=== PATIENT | female | born 1975 | race Caucasian/White ===

== ENCOUNTER 2022-05-25 01:38 | Outpatient (CLI) | payer BC, SELFPAY ==
--- OUTSIDE RECORDS SUMMARY | 2022-05-25 01:40 | XMS_ITS | Encounter Summary ---
:1975 Author Organization [facility] Address [place] [id number] Care Team Providers Name Role Phone Елена Coates MD Primary Care Provider Encounter Details Date Type Department Care Team Description 08/29/2017 Hospital Encounter Women's Health Resource Ashleigh Leach MD [facility] [address] [facility] [place] [address] OBSTETRICS & [phone] GYNECOLOGY [place] [address] (Wo rk) Social History Tobacco Use Types Packs/Day Years Used Date Former Smoker Cigarettes Quit: 10/07/19 Smokeless Tobacco: Never Used Alcohol Use Standard Drinks/Week Comments No 0 (1 standard drink = 0.6 oz pure alcoho l) Sex Assigned at Date Recorded Not on file documented as of this encounter Medications at Time of Discharge Medication Sig Dispensed Refills Start Date End Date oxyCODONE (ROXICODONE) 5 Take 1 tablet by 16 tablet 0 08/2810/09/2017 mg Tablet mouth every 4 hours as needed for Pain (Severe pain (7-10)). acetaminophen (TYLENOL) Take 325-650 mg by 0 09/0610/09/2017 325 mg Tablet mouth. Take by mouth. 0 05/22/2019 [id number] Tablet documented as of this encounter Plan of Treatment Not on filedocumented as of this encounter Visit Diagnoses Not on filedocumented in this encounter Care Teams Kindergarten Classroom Teacher Relationship Specialty Start Date End Date Елена Coates MD PCP - General 08/29/10 [address] [place] [address] documented as of this encounter
--- OUTSIDE RECORDS SUMMARY | 2022-05-25 01:40 | XMS_ITS | Encounter Summary ---
:1975 Author Organization [facility] [place] [address] Care Team Providers Name Role Phone Елена Coates MD Primary Care Provider Reason for Visit Reason Comments Care 6wk ck Encounter Details Date Type Department Care Team Description 10/09/2017 Visit Obstetrics and Carmen Rodríguez Encou nter for Gynecology at [facility] CONTENT DEVELOPMENT MANAGER routine [facility] MEDICAL follow-up [facility] [address] [place] OBSTETRICS & [id number] GYNECOLOGY [phone] [place], [place] [address] Social History Tobacco Use Types Packs/Day Years Used Date Former Smoker Cigarettes Quit: 10/07/19 Smokeless Tobacco: Never Used Alcohol Use Standard Drinks/Week Comments No 0 (1 standard drink = 0.6 oz pure alcoho l) Sex Assigned at Date Recorded Not on file documented as of this encounter Last Filed Vital Signs Vital Sign Reading Time Taken Comments Blood Pressure 137/81 10/09/2017 10:37 AM EST Pulse 93 10/09/2017 10:37 AM EST Temperature 36.7 ??C (98.1 ??F) 10/09/2017 10:37 AM EST Respiratory Rate - - Oxygen Saturation 100% 10/09/2017 10:37 AM EST Inhaled Oxygen Concentration - - Weight 51 kg (112 lb 6.4 oz) 10/09/2017 10:37 AM EST Height 160 cm (5' 3) 10/09/2017 10:37 AM EST Body Mass Index 19.91 10/09/2017 10:37 AM EST documented in this encounter Progress Notes Sara Murdock - 10/09/2017 10:40 AM EST REASON FOR VISIT: Post- exam LABOR & DEL: Pt del'd baby girl Tosha on Aug 26, C/S r/t failure to dilate, at 39 wks 5 day gestation. POLICE ACADEMY PROGRAM COORDINATOR HX: Pt is a age41 female with a hx of nl Paps. Last Pap 10/2015. No hx of STI. Medical, surgical, family and social hx reviewed ROS: Psych: PHQ 9 score 0 Breasts: : nipples sore at first, now no pain, pumping as of yesterday, no signs of mastitis Pelvic: denies pain, nl bowels and voiding Lochia: infrequent brown spotting after walking otherwise stopped bleeding two weeks ago Extremeties: no calf pain or swelling of leg CONTRACEPTION: Condoms, to get vasectomy PE: Abdomen: Without masses or tenderness Pelvic: External: WNL, laceration well healed, approximated, no sign infection Internal: WNL, cervix visualized, cytobrush used to obtain PAP Bimanual: Uterus a/v, no masses or tendernes, pre size Rectal: deferred ASSESSMENT: Unremarkable pp exam PLAN: Pap pending Carmen Snow APRN - 10/09/2017 10:40 AM EST REASON FOR VISIT: Post- exam LABOR & DEL: Pt del'd baby girl Tosha on Aug 26, C/S r/t failure to dilate, was 8 cm for 5 hrs, after TOLAC at 39 wks 5 day gestation. Pt presented with ROM, Pitocin used. POLICE ACADEMY PROGRAM COORDINATOR HX: Pt is a , 41 yo female with a hx of nl Paps. Last Pap 10/2015. No hx of STI. Medical, surgical, family and social hx reviewed ROS: Psych: PHQ 9 @ 0 Breasts: breast feeding very well, no concerns Pelvic: no concerns, couple have not had intercourse. Lochia: d/c 2 wks ago Extremeties: no pain CONTRACEPTION: condoms, might get vasectomy PE: Abdomen: Without masses or tenderness, incision completely healed Pelvic: External: WNL, Internal: WNL, cervix visualized, Pap obtained Bimanual: Uterus a/v, no masses or tendernes, pre size Rectal: deferred ASSESSMENT: Unremarkable pp exam PLAN: Pap pending documented in this encounter Plan of Treatment Not on filedocumented as of this encounter Procedures Procedure Name Priority Date/Time Associated Comments Diagnosis CYTOPATHOLOGY Routine 10/09/2017 1:21 PM Encounter for Results for this GYNECOLOGICAL EST routine procedur e are in follow-up the results section. HPV Routine 10/09/2017 10:40 Results for this AM EST procedure are i n the results section. RECTIFYING OPERATOR CYTOLOGY Routine 10/09/2017 10:40 Results for this INTERPRETATION AM EST procedure are in the results section. RECTIFYING OPERATOR CYTOLOGY FINAL Routine 10/09/2017 10:40 Resul ts for this REPORT AM EST procedure are i n the results section. documented in this encounter Results Cytopathology Gynecological (10/09/2017 1:21 PM EST) Specimen Anatomical Collection Method Collection Time Receive d Time (Source) Location / / Volume Laterality AP Specimen 10/09/2017 1:21 PM 8 1:21 EST PM EST Narrative [facility] - 10/09/2017 1:21 PM EST Specimen requisition ordered. ??Separate Pathology report to follow Carmen Rodríguez APRN PATHOLOGY/CYTOLOGY ORDERABLE S Performing Organization Address City/State/[place] [address] Lens Inserter Cytology Final Report (10/09/2017 10:40 AM EST) Component Value Ref Test Analysis Performed At [facility] gist Range Method Time Signature Lens Inserter Cytology [id number] ? Location: [facility] Final [facility] The signing pathologist has (i) examined the relevant preparation(s) for the [facility]ORIAL specimen(s) and (ii) rendered or confirmed the diagnosis(es) . HOSPITAL LABORATORY . ? Lens Inserter Final DIAGNOSIS Normal Negative for Intraepithelial Lesion or Malignancy (NILM). For consensus guidelines for the management of c ervical cancer screening test results, please see: ?? http://www.asccp.org . Electronically signed by: ??Nat CT(ASCP), Amanda L Verified: ??10/22/2017 ?Occupational Analyst Performed at: ??-[facility] Dept. of Pathology, [place], [place] HPV RESULTS HPV16 (Result) ?Negative HPV18 (Result) ?Negative HPVOHR (Result) ? Negative HPV (Interpretation) ?See Below HPV (Interpretation) Text: NEGATIVE for high-risk HPV *. *Testing negative for high risk HPV means that the specimen is negative for the following 14 types tested: types 16, 18, 31, 33, 35 , 39, 45, 51, 52, 56, 58, 59, 66, and 68. The test is not intended to detect low risk HPV types. Reggie bello HPV test Specimen: HPV Testing - Cytology Liquid Based Prep The Reggie bello ? HPV hao t was validated, performed and results reported through the Laboratory for Clinical Gen omics and Advanced Technology (CGAT) at [facility]. ? - Pedrito Mcelroy, PhD, FORMERLY [facility], Director-[facility] STATEMENT OF ADEQUACY Specimen submitted is satisfactory. Endocervical component present. CLINICAL INFORMATION HPV Option: ?Concurrent HPV and Pap Preparation: ? Liquid based Pap Specimen Source: ? Cervical/Endocervical LMP: ? 11/20/16 Hormones?: ? No Hysterectomy?: ? No ?: ? Yes ?: ? No I.U.D.?: ? No Pelvic Radiation: ?No Prior RECTIFYING OPERATOR Therapy?: ?No Hist Abnl Pap/Biopsy?: ?? No Hist of HPV Vaccine?: ?No Hist of Smoking?: ?Yes Hist of TALITA exposure?: ?? No ICD Diagnosis: ? Z12.4 Encounter for screening for malignant neoplasm of cervix Clinical Data, Significant Therapy and Clinical Impression ? ? : . CLINICAL INFORMATION ?_ This Pap Test has been evalu ated with the assistance of the 20linesp Pap Test Imaging System. Note: The Pap test is a screening test for cervical cancer with an inherent false-negative rate dependent upon several variables. For further information please contact the [facility] Laboratory. Reference: Shahid CONROY. Side Stitcher of Pap Smear Results. In: Irma BS, Nadir CASH, e av. The Pap Smear. [place]: Madi, 2002: 71-77. Specimen (Source) Anatomical Collection Method Collection Time Re ceived Time Location / / Volume Laterality 10/09/2017 10:40 AM EST Carmen Rodríguez APRN PATHOLOGY/CYTOLOGY ORDERABLE S Performing Organization Address City/State/[place] [address] RECTIFYING OPERATOR Cytology Interpretation (10/09/2017 10:40 AM EST) [facility] gist Method Time Signature Lens Inserter Cytology NILM [facility] Comment: Lens Inserter Cytology Final Report Acces kriss: [id number] Endocervical Component Present [facility] Specimen Anatomical Collection Method Collection Time Receive d Time (Source) Location / / Volume Laterality AP Specimen 10/09/2017 10:40 10/22/2017 4:50 AM EST PM EST Carmen Rodríguez APRN PATHOLOGY/CYTOLOGY ORDERABLE S Performing Organization Address City/State/[place] [address] HPV (10/09/2017 10:40 AM EST) [facility] Method Time Signature HPV 16 NEGATIVE NEGATIVE [facility] HPV 18 NEGATIVE NEGATIVE [facility] HPV Other HR NEGATIVE NEGATIVE [facility] HPV See Comment OVIDIO Interpretation [facility] Comment: NEGATIVE for high-risk HPV *. * Testing negative for high risk HPV davey ns that the specimen is negative for the following 14 types tested: ??types 1 6, 18, 31, 33, 35, 39, 45, 51, 52, 56, 58, 59, 66, and 68. ??The test is not in tended to detect low risk HPV types. Reggie Bello HPV test Specimen: HPV Testing - Cytology Liquid Based Prep Specimen Anatomical Collection Method Collection Time Receive d Time (Source) Location / / Volume Laterality Cervical swab 10/09/2017 10:40 10/09/2017 3:00 (specimen) AM EST PM EST Resulting Agency Comment Spec In Lab Carmen Rodríguez APRN PATHOLOGY/CYTOLOGY ORDERABLE S Performing Organization Address City/[facility]/[place]IP [place] [address] documented in this encounter Visit Diagnoses Diagnosis Encounter for routine follow- up Routine follow-up documented in this encounter Care Teams Ware Server Relationship Specialty Start Date End Date Елена Coates MD PCP - General 08/29/10 [address] [place] [address] documented as of this encounter
--- OUTSIDE RECORDS SUMMARY | 2022-05-25 01:40 | XMS_ITS | Clinical Summary ---
:1975 Author Organization 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 C/S for failure to descend, OP per pt AMA (advanced maternal age) multigravida 35+ 7 Overview: Formatting of this note is dif ferent from the original. Team/Centering [place] - pod review 08/15 Delivery Plan Likely - needs consen t Referring provider FIRST TRIMESTER NOB labs WNL Aneuploidy screen [place]/AFP negative CF screen Previously negative Other: early GCT, aspirin, TSH Baseline pre-eclampsia screen labs PATCH WASHER/Behavioral Health consult/ATP MFM/genetics SECOND TRIMESTER 18-20 week US scan Marginal cord Tubal paper signed THIRD TRIMESTER 28 week labs 06/04/17 gtt @ 151; will do 3 hr (WNL) testing SBIRT GBS Negative 36 week STD labs Contraception Tubal papers signed condom Infant nutrition breast Child education preferences Santa[employer]S Helper/ issues/ Circumcision St J pedi Planning IMMUNIZATIONS Influenza TDAP declines : Varicella, MMR, Pneumovax im m/imm *Aspirin High risk >= 3 Low risk TSH History preeclampsia Multifetal gestation Chronic hypertension Pre-gestational diabetes Renal disease Systemic lupus AntiPhospholipidAntibodySyndrome Nullipa rity Age >= 35 years >10 year interval between BMI > 30 kg/m2 ethnicity Mother or sister with preeclampsia Previous with IUGR Symptoms Personal history of thyroid disease or T PO antibodies Family history Goiter Autoimmune disease Type I diabetes Infertility or recurrent miscarriage BMI >40 kg/m2 Immigrant from areas of moderate to audrey re iodine deficiency Telogen effluvium 04/26/2015 Nevus 05/13/2014 Elevated blood pressure reading in office with white c oat syndrome, 02/09/2009 without diagnosis of hypertension Overview: At first visit. Pt taking BP at home. Baseline pre-eclampsia labs done and normal Resolved Problems Problem Noted Date Resolved Date CIS - at risk 02/09/2009 09/01/2014 Overview: Elevated MSAFP at 2.06 MOM X2 4 days apa rt Dating based on a 9 week ultrasound Local ultrasound at 18 weeks confirmed n ormal growth based on the first ultrasound. Encounters Date Type Specialty Care Team Description 05/15/2022 Office Visit Dermatology Dmitriy Becker, Atypical nevi; MD Ramsay 03/02/2022 Hospital Encounter Radiology Елена Coates, MD Stephanie middleton for screening mammogram from Last 3 Months Family History Medical History Relation Comments Congenital Anomalies Cousin at and w as missing several organs Heart Disease Father Hypertension Father Congenital Anomalies Father of Baby Relative 1 His cousin nicolas rminated a due to anomalies ( organs were on the outside of the body) Loss Father of Baby Relative 2 His mother had a stillborn daughter Genetic Disorder Mother Gilbert syndrome Heart Disease Paternal Grandfather Hyperlipidemia Paternal Grandfather Hypertension Paternal Grandfather Genetic Disorder Sister Gilbert syndrome Allergies Son Peanut/tree nut Relation Status Comments Cousin Father Father of Baby Relative 1 Father of Baby Relative 2 Maternal Grandfather Mother Paternal Grandfather Sister Son Social History Tobacco Use Types Packs/Day Years Used Date Former Smoker Cigarettes Quit: 10/07/19 Smokeless Tobacco: Never Used Alcohol Use Standard Drinks/Week Comments No 0 (1 standard drink = 0.6 oz pure alcoho l) Sex Assigned at Date Recorded Not on file Last Filed Vital Signs Vital Sign Reading Time Taken Comments Blood Pressure 137/81 10/09/2017 10:37 AM EST Pulse 93 10/09/2017 10:37 AM EST Temperature 36.7 ??C (98.1 ??F) 10/09/2017 10:37 AM EST Respiratory Rate 16 08/28/2017 8:31 AM EST Oxygen Saturation 100% 10/09/2017 10:37 AM EST Inhaled Oxygen Concentration - - Weight 51 kg (112 lb 6.4 oz) 10/09/2017 10:37 AM EST Height 160 cm (5' 3) 10/09/2017 10:37 AM EST Body Mass Index 19.91 10/09/2017 10:37 AM EST Plan of Treatment Health Maintenance Due Date Last Done Comments Covid-19 Vaccine (#1) 1982 Hepatitis C Screening 1995 Lipid Screening 1995 Tdap adult 1996 Tetanus vaccine 1996 Breast Cancer Share Decision 2017 Needed Influenza (Flu) vaccine (1 of - 06/07/2022 Influenza standard series) HPV test 10/09/2022 10/09/2017 PAP Smear 10/09/2022 10/09/2017, 05/24/2008, 12/25/2006, Additional history exists HIV screen Completed 02/12/2017 Procedures Procedure Name Priority Date/Time Associated Diagnosis Comme nts MAMMO SCREENING CAD Routine 03/02/2022 8:06 AM Visit for ender fenton Results for this AND BENJI BILATERAL EDT mammogram procedure are in the results section. from Last 3 Months Results Mammo Screening Cad and Benji Bilateral (03/02/2022 8:06 AM EDT) Anatomical Region Laterality Modality Breast Bilateral Mammography Specimen (Source) Anatomical Location Collection Method / Collectio n Time Received Time / Laterality Volume Narrative 03/02/2022 11:06 AM EDT EXAMINATION: MAMMO SCREENING CAD AND BENJI BILATERAL REASON FOR EXAM: Screening TECHNIQUE: 2D digitally acquired Cranioc audal (CC) and Medio-lateral oblique (MLO) views were obtained of each breast . 3D tomosynthesis images were obtained in addition to 2D images. ??Computer Ass isted Detection was used. COMPARISON: Baseline mammogram FINDINGS: The breasts are heterogeneousl y dense, which may obscure small masses. There are no suspicious microcalcificati ons, masses, or areas of distortion. No changes compared to prior studies. CONCLUSION: No mammographic evidence of malignancy. RECOMMENDATION: Routine annual screening BI-RADS CATEGORY 1: NEGATIVE * ??Regular screening mammograms startin g between age 40 and 50 reduces the risk of from breast cancer. * ??All screening tests have both risks and benefits. These risks and benefits should be assessed for each individual p atient through discussion with their provider to determine their preferred br east cancer screening schedule. * ??Women should report any breast king es to a health care provider right away. * ??Some women, because of their family history, a genetic tendency, or other factors, should be screened with annual breast MRI as well as with mammograms. (The number of women who fall into this category is very small). Patients and health care providers should discuss eac h patients history to decide if earlier screening and/or breast MRI are appropri ate. * ??Screening should continue as long as a woman is in good health and is expected to live 10 years or longer. * ??Screening mammography may not detect 10-15% of breast cancers. Thank you for letting us participate in the care of this patient. ??If you are a health care provider and have any questi ons regarding this report, please contact the number below. ??For patients who have questions please contact the health care coordinator that requested your imaging first. ? Елена Coates MD IMG MAMMO ORDERABLES from Last 3 Months Insurance Payer Benefit Plan Subscriber ID Effective Dates Phone Address Type / Group [facility] [id number] 2021-Presen [phone] [address] [place] [address] Advance Directives Latest Code Status on File Code Status Date Activated Date Inactivated Comments Full Code 08/25/2017 5:59 AM 08/28/2017 3:12 PM Does patient have capacity to make decision: Yes Care Teams Programming Coordinator Relationship Specialty Start Date End Date Елена Coates MD PCP - General 08/29/10 [address] [place], [place] [address]
--- OUTSIDE RECORDS SUMMARY | 2022-05-25 01:40 | XMS_ITS | Encounter Summary ---
:1975 Author Organization [place] [address] Care Team Providers Name Role Phone Елена Coates MD Primary Care Provider Encounter Details Date Type Department Care Team Description 03/02/2022 Hospital Encounter Mammography/DXA at Елена Coates V isit for screening [facility] MD mammogram [address], [address] [place] [address] [phone] Social History Tobacco Use Types Packs/Day Years Used Date Former Smoker Cigarettes Quit: 10/07/19 Smokeless Tobacco: Never Used Alcohol Use Standard Drinks/Week Comments No 0 (1 standard drink = 0.6 oz pure alcoho l) Sex Assigned at Date Recorded Not on file documented as of this encounter Plan of Treatment Not on filedocumented as of this encounter Procedures Procedure Name Priority Date/Time Associated Diagnosis Comme nts MAMMO SCREENING CAD Routine 03/02/2022 8:06 AM Visit for ender fenton Results for this AND BENJI BILATERAL EDT mammogram procedure are in the results section. documented in this encounter Results Mammo Screening Cad and Benji Bilateral [...] have questions please contact the health care provider that requested your imaging first. ? Елена Coates MD IMG MAMMO ORDERABLES documented in this encounter Visit Diagnoses Diagnosis Visit for screening mammogram Other screening mammogram documented in this encounter Care Teams Park Services Specialist Relationship Specialty Start Date End Date Елена Coates MD PCP - General 08/29/10 [address] [place] [address] documented as of this encounter
--- OUTSIDE RECORDS SUMMARY | 2022-05-25 01:40 | XMS_ITS | Encounter Summary ---
:1975 Author Organization [facility] [place] [address] Care Team Providers Name Role Phone Елена Coates MD Primary Care Provider Reason for Visit Reason Comments Follow-up Skin Check Encounter Details Date Type Department Care Team Description 05/22/2019 Office Visit Dermatology at Dmitriy Becker MD Atypical nevus; [place] [address] Melasma [address] [facility] Rodolfo DERMAT[place] [address] [place], [place] [phone] (Wo rk) [phone] Social History Tobacco Use Types Packs/Day Years Used Date Former Smoker Cigarettes Quit: 10/07/19 Smokeless Tobacco: Never Used Alcohol Use Standard Drinks/Week Comments No 0 (1 standard drink = 0.6 oz pure alcoho l) Sex Assigned at Date Recorded Not on file documented as of this encounter Progress Notes Dmitriy Becker MD - 05/22/2019 10:15 AM EDT Problem: 1. Repeat skin checkup 2. 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 She is here for a every 2 year skin checkup. She has numerous nevi and would like to have these checked. Physical examination reveals a pleasant 43-year-old woman who has a number of mildly atypical nevi in the upper back. She has brown eyes and type III Lam pigmentation but relatively otherwise fair skin. She has junctional melanocytic nevi present also on the forearms and on her legs. She has mild melasma on the right medial cheek and also a little bit on the upper malar prominence. Otherwise examination of the head and the neck the chest the back the hands informs thighs and calves benign. Assessment and plan: Benign nevi benign skin examination 1. Return to clinic in 2 to 3 years for recheck. 2. Patient reassured, continue sun with precautions. Melasma/solar lentigo right malar prominence 1. Prescription given for hydroquinone 4% cream to apply every morning, dispense 30 g with 3 refills, and tretinoin 0.025% cream 20 g, with 3 refills apply nightly. Patient may feel this utilizing the dentaZOOM website as she has a high co-pay. 2. Discussed the option of [place] mail away pharmacy's for instance for her EpiPen requirement forher son. Otherwise it would be a $300 to 600 [id number] cost for this. CC: Елена Coates MD documented in this encounter Plan of Treatment Not on filedocumented as of this encounter Visit Diagnoses Diagnosis Atypical nevus Benign neoplasm of skin, site unspecifie d Melasma Other dyschromia documented in this encounter Care Teams Materials Management Clerk Relationship Specialty Start Date End Date Елена Coates MD PCP - General 08/29/10 [address] [place] [address] documented as of this encounter
--- OUTSIDE RECORDS SUMMARY | 2022-05-25 01:40 | XMS_ITS | Encounter Summary ---
:1975 Author Organization [facility] [place] [address] Care Team Providers Name Role Phone Елена Coates MD Primary Care Provider Reason for Visit Reason Comments Annual Exam Encounter Details Date Type Department Care Team Description 05/15/2022 Office Visit Dermatology at [facility] Dmitriy Becker MD Atypical nevi; [address] [place] [address] Melasma [place] [address] [place], [place] [id number] (Wo rk) Social History Tobacco Use Types Packs/Day Years Used Date Former Smoker Cigarettes Quit: 10/07/19 Smokeless Tobacco: Never Used Alcohol Use Standard Drinks/Week Comments No 0 (1 standard drink = 0.6 oz pure alcoho l) Sex Assigned at Date Recorded Not on file documented as of this encounter Progress Notes Dmitriy Becker MD - 05/15/2022 10:30 AM EDT Problem: 1. Repeat every 2-3 year skin checkup 2. History of facial melasma last evaluated May 2019 Sisi follows up and is now 46. She would like to have a general skin checkup. 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 She did not fill the hydroquinone prescription from her 2019 visit, having lost the prescription. However she would like to have another prescription for hydroquinone cream and also my advice for treating a persistent comedonal on the right upper lip along the vermilion border, and her general every 2-3 year skin checkup.. Physical examination reveals a pleasant 46-year-old woman who has a number of mildly atypical nevi on her upper back. She has brown eyes and type III Lam pigmentation but otherwise fair skin she has benign examination of the head and the neck the chest the back the hands and forearms thighs and calves. She has mild melasma on the lateral cheeks bilaterally. There is no evidence of any malignant lesions. Assessment plan: Benign nevi benign skin examination 1. Return to clinic another 2 to 3 years for repeat check 2. Patient reassured about her benign skin examination today Melasma/solar lentigo facial sites 1. Patient given refill for hydroquinone 4% cream to apply in a twice daily basis. Dispense 30 g with 5 refills. She was given a written prescription for this today. Comedonal upper lip along vermilion vermilion border 1. Patient has just purchased a vitamin a serum, from the [employer], advised that she use this for a month or 2 to see if this will help clear the single comedone on the upper lip. 2. If not begin tretinoin 0.025% cream applying on a nightly basis to affected area dispense 20 g with 5 refills. She was given a written prescription for this. CC: Елена Coates MD documented in this encounter Plan of Treatment Not on filedocumented as of this encounter Visit Diagnoses Diagnosis Atypical nevi Benign neoplasm of skin, site unspecifie d Melasma Other dyschromia documented in this encounter Care Teams Steamer Gum Candy Relationship Specialty Start Date End Date Елена Coates MD PCP - General 08/29/10 [address] [place] [address] documented as of this encounter
--- OUTSIDE RECORDS SUMMARY | 2022-05-25 01:41 | XMS_ITS | Encounter Summary ---
:1975 Author Organization [facility] [place] [address] Care Team Providers Name Role Phone Елена Coates MD Primary Care Provider Reason for Visit Reason Comments Routine Visit Encounter Details Date Type Department Care Team Description 08/13/2017 Routine Obstetrics and Carmen Rodríguez APRN GA: 38w0d Gynecology at [facility] [address] [place] & [place] [address] GYNECOLOGY [phone] [place], [place] [address] (Wo rk) Social History Tobacco Use Types Packs/Day Years Used Date Former Smoker Cigarettes Quit: 10/07/19 Smokeless Tobacco: Never Used Alcohol Use Standard Drinks/Week Comments No 0 (1 standard drink = 0.6 oz pure alcoho l) Sex Assigned at Date Recorded Not on file documented as of this encounter Last Filed Vital Signs Vital Sign Reading Time Taken Comments Blood Pressure 132/81 08/13/2017 11:17 AM EST Pulse - - Temperature - - Respiratory Rate - - Oxygen Saturation - - Inhaled Oxygen Concentration - - Weight 60.7 kg (133 lb 12.8 oz) 08/13/2017 11:17 AM EST Height - - Body Mass Index 23.51 01/22/2017 10:20 AM EDT documented in this encounter Progress Notes Shanice Schofield LPN - 08/13/2017 11:20 AM EST The patient denies travel by her or her partner to an area with endemic Zika infection including [place]. Carmen Rodríguez APRN - 08/13/2017 11:20 AM EST No cramps, bleeding or LOF. Baby active, would like membrane sweep today, is hoping for . Cervical exam performed; presenting part very high, bedside US confirms cephalic. documented in this encounter Plan of Treatment Not on filedocumented as of this encounter Visit Diagnoses Diagnosis AMA (advanced maternal age) multigravida 35+, third trimester documented in this encounter Care Teams Animal Control Supervisor Relationship Specialty Start Date End Date Елена Coates MD PCP - General 08/29/10 [address] [place] [address] documented as of this encounter
--- OUTSIDE RECORDS SUMMARY | 2022-05-25 01:41 | XMS_ITS | Encounter Summary ---
:1975 Author Organization [facility] [place] [address] Care Team Providers Name Role Phone Елена Coates MD Primary Care Provider Encounter Details Date Type Department Care Team Description 05/24/2008 Orders Only Radiology and Cardiology Apd Conversion, Results Results Provider, [address] [place] [phone] Social History Tobacco Use Types Packs/Day Years Used Date Never Assessed Sex Assigned at Date Recorded Not on file documented as of this encounter Plan of Treatment Not on filedocumented as of this encounter Procedures Procedure Name Priority Date/Time Associated Diagnosis Comme nts CYTOPATHOLOGY Routine 05/24/2008 Results for th is GYNECOLOGICAL procedure are in the results section . documented in this encounter Results (ABNORMAL) Cytopathology Gynecological (05/24/2008) [facility] Method Time Signature Solar Resource Assessor Cytology Please see [facility]ERE FAIRCHILD Final Report Bere Verma CONVERSION legacy report (External Lab) Specimen (Source) Anatomical Location Collection Method / Collectio n Time Received Time / Laterality Volume 05/24/2008 Narrative BERE VERMA CONVERSION - 05/31/2008 Please see Bere Fairchild Legacy report Results Provider Apd Conversion PATHOLOGY/CYTOLOGY ORDERABLES Performing Organization Address City/State/ZIP Code Phon e Number BERE VERMA CONVERSION [address] [place], [place] [address] [facility] CONVERSION documented in this encounter Visit Diagnoses Not on filedocumented in this encounter Care Teams Ruby Developer Relationship Specialty Start Date End Date Елена Coates MD PCP - General 08/29/10 [address] [place] [address] documented as of this encounter
--- OUTSIDE RECORDS SUMMARY | 2022-05-25 01:41 | XMS_ITS | Encounter Summary ---
:1975 Author Organization [facility] [place] [address] Care Team Providers Name Role Phone Елена Coates MD Primary Care Provider Reason for Visit Reason Onset Date Comments Results 02/18/2017 Encounter Details Date Type Department Care Team Description 02/18/2017 Telephone Obstetrics and Gynecology at [facility] Gen garrett LGC Results [facility] [address] OBSTETRICS & [place] [address] [place] [address] [phone] (Wo rk) Social History Tobacco Use Types Packs/Day Years Used Date Former Smoker Cigarettes Quit: 10/07/19 Smokeless Tobacco: Never Used Alcohol Use Standard Drinks/Week Comments No 0 (1 standard drink = 0.6 oz pure alcoho l) Sex Assigned at Date Recorded Not on file documented as of this encounter Miscellaneous Notes Telephone Encounter - Gen Burroughs LGC - 02/18/2017 1:59 PM EDT Genetic Counseling Telephone Note I informed Sisi Ruiz of the following results by phone today: [place] Test: Condition Result Probability Trisomy 21 Low Probability Less than 1/10,000 Trisomy 18 Low Probability Less than 1/10,000 Trisomy 13 Low Probability Less than 1/10,000 Monosomy X Low Probability Less than 1/100 Sex Female The laboratory report will be scanned into eD-H. documented in this encounter Plan of Treatment Not on filedocumented as of this encounter Visit Diagnoses Not on filedocumented in this encounter Care Teams Test Engineering Intern Relationship Specialty Start Date End Date Елена Coates MD PCP - General 08/29/[address] [facility] [address] [place] [address] documented as of this encounter
--- OUTSIDE RECORDS SUMMARY | 2022-05-25 01:41 | XMS_ITS | Encounter Summary ---
:1975 Author Organization [facility] [place] [address] Care Team Providers Name Role Phone Еелна Coates MD Primary Care Provider Reason for Visit Reason Comments Routine Visit Encounter Details Date Type Department Care Team Description 08/02/2017 Routine Obstetrics and Rachell Alex MD GA: 36w3d Gynecology at [facility] [address] [place] [address] GYNECOLOGY [phone] [place], [place] [address] (Wo rk) Social History Tobacco Use Types Packs/Day Years Used Date Former Smoker Cigarettes Quit: 10/07/19 Smokeless Tobacco: Never Used Alcohol Use Standard Drinks/Week Comments No 0 (1 standard drink = 0.6 oz pure alcoho l) Sex Assigned at Date Recorded Not on file documented as of this encounter Last Filed Vital Signs Vital Sign Reading Time Taken Comments Blood Pressure 130/83 08/02/2017 4:41 PM EDT Pulse - - Temperature - - Respiratory Rate - - Oxygen Saturation - - Inhaled Oxygen Concentration - - Weight 60.3 kg (133 lb) 08/02/2017 4:41 PM EDT Height - - Body Mass Index 23.37 01/22/2017 10:20 AM EDT documented in this encounter Progress Notes Shanice Schofield LPN - 08/02/2017 4:30 PM EDT The patient denies travel by her or her partner to an area with endemic Zika infection including [place]. Declines Tdap immunization. The patient was given two booklets; Going Home with Your and Anesthesia Guidelines. A Labor instructions term pamphlet, Group B Streptococcus Informational Sheet, and Circumcision Letter (if applicable) was also given. The patient received additional pamphlets entitled Position and Tips for Successful and [facility] Services. The importance of the materials was discussed and the patient was encouraged to read the information and direct questions to the provider. Rachell Alex MD - 08/02/2017 4:30 PM EDT Sisi presents for a PNC visit at 36+3. She has been feeling well and has no complaints. + movement, no ctx, no LOF/VB. Delivery mode: She is strongly considering but nervous about having a long labor and needing a . Her first : PROM @ 41 wks, IOL, 37 hrs labor, 10 cm dilated, pushed a little but was told heruterus wasn't luis carlos well, developed a fever and underwent LTCS of 7 lb 12 oz . EFW 83%ile on 32 wk growth scan. My clinical EFW today is 5-6 lbs, does not seem LGA. We discussed risks of including ~1% risk of uterine rupture. We also discussed possibly electing if spontaneous labor and C/S if not if she wants to avoid induction. She would like to keep her mind open at this point, but hopes to have a vaginal . We did not sign a consent form today. We also discussed labor precautions, when to call and options for analgesia during labor. GBS collected. - next visit in 1 wk - will request C/S operative note Rachell Alex MD PGY2 Josseline Milner MD - 08/02/2017 4:30 PM EDT The case was discussed at the time of the visit or immediately after the visit. The assessment and plan were formulated in discussion with me and I agree with them as documented. I have reviewed the history, physical exam, assessment and plan with the resident. documented in this encounter Plan of Treatment Not on filedocumented as of this encounter Procedures Procedure Name Priority Date/Time Associated Comments Diagnosis GROUP B STREPTOCOCCUS Routine 08/02/2017 5:10 PM Results for this SCREEN EDT procedure are i n the results section. GROUP B STREP CULTURE Routine 08/02/2017 5:10 PM Encounter for Results for this SCREEN EDT related procedure are in examination in the results third trimester section. documented in this encounter Results Group B Streptococcus Screen (08/02/2017 5:10 PM EDT) P athologist Signature Group B Strep Neg [facility] LABORAT[facility] Specimen (Source) Anatomical Collection Method Collection Time Re ceived Time Location / / Volume Laterality Pooled specimen 08/02/2017 5:10 7 5:50 from vaginal PM EDT PM EDT introitus and rectal swab (specimen) Comment: Penicillin Allergy?->No Resulting Agency Comment Spec In Lab Josseline Milner MD MICROBIOLOGY - GENERAL ORDER JEANMARIE Performing Organization Address City/State/[place] [address] Group B Strep Culture Screen (08/02/2017 5:10 PM EDT) Component Value Ref Test Analysis Performed At Patholo gist Range Method Time Signature Group B No Group B OVIDIO Streptococcus Streptococci CELY Culture isolated [facility] Specimen (Source) Anatomical Collection Method Collection Time Re ceived Time Location / / Volume Laterality Pooled specimen 08/02/2017 5:10 7 5:50 from vaginal PM EDT PM EDT introitus and rectal swab (specimen) Comment: PENICILLIN ALLERGY?->NO Resulting Agency Comment Spec In Lab Josseline Milner MD MICROBIOLOGY - GENERAL ORDER JEANMARIE Performing Organization Address City/State/[place] [address] documented in this encounter Visit Diagnoses Diagnosis Encounter for related examinat ion in third trimester Elevated blood pressure reading in offic e with white coat syndrome, without diagnosis of hypertension Elderly multigravida in third trimester documented in this encounter Care Teams Speeder Machine Operator Relationship Specialty Start Date End Date Елена Coates MD PCP - General 08/29/10 [address] [place] [address] documented as of this encounter
--- OUTSIDE RECORDS SUMMARY | 2022-05-25 01:41 | XMS_ITS | Encounter Summary ---
:1975 Author Organization [facility] [place] [address] Care Team Providers Name Role Phone Елена Coates MD Primary Care Provider Reason for Visit Reason Comments Advanced Maternal Age [age] years old at [facility] Encounter Details Date Type Department Care Team Description 07/13/2014 Office Visit Obstetrics and Gen Burroughs, Materna l age 35+, multigravida, antepartum, first trimester (Primary Dx); Gynecology at [facility] Encounter for genetic counseling [facility] [address] [place], [place] OBSTETRICS & [address] GYNECOLOGY [phone] [place], [place] [address] Social History Tobacco Use Types Packs/Day Years Used Date Former Smoker Alcohol Use Standard Drinks/Week Comments No 0 (1 standard drink = 0.6 oz pure alcoho l) Sex Assigned at Date Recorded Not on file documented as of this encounter Progress Notes Gen Burroughs, MS - 07/13/2014 10:04 AM EDT GENETIC COUNSELING NOTE Sisi Pilar Joseph was referred to the Diagnosis Program by Anita Carlson CNM. I met with Sisi for a 45 minute genetic counseling visit. Chief Complaint Patient presents with ??? Advanced Maternal Age [age] years old at [facility] Past Medical History Diagnosis Date ??? White coat hypertension ??? Childhood asthma ??? Migraine headache Family History Problem (# of Occurrences) Relation (Name,Age of Onset) Allergies (1) Son: Peanut/tree nut Congenital Anomalies (2) Cousin: at and was missing several organs, Father of Baby Relative: His cousin terminated a due to anomalies (organs were on the outside of the body) Genetic Disorder (2) Mother: Gilbert syndrome, Sister: Gilbert syndrome Loss (1) Father of Baby Relative: His mother had a stillborn daughter The reported family history was otherwise unremarkable for intellectual disability, congenital anomalies, recurrent loss, or known genetic conditions. Sisi is of Chinese, Kyrgyz, Malian, and ancestry. Her partner, Kevin Merchant, is of Frisian and Belarusian ancestry. Consanguinity is denied. OB History Grav Para Term Abortions TAB SAB Ect Mult Living 3 1 1 1 1 1 Patient's last menstrual period was 04/20/2014. Estimated Date of Delivery: 01/25/2015 based on menstrual dating and confirmed by ultrasound (10w0d on 06/30/2014). Screening Results Test Result ??? Cystic fibrosis carrier screen Negative for 97 mutations ??? Thalassemia screen MCV within normal limits (86.8 fL) Assessment 38 y.o. female currently at 12w0d gestation who desires aneuploidy screening. Discussion Advancing maternal age is associated with an increased rate of aneuploidy due to nondisjunction. We discussed the difference between screening and diagnostic testing for aneuploidy. After reviewing the benefits, risks, and limitations of each type of test, Sisi stated that she would like to have a screening test at this time. She would consider diagnostic testing for a positive screen. We are offering the [place] Test, which is a type of cell-free DNA screening, to women of advanced maternal age. The [place] Test provides a risk score for trisomy 21, trisomy 18, andtrisomy 13. X and Y analysis for sex chromosome aneuploidy is also available. We discussed the sensitivity and specificity of the test for each condition. Sisi opted for the [place] Test with Y analysis; she would like to know the sex of the fetus but declines screening for X chromosome aneuploidy. Plan Sisi will have her blood drawn today for the [place] Test with Y Analysis. Results are expected in 10-14 days. I will call her when the results are available. documented in this encounter Miscellaneous Notes Miscellaneous - Provider, Scanning - 07/29/2014 5:35 PM EDT Miscellaneous - Provider, Scanning - 07/29/2014 5:33 PM EDT documented in this encounter Plan of Treatment Not on filedocumented as of this encounter Results Miscellaneous Lab request (07/13/2014 10:09 AM EDT) [facility] gist Method Time Signature [facility] Lab Request CERNER Result received in [facility] lab. Specimen Anatomical Collection Method Collection Time Receive d Time (Source) Location / / Volume Laterality Blood specimen 07/13/2014 10:09 4 (specimen) AM EDT 11:59 AM EDT E Amanda Mason MD HEMATOLOGY ORDERABLES Performing Organization Address City/State/[place] [address] [facility] documented in this encounter Visit Diagnoses Diagnosis Maternal age 35+, multigravida, antepart um, first trimester - Primary Encounter for genetic counseling Genetic counseling documented in this encounter Care Teams Program Director Relationship Specialty Start Date End Date Елена Coates MD PCP - General 08/29/10 [address] [place] [address] documented as of this encounter
--- OUTSIDE RECORDS SUMMARY | 2022-05-25 01:41 | XMS_ITS | Encounter Summary ---
:1975 Author Organization [facility] [place] [address] Care Team Providers Name Role Phone Елена Coates MD Primary Care Provider Reason for Visit Reason Comments Advice Only Ultrasound Encounter Details Date Type Department Care Team Description 09/01/2014 Office Visit Obstetrics and Nathaniel Mason Subchorionic hemorrhage, second trimester; Gynecology at [facility] MD Amanda Elevated AFP [address] [address] [place] OBSTETRICS & [phone] GYNECOLOGY [phone] [place], [place] [address] Social History Tobacco Use Types Packs/Day Years Used Date Former Smoker Alcohol Use Standard Drinks/Week Comments No 0 (1 standard drink = 0.6 oz pure alcoho l) Sex Assigned at Date Recorded Not on file documented as of this encounter Last Filed Vital Signs Vital Sign Reading Time Taken Comments Blood Pressure 122/80 09/01/2014 1:19 PM EST Pulse - - Temperature - - Respiratory Rate - - Oxygen Saturation - - Inhaled Oxygen Concentration - - Weight 52.2 kg (115 lb) 09/01/2014 1:19 PM EST Height - - Body Mass Index - - documented in this encounter Progress Notes Nathaniel Mason MD - 09/01/2014 2:33 PM EST Diagnosis/Maternal Medicine Consult Note Sisibenjy Ruiz is a 38 y.o. year old female who is at 19w1d gestation. She is seen in consultation at the request of Eliana Sharp MD for evaluation of anatomy due to elevated MS-AFP. She was seen today for maternal- medicine consultation, ultrasound evaluation and genetic counseling with Gen Burroughs MS. Review of Systems Constitutional:feels well Movement: normal Contractions: none Leaking: None Bleeding: Continues with intermittent bleeding, which has been ongoing since July Patient Active Problem List Diagnosis Date Noted ??? Nevus 05/13/2014 ??? CIS - White Coat Hypertension 02/09/2009 Past Medical History Diagnosis Date ??? White coat hypertension ??? Childhood asthma ??? Migraine headache Past Surgical History Procedure Laterality Date ??? section, low transverse 07/16/2009 Family History Problem Relation Age of Onset ??? Genetic Disorder Mother Gilbert syndrome ??? Genetic Disorder Sister Gilbert syndrome ??? Congenital Anomalies Cousin at and was missing several organs ??? Congenital Anomalies Father of Baby Relative His cousin terminated a due to anomalies (organs were on the outside of the body) ??? Loss Father of Baby Relative His mother had a stillborn daughter ??? Allergies Son Peanut/tree nut Social History Occupational History ??? Not on file. Social History Main Topics ??? Smoking status: Former Smoker ??? Smokeless tobacco: Not on file ??? Alcohol Use: No ??? Drug Use: No ??? Sexual Activity: Not on file OB History Para Term AB TAB SAB Ectopic Multiple Living 3 1 1 1 1 1 # Outc Date GA Lbr Ankur/2nd Wgt Sex Del Anes PTL Lv 3 Current 2 Term 07/2009 41w0d 3.515 kg (7 lb 12 oz) CS-LTranv Spinal Y 1 TAB Current Outpatient Prescriptions Medication Sig Dispense Refill ??? Llmgpoot-Qa-Cwh-Fe-FA Tablet Take by mouth. No current facility-administered medications for this visit. Allergies Allergen Reactions ??? Aleve [Naproxen Sodium] Ultrasound Date: 09/01/2014 Amniotic fluid volume normal Presentation cephalic Placenta posterior, fundal, right lateral Growth appropriate for gestational age anatomy is remarkable for dilated loops of bowel of uncertain significance. Physical Exam BP 122/80 Wt 52.164 kg (115 lb) LMP 04/20/2014 General: alert, well appearing, in no apparent distress, oriented to person, place and time HEENT: normocephalic, atraumatic Abdomen: Soft, nontender Extremities: no edema Neurologic:alert, oriented, normal speech, no focal findings or movement disorder noted Psychiatric: Affect is Appropriate. Assessment and Recommendations: 38 y.o. year old female at 19w1d weeks gestation, referred for counseling regarding increased risk for neural tube defect. The patient was counseled regarding the limitations of ultrasound, andthe incidence of congenital malformations in the general population. Serum screening will detect approximately 85% of open neural tube defects, ultrasound will detect 90-95% and amniocentesis will detect and additional 2 - 3%, bringing the diagnosis rate to 98%. Closed neural tube defects aregenerally not detected by serum screening or amniocentesis, and are more difficult to detect by ultrasound. The patient declined amniocentesis today. All questions were answered, and she demonstrated adequate comprehension of the concepts that were discussed. Dilated loops of bowel are commonly seen in the third trimester, however it is somewhat unusual to see them in the second trimester. The patient had negative CF screening in the past (97 mutations). This may represent normal variant or a bowel malformation. There is a large subchorionic collection. I reviewed the increased risks of demise, abruption, delivery, premature rupture of membranes and growth disturbance. I recommend follow-up ultrasound at 26 and 30 weeks. I appreciate the opportunity to be involved in this patients care, and am available if further questions should arise. Nathaniel MASON MD 09/01/2014 Cc: Eliana Sharp MD [address] [place] [address] , with copy of ultrasound report documented in this encounter Plan of Treatment Not on filedocumented as of this encounter Visit Diagnoses Diagnosis Subchorionic hemorrhage, second trimeste r Elevated AFP Other nonspecific findings on examinatio n of blood documented in this encounter Care Teams General Office Associate Relationship Specialty Start Date End Date Елена Coates MD PCP - General 08/29/10 [address] [place] [address] documented as of this encounter
--- OUTSIDE RECORDS SUMMARY | 2022-05-25 01:41 | XMS_ITS | Encounter Summary ---
:1975 Author Organization [facility] [place] [address] Care Team Providers Name Role Phone Елена Coates MD Primary Care Provider Encounter Details Date Type Department Care Team Description 06/05/2017 Orders Only Obstetrics and Carmen Rodríguez, Elevated glucose tolerance test; Gynecology at [facility] CLAIM ADJUSTER AMA (advanced maternal age) multigravida 35+, third trimester [facility] [place], [place] OBSTETRICS & [phone] GYNECOLOGY [phone] [place], [place] [address] Social History Tobacco Use Types Packs/Day Years Used Date Former Smoker Cigarettes Quit: 10/07/19 Smokeless Tobacco: Never Used Alcohol Use Standard Drinks/Week Comments No 0 (1 standard drink = 0.6 oz pure alcoho l) Sex Assigned at Date Recorded Not on file documented as of this encounter Plan of Treatment Not on filedocumented as of this encounter Visit Diagnoses Diagnosis Elevated glucose tolerance test Impaired glucose tolerance test AMA (advanced maternal age) multigravida 35+, third trimester documented in this encounter Care Teams Numerical Control Nesting Operator Relationship Specialty Start Date End Date Елена Coates MD PCP - General 08/29/10 [address] [place] [address] documented as of this encounter
--- OUTSIDE RECORDS SUMMARY | 2022-05-25 01:41 | XMS_ITS | Encounter Summary ---
:1975 Author Organization [facility] Address [address] [place] [address] Care Team Providers Name Role Phone Елена Coates MD Primary Care Provider Reason for Visit Reason Comments Advanced Maternal Age [age] years old at [facility] Consultation (Routine) - Closed Specialty Diagnoses / Procedures Referred By Contact Refer red To Contact Genetics / Obstetrics Diagnoses maternal age Carmen Rodríguez, [facility] Line Construction Supervisor 5l and Gynecology Procedures genetic consult JUDGE CLERK [facility] [address] [place]ICS & [phone] [place] [address] Referral ID Status Reason Start Date Expiration Date Visits Requ ested Visits Authorized [id number] Closed 01/24/2017 01/24/2018 1 1 Encounter Details Date Type Department Care Team Description 02/12/2017 Office Visit Obstetrics and Gen Burroughs, Materna l age 35+, multigravida, first trimester; [facility]cology at [facility] Encounter for genetic counseling; [facility] Agueda lopez for screening of mother Drive [address] [place]ICS & [phone] GYNECOLOGY [phone] [place], [place] [address] Social History Tobacco Use Types Packs/Day Years Used Date Former Smoker Cigarettes Quit: 10/07/19 00 Smokeless Tobacco: Never Used Alcohol Use Standard Drinks/Week Comments No 0 (1 standard drink = 0.6 oz pure alcoho l) Sex Assigned at Date Recorded Not on file documented as of this encounter Progress Notes Gen Burroughs, [facility] - 02/12/2017 12:30 PM EDT Genetic Counseling Note Sisi Ruiz is a 41 y.o. female currently at 12w0d gestation. She was referred to the Diagnosis Program by Carmen Rodríguez APRN. I met with Sisi for a 70 minute genetic counseling visit. Chief Complaint Patient presents with ??? Advanced Maternal Age [age] years old at [facility] Past Medical History: Diagnosis Date ??? Anxiety social anxiety ??? Childhood asthma ??? Migraine headache ??? Varicella ??? White coat hypertension Family History Problem (# of Occurrences) Relation (Name,Age of Onset) Allergies (1) Son: Peanut/tree nut Congenital Anomalies (2) Cousin: at and was missing several organs, Father of Baby Relative: His cousin terminated a due to anomalies (organs were on the outside of the body) Genetic Disorder (2) Mother: Gilbert syndrome, Sister: Gilbert syndrome Heart Disease (2) Father, Paternal Grandfather Hyperlipidemia (1) Paternal Grandfather Hypertension (2) Father, Paternal Grandfather Loss (1) Father of Baby Relative: His mother had a stillborn daughter The family history is otherwise unremarkable for intellectual disability, congenital anomalies, recurrent loss, or known genetic conditions. Sisi is of [place], [place] African, Romansh, and AmericanIndian ancestry. Her partner, Kevin Merchant, is of Syriac and Maltese ancestry. Consanguinity is denied. Obstetric History T1 L1 SAB1 TAB0 Ectopic0 Multiple0 Live Births1 # Outcome Date GA Lbr Ankur/2nd Weight Sex Delivery Anes PTL Lv 5 Current 4 SAB 10/2015 7w0d 3 09/22/14 22w0d M Vag-Spont Y No-FD Complications: Abruptio Placenta,Subchorionic hematoma 2 Term 07/16/09 41w0d 3.515 kg (7 lb 12 oz) M CS-LTranv Spinal CHRISTOPH Name: Kip Complications: Breech presentation 1 TAB Patient's last menstrual period was 11/20/2016 (exact date). Estimated Date of Delivery: 08/27/2017 based on menstrual dating and confirmed by ultrasound. Screening Results Test Result ??? Cystic fibrosis carrier screen Negative for 97 mutations ??? Thalassemia screen MCV within normal limits (86.8 fL) Assessment 1. Maternal age: Advancing maternal age is associated with an increased rate of meiotic nondisjunction resulting in aneuploidy. We discussed the benefits, risks, and limitations of screening and diagnostic testing for aneuploidy. Sisi had cell-free DNA screening via the [place] [facility] in a previous ; she would like to have this test again and may consider diagnostic testing in the event of a positive screen. The [place] Test screens for trisomy 21, trisomy 18, and trisomy 13; screening for sex chromosome aneuploidy is optional. Sisi opted for the [place] Test with monosomy X screening. She requested to have the sex reported. Results are expected in 5-10 days. 2. Maternal serum AFP screening: Sisi had elevated levels of maternal serum AFP with two previouspregnancies. The first was unexplained, but the second was related to a large subchorionic hemorrhage and subsequent demise at 22 weeks. Maternal serum AFP is officially a screening test for openneural tube defects but may also indicate other defects and adverse outcomes. After discussing the benefits, risks, and limitations of this test, Sisi opted for maternal serum AFP screening. I gave her the lab requisition, and she can have a sample drawn for this test at 15-17 weeks. 3. Carrier screening: We discussed autosomal recessive inheritance and current professional society recommendations for carrier screening. ACOG and ACMG recommend offering population-based carrier screening for cystic fibrosis and spinal muscular atrophy. Sisi has had negative cystic fibrosis carrier screening in the past. We discussed the benefits, risks, and limitations of spinal muscular atrophy carrier screening. Sisi was leaning away from this testing at the time of our visit but plans togive it further consideration and discuss it with her partner. Plan [place] [facility] today. Maternal serum AFP screen at 15-17 weeks. I will call her when the results are available. documented in this encounter Plan of Treatment Not on filedocumented as of this encounter Procedures Procedure Name Priority Date/Time Associated Diagnosis Comme nts LAB SCAN 02/28/2017 12:00 AM Results for this EDT procedure are i n the results section . documented in this encounter Results Alpha Fetoprotein, Maternal (03/15/2017 10:12 AM EDT) [employer] Method Time Signature AFP Maternal See Scan OVIDIO TA Serum Report [facility] Comment: Test performed by [facility], [address] [place] [address] Specimen Anatomical Collection Method Collection Time Receive d Time (Source) Location / / Volume Laterality Blood specimen 03/15/2017 10:12 7 3:11 (specimen) AM EDT PM EDT Narrative This result has an attachment that is no t available. Resulting Agency Comment Spec In Lab Ashleigh Leach MD CHEMISTRY ORDERABLES Performing Organization Address City/State/ZIP Code Phon e Number [place] [id number] SCAN DOC: LAB (02/28/2017 12:00 AM EDT) Narrative 02/28/2017 12:00 AM EDT This result has an attachment that is no t available. Ordered by an unspecified provider. Scanning Provider MEDIA MGR SCAN EXT ORDR/RSLT Miscellaneous Lab request (02/12/2017 2:21 PM EDT) [employer] Method Time Signature Misc Lab Request OVIDIO TA Result received in [facility]. [facility] Specimen Anatomical Collection Method Collection Time Receive d Time (Source) Location / / Volume Laterality Blood specimen 02/12/2017 2:21 PM 017 3:05 (specimen) EDT PM EDT Resulting Agency Comment Spec In Lab Ashleigh Leach MD HEMATOLOGY ORDERABLES Performing Organization Address City/[facility]/[place] [address] documented in this encounter Visit Diagnoses Diagnosis Maternal age 35+, multigravida, first tr imester Encounter for genetic counseling Genetic counseling Encounter for screening of mot her Unspecified screening documented in this encounter Care Teams Director Oracle Database Relationship Specialty Start Date End Date Елена Coates MD PCP - General 08/29/10 [address] [place] [address] documented as of this encounter
--- OUTSIDE RECORDS SUMMARY | 2022-05-25 01:41 | XMS_ITS | Encounter Summary ---
:1975 Author Organization [facility] [place] [address] Care Team Providers Name Role Phone Елена Coates MD Primary Care Provider Reason for Visit Reason Comments Rupture of Membranes 0030 clear fluid Auth/Cert Specialty Diagnoses / Procedures Referred By Contact Refer red To Contact Diagnoses PROM (premature rupture of membranes) Procedures @ DELIVERY ([facility]) Referral ID Status Reason Start Date Expiration Date Visits Requ ested Visits Authorized [id number] 1 1 Encounter Details Date Type Department Care Team Description 08/26/2017 Surgery [facility] Amira Panchal MD @ DELIVERY [address] ([facility].13[facility] [place] [address] [place] [address] [phone] Social History Tobacco Use Types Packs/Day Years Used Date Former Smoker Cigarettes Quit: 10/07/19 Smokeless Tobacco: Never Used Alcohol Use Standard Drinks/Week Comments No 0 (1 standard drink = 0.6 oz pure alcoho l) Sex Assigned at Date Recorded Not on file documented as of this encounter Last Filed Vital Signs Vital Sign Reading Time Taken Comments Blood Pressure 133/93 08/28/2017 8:31 AM EST Pulse 98 08/28/2017 8:31 AM EST Temperature 36.9 ??C (98.4 ??F) 08/28/2017 8:31 AM EST Respiratory Rate 16 08/28/2017 8:31 AM EST Oxygen Saturation 100% 08/28/2017 8:31 AM EST Inhaled Oxygen Concentration - - Weight 60.8 kg (134 lb) 08/25/2017 6:02 AM EST Height 160.7 cm (5' 3.25) 08/25/2017 6:02 AM EST Body Mass Index 23.55 08/25/2017 6:02 AM EST documented in this encounter Discharge Summaries Jamshid Garcia MD - 08/28/2017 1:07 PM EST Images from the original note were not included. Discharge Summary Patient Name: Sisi Ruiz Patient Age: 41 y.o. Language: Anguill[place] Race: White Ethnicity: Not nor Admit date: 08/25/2017 Discharge date and time: 08/30/2017 8:49 AM Attending Physician: Betty att. providers found Discharge Physician: David Aleman MD Care Provider: Jonathan OB Follow-up Recommendations for Providers: -- Blood pressure check on POD#4 and POD#7 -- 6 week visit Inpatient Provider Contact Information: [facility] Department, Discharge Diagnoses (Hospital Problems) and Secondary Diagnoses (Chronic Problems) Active Hospital Problems Diagnosis ??? PROM (premature rupture of membranes) ??? Gestational hypertension, third trimester ??? Previous section ??? AMA (advanced maternal age) multigravida 35+ ??? Elevated blood pressure reading in office with white coat syndrome, without diagnosis of hypertension Resolved Hospital Problems Diagnosis Date Resolved No resolved problems to display. Active Non-Hospital Problems Diagnosis ??? CHO intolerance ??? Dermatofibroma ??? Telogen effluvium ??? Nevus Operations/Major Procedures: 08/27/2017: Repeat Low Transverse Section and lysis of adhesions Indication for Admission: Management of PROM History of Presentation: Sisi Ruiz is a 41 y.o. at 39w5d gestation being admitted for labor management. ?? HPI: Sisi had mild contractions yesterday evening on and off, was sleeping and woke up with largegush of clear fluid. ?? Her has been complicated by the followin. AMA - low risk [place] 2. Prior LTCS for arrest of descent in 2008 after IOL for late-term. 7 lb 12 oz baby. Per pt story, fully dilated, pushed for 10 minutes then recommended section ? Chorioamnionitis 3. 1 elevated BP at first visit 4. Prior 22 week IUFD due to abruption ?? Review of Systems- Negative to complete review except as noted in the HPI. ?? Obstetric Review of Systems Total Weight Gain this 9.843 kg (21 lb 11.2 oz) Movement: normal Contractions: irregular, every 3-6 minutes Leaking: clear fluid @ midnight, continued leaking Bleeding: some bloody show yesterday, no jeffery bleeding Preeclampsia signs and symptoms: None Hospital Course Including Delivery and Events [facility] after a 6 hour period of monitoring during which her contractions became less frequent, she was augmented with IV pitocin. She had slow labor progress and an intrauterine pressure catheter was placed for titration of pitocin. She remained 8cm dilated for five hours despite pitocin at 18mU. The decision was made to proceed with a section secondary to failure to dilate. She was taken to the OR and underwent a repeat low transverse section under epidural analgesia. This resulted in delivery of a liveborn female infant with Apgars of 8and 9, weighing 3670g. EBL was 500mL. There were no complications. For further details please see the operative report. Of note, during the intrapartum period, she was diagnosed with pre-eclampsia due to two elevated BPs> 4 hours apart and urine Pr/Cr of 0.3. PIH labs within normal limits. Her course was otherwise uneventful. Her blood pressures were intermittently elevated butnever severe. Her pain was well controlled with oral pain medications. She was tolerating a regular diet, was ambulating and voiding without difficulty, and was passing flatus. Her fundal exam was as expected, and her lochia was within normal limits. She was establishing of her . Patient planned condoms, vasectomy for contraception. She was discharged to home on POD#2 with plans for follow up in clinic as above. ?? She was discharged with 16 tablets of oxycodone. ? Due to her post-operative pain the patient was given a prescription for oxycodone 5 mg to take only for breakthrough pain not responsive to acetaminophen and ibuprofen. ??She was counseled regarding the dangers of these medications including sedation which would impair her ability to drive safely. ??The potential for addiction with continued use of narcotic was discussed and the need to stop use as soon as possible. ??It was recommended that she promptly destroy unused medication or take them back to drop box locations. ??The opioid risk assessment was done, opioid informed consent reviewed and signed by patient, PDMP query completed. ??Discharge instructions discussing the risk of opioids are included in her discharge instructions which are printed and given to the patient at discharge. Delivery Information Information for the patient's : Zev Ruiz [[id number]] INFORMATION Baby carlos Ruiz 08/26/2017 3:15 PM by Lower Segment Transverse Sex: female Gestational Age: 39w6d [place] Measurements: Weight: 8 lb 1.5 oz (3670 g) APGARS One Minute Five Minutes Ten Minutes Totals: 8 9 EBL: 500 mL Vital signs at Discharge: BP: (!) 133/93, Heart Rate: 98, Temp: 36.9 ??C (98.4 ??F), Resp: 16, BMI (Calculated): 23.55 Height: 160.7 cm (5' 3.25) (08/25/17601) Weight - Scale: 60.8 kg (134 lb) (08/25/17601) Functional and Cognitive status: Fully functional and cognitively intact Important Studies and Lab Data: No results found for this or any previous visit (from the past 72 hour(s)). Studies: None Pending Studies and Lab Data: Final surgical pathology Discharge Conditions/Prognosis: good Discharge to: Home Contraceptive Plans: condoms and vasectomy Allergies at Discharge: Allergies Allergen Reactions ??? Aleve [Naproxen Sodium] Anaphylaxis Immunizations Given this Hospitalization: There is no immunization history on file for this patient. Discharge Medications: Your Medications New Medications Dose Details oxyCODONE 5 mg Tab Commonly known as: ROXICODONE Take 1 tablet by mouth every 4 hours as needed for Pain (Severe pain (7-10)). 5 mg Quantity: 16 tablet Refills: 0 Continued medications, unchanged Dose Details acetaminophen 325 mg Tab Commonly known as: TYLENOL Take 325-650 mg by mouth. 325-650 mg Refills: 0 vitamin with [id number] Tab Take by mouth. Refills: 0 Smoking Status at Discharge: History Smoking Status ??? Former Smoker ??? Types: Cigarettes ??? Quit date: 10/07/1999 Smokeless Tobacco ??? Never Used Instructions Given to Patient at Discharge: Patient Instructions Patient Instructions Follow-up: Blood pressure check tomorrow (Thursday 08/30) and 7 days (09/02/2017). Six week visit with care provider Activity: Nothing in vagina until bleeding stops Do not lift more than 15 pounds No driving for two weeks if you had a section or if you are taking narcotic medication. Please call your OB provider for the following: Fever more than 100.5 degrees Heavy bleeding that saturates a pad an hour Increased abdominal pain, nausea, shaking chills Redness, increased pain, discharge at incision if you had a delivery. Increased pain in the area of stitches outside your vagina. Hot, hard, tender areas on the breast and feeling generally unwell. Depression Contact Numbers: If you see an tobacco stripper hand call: [phone] 9 am - 5 pm, after 5 pm If you see a foot miter operator call: [phone] all hours If you see a family practitioner call: [phone] all hours If you were transferred to our institution for delivery and cannot reach your local OB provider, call the tobacco stripper hand numbers. General Instructions Nursing Inpatient Progress C - Section Follow-up Follow-ups: 6 week post appointment Maternal Discharge Instructions Rest: Although it may seem impossible to get enough rest, simple planning will help. Try to get at least one four hour block of uninterrupted sleep in 24 hours; then plan to rest, and/or sleep when your baby does. Limiting visitors also helps. Fathers and other family members can help by doing housework, caring for other children and/or helping limit visitors. Activity: After delivery, it is safe to climb stairs at home. Do not lift anything heavier than your baby for two weeks. Do not drive for two weeks or while taking pain medicine that contains a narcotic as your reaction time may be decreased. Nutrition: Your diet following the of your baby is as important as it was before the baby was born. Drink a minimum of 6-8 glasses a day. Do not attempt to lose weight during the first six weeks.Continue taking your vitamins until they are gone. Lochia: (Flow) Your flow should be no heavier than a normal period. It will be bright red for 2-3 days and then pinkish and finally colorless. If your flow becomes bright red again, decrease your activity. Do not use tampons until your care provider advises you it is OK. Incision: Wash the incision with soap and water and pat dry. It is normal to have clear or pinkish fluid seep from the incision. Gauze pads or sanitary napkins may help to keep the incision dry if it is located in a fold under your tummy. If the incision has more redness, yellow drainage, or becomes more painful, contact the obstetrics clinic. Breast Care for Formula feeding mothers: Wear a well fitting bra to support your breasts. Ice packs to your breasts and Tylenol or Ibuprofen may be used to relieve discomfort from engorgement. Avoid stimulating your breasts: Do not let warm water from the shower fall on them; avoid holding your baby near your breasts until your milk begins to decrease and engorgement is relieved. Breast feeding mothers: Practice careful positioning and frequent feeding as demonstrated in the hospital. The printed information in your packet covers this in detail. Call your doctor or foot miter operator for: ??? Fever more than 100.5 ??? Heavy bleeding that saturates a pad an hour ??? Clots larger than a plum ??? Increased abdominal pain, nausea, shaking chills ??? Increased redness or soreness over your incision Breast with hot, hard, tender areas on the breast plus flu-like symptom ??? depression occurs in a large percentage of women. We encourage you to contact your provider or a member of the nursing staff if you are feeling so overwhelmed that you are unable to care for yourself or your baby. Keep your follow up appointment. [facility] at any time for guidance or for answers to questions that come up prior to you follow up appointment. Your [facility] Provider can be reached during office hours at ??? Midwives ??? Obstetricians ??? Birthing Ward Follow-up Clinic AFTER OFFICE HOURS for the tobacco stripper hand or foot miter operator telephone recorder Provider electronic signature confirms that discharge instructions were reviewed with the patient. Acopy was printed and given to the patient. Future Appointments and Orders Future Orders Complete By Expires Follow-up [BHT787 Custom] As directed Process Instructions: Scheduling Instructions: Comments: - gestational diabetic counseling with breastfeeding educator at the time of the visit if there is a diagnosis of gestational diabetes. Questions: Discharge References/Attachments None documented in this encounter Discharge Instructions Discharge InstructionsLedy Mauro RN - 08/28/2017 11:44 AM EST Nursing Inpatient Progress C - Section Follow-up Follow-ups: 6 week post appointment Maternal Discharge Instructions Rest: Although it may seem impossible to get enough rest, simple planning will help. Try to get at least one four hour block of uninterrupted sleep in 24 hours; then plan to rest, and/or sleep when your baby does. Limiting visitors also helps. Fathers and other family members can help by doing housework, caring for other children and/or helping limit visitors. Activity: After delivery, it is safe to climb stairs at home. Do not lift anything heavier than your baby for two weeks. Do not drive for two weeks or while taking pain medicine that contains a narcotic as your reaction time may be decreased. Nutrition: Your diet following the of your baby is as important as it was before the baby was born. Drink a minimum of 6-8 glasses a day. Do not attempt to lose weight during the first six weeks.Continue taking your vitamins until they are gone. Lochia: (Flow) Your flow should be no heavier than a normal period. It will be bright red for 2-3 days and then pinkish and finally colorless. If your flow becomes bright red again, decrease your activity. Do not use tampons until your care provider advises you it is OK. Incision: Wash the incision with soap and water and pat dry. It is normal to have clear or pinkish fluid seep from the incision. Gauze pads or sanitary napkins may help to keep the incision dry if it is located in a fold under your tummy. If the incision has more redness, yellow drainage, or becomes more painful, contact the obstetrics clinic. Breast Care for Formula feeding mothers: Wear a well fitting bra to support your breasts. Ice packs to your breasts and Tylenol or Ibuprofen may be used to relieve discomfort from engorgement. Avoid stimulating your breasts: Do not let warm water from the shower fall on them; avoid holding your baby near your breasts until your milk begins to decrease and engorgement is relieved. Breast feeding mothers: Practice careful positioning and frequent feeding as demonstrated in the hospital. The printed information in your packet covers this in detail. Call your doctor or foot miter operator for: ??? Fever more than 100.5 ??? Heavy bleeding that saturates a pad an hour ??? Clots larger than a plum ??? Increased abdominal pain, nausea, shaking chills ??? Increased redness or soreness over your incision Breast with hot, hard, tender areas on the breast plus flu-like symptom ??? depression occurs in a large percentage of women. We encourage you to contact your provider or a member of the nursing staff if you are feeling so overwhelmed that you are unable to care for yourself or your baby. Keep your follow up appointment. You may call the [facility] at any time for guidance or for answers to questions that come up prior to you follow up appointment. Your [facility] Provider can be reached during office hours at ??? Midwives ??? Obstetricians ??? [facility] Follow-up Clinic AFTER OFFICE HOURS for the tobacco stripper hand or foot miter operator telephone recorder Provider electronic signature confirms that discharge instructions were reviewed with the patient. Acopy was printed and given to the patient. AH Patient Marlys Hdez MD - 08/28/2017 8:28 AM EST Images from the original note were not included. Patient Instructions Follow-up: Blood pressure check tomorrow (Thursday 08/30) and 7 days (09/02/2017). Six week visit with care provider Activity: Nothing in vagina until bleeding stops Do not lift more than 15 pounds No driving for two weeks if you had a section or if you are taking narcotic medication. Please call your OB provider for the following: Fever more than 100.5 degrees Heavy bleeding that saturates a pad an hour Increased abdominal pain, nausea, shaking chills Redness, increased pain, discharge at incision if you had a delivery. Increased pain in the area of stitches outside your vagina. Hot, hard, tender areas on the breast and feeling generally unwell. Depression Contact Numbers: If you see an tobacco stripper hand call: [phone] 9 am - 5 pm, after 5 pm If you see a foot miter operator call: [phone] all hours If you see a family practitioner call: [phone] all hours If you were transferred to our institution for delivery and cannot reach your local OB provider, call the tobacco stripper hand numbers. documented in this encounter Medications at Time of Discharge Medication Sig Dispensed Refills Start Date End Date oxyCODONE (ROXICODONE) 5 Take 1 tablet by 16 tablet 0 08/2810/09/2017 mg Tablet mouth every 4 hours as needed for Pain (Severe pain (7-10)). acetaminophen (TYLENOL) Take 325-650 mg by 0 09/0610/09/2017 325 mg Tablet mouth. Take by mouth. 0 05/22/2019 [id number] Tablet documented as of this encounter Progress Notes Ledy Mauro RN - 08/28/2017 12:06 PM EST 08/28/17 1205 - Reviewed d/c instructions with patient and all questions answered. Prescriptions called to [facility] pharmacy for pt upon d/c. Follow up appts reviewed with pt as well. Kat West - 08/28/2017 6:22 AM EST Delivery Note Information for the patient's : Joseph, Baby girl [[id number]] Delivery Date and Time:08/26/2017 3:15 PM Delivery Type: Lower Segment Transverse ID/CC: Sisi Ruiz is a 41 y.o. who is POD#2 s/p repeat section at 39w6d in the setting of failure to progress during TOLAC. EBL 500 mL. Subjective: Complains of nothing. Pain is wellcontrolled. She is tolerating diet well, She is voiding and ambulating. Denies lightheadedness, nausea, headaches, RUQ pain, visual changes. Review of Systems Lochia: moderate Last Set of Vitals: Most Recent Vitals: 08/28/17 0107 BP: 141/86 Pulse: 97 Resp: 16 Temp: 36.8 ??C (98.2 ??F) SpO2: Weight - Scale: 60.8 kg (134 lb) Physical Exam Gen: laying in bed infant, NAD CV: rrr, no m/r/g Pulm: CTAB Uterine Fundus: firm, non-tender and 2 cm below umbilicus Dressing: clean, dry and intact removed Incision steristrips in the place, no erythema or drainage Lochia: appropriate Significant Labs: Lab Results Component Value Date ABORH A Pos 02/12/2017 WBC 13.9 (H) 08/27/2017 HCT 33.2 (L) 08/27/2017 HGB 12.1 08/27/2017 RUBLIGG Positive 02/12/2017 Recent Labs 08/27/17 0200 PLATELET 121* Recent Labs 08/25/17 1515 08/25/17 0500 AST 18 19 Lab Results Component Value Date CREATININE 0.64 (L) 08/25/2017 Assessment & Plan 41 y.o. female, POD#2 s/p repeat section following failed TOLAC. Hgb 13.6 --> 12.1, appropriate for EBL. was complicated by hx of section, AMA, gestational hypertension --> preeclampsia. ?? Patient is doing well without problems. ??? Infant nutrition: breast ??? Contraception: condoms then vasectomy ??? care: routine 6 week check, PPD#3 and #7 BP check Assessment Management of Additional Medical Issues ?? Pre-eclampsia without severe features: admission urine protein:creatinine 0.3, BPs elevated but non-severe for past 24 hours, no sustained severe-range BPs. HELLP labs wnl, platelets downtrending but >100. No severe symptoms, will continue to monitor clinically. Dispo - DC today This patient was seen and discussed on rounds. KAT WEST MD, PGY-3 08/28/2017 Associated attestation - David Aleman MD - 08/28/2017 9:55 AM EST I saw the patient, discussed her care with the resident team on daily rounds, and agree with the assessment and plan as documented. David Aleman MD 08/28/2017 9:55 AM Helen Dos Santos RN - 08/27/2017 2:15 PM EST OFFICE OF CARE MANAGEMENT/lecturer of portuguese Mother given Medela Pump in style breast pump from [facility]. Pump covered by insurance. Helen Dos Santos RN CM Marlys Farrar MD - 08/27/2017 9:44 AM EST Delivery Note Information for the patient's : Joseph, Baby girl [[id number]] Delivery Date and Time:08/26/2017 3:15 PM Delivery Type: ID/CC: Sisi Ruiz is a 41 y.o. who is POD#1 s/p repeat section at 39w6d in the setting of failure to progress during TOLAC. EBL 500 mL. Subjective: Complains of nothing. Pain is wellcontrolled. She is tolerating diet well, Salomon remainsin place, has not yet ambulated. Denies lightheadedness, nausea, headaches, RUQ pain, visual changes. Review of Systems Lochia: moderate Last Set of Vitals: Most Recent Vitals: 08/26/17 1701 BP: (!) 146/93 Pulse: 95 Resp: Temp: SpO2: Weight - Scale: 60.8 kg (134 lb) Physical Exam Gen: laying in bed infant, NAD CV: rrr, no m/r/g Pulm: CTAB Uterine Fundus: firm, non-tender and 2 cm below umbilicus Dressing: clean, dry and intact Lochia: appropriate Significant Labs: Lab Results Component Value Date ABORH A Pos 02/12/2017 WBC 13.8 (H) 08/26/2017 HCT 36.2 08/26/2017 HGB 13.6 08/26/2017 RUBLIGG Positive 02/12/2017 Recent Labs 08/27/17 0200 PLATELET 121* Recent Labs 08/25/17 1515 08/25/17 0500 AST 18 19 Lab Results Component Value Date CREATININE 0.64 (L) 08/25/2017 Assessment & Plan 41 y.o. female, POD#1 s/p repeat section following failed TOLAC. Hgb 13.6 --> 12.1, appropriate for EBL. was complicated by hx of section, AMA, gestational hypertension. ?? Patient is doing well without problems. ??? Infant nutrition: breast ??? Contraception: undecided, discussing with partner ??? care: routine 6 week check ??? Assessment Management of Additional Medical Issues ?? Pre-eclampsia without severe features: admission urine protein:creatinine 0.3, BPs largely wnl for past 24 hours, no sustained severe-range BPs. HELLP labs wnl though platelets downtrending, 155 on admission --> 121 today. No severe symptoms, will continue to monitor clinically. This patient was seen and discussed on rounds. Marlys Farrar MD, PGY-1 08/26/2017 Associated attestation - Amira Palmer MD - 08/27/2017 2:25 PM EST I have seen the patient and reviewed the resident's above note and I agree with the details as written. The assessment and plan were formulated in discussion with me and I agree with them as documented. Pt is feeling well S/P rLTCS after failed TOLAC POD #1. Abd is S & D with dry bandage in place, uterus firm, NT, minimal lochia. Will continue PP care. MD Nydia García Ella A - 08/26/2017 2:10 PM EST Labor Progress Note ID/CC: Sisi Ruiz is a 41 y.o. at 39w6d gestation admitted for labor management with desired TOLAC; recent diagnosis of gHTN. Her has been complicated by AMA, hx CS for arrest of descent, asthma, and prior 22w IUFD due to placental abruption. Subjective: The patient is tolerating labor well. Comfortable with epidural. Objective: Temp: 36.9 ??C (98.4 ??F) 24 hr Temp: [36.4 ??C (97.5 ??F)-37.5 ??C (99.5 ??F)] Heart Rate: 98 24 hr Heart Rate: [67-118] BP: 127/87 24 hr BP: (101-146)/(61-87) Cervix Exam: Dilation: 8 (08/26/17 1350) unchanged since 929 Effacement: 100 Station: -1 Cervical Position: Posterior Consistency: Soft Osorio Score: 9 OB Examiner: Kat West Heart Rate Interpretation: FHT: Baseline 130, moderate variability, + accels, no decels [place]: q2 Pitocin: now off Urine protein:creatinine: 0.3 GBS Lab Results Component Value Date GBSSCREEN Neg 08/02/2017 Assessment & Plan Sisi Ruiz is a 41 y.o. at 39w6d gestation being admitted for labor management with desired TOLAC; recent diagnosis of gHTN. Her has been complicated by AMA, hx CS for arrest of descent, asthma, and prior 22w IUFD due to placental abruption. ?? Labor state: unchanged in active labor since 929 without descent of the station. Will proceed with rCS for failure to dilate. She has already signed surgical consent. ?? Labor plans: S/p SROM for clear fluid 08/25 at 00:30 hrs. Pitocin off and will proceed with CS. ?? Pain management: Epidural ?? well being: Category I ?? GBS management: None Required Additional Issues ?? Gestational HTN --> Pre-eclampsia: gHTN diagnosed 08/25 with elevated BP > 4 hours apart. PIH labs within normal limits. Urine Pr/Cr this morning 0.3. Recent BPs wnl. Avoid methergine. ?? Asthma: avoid Hemabate in the case of hemorrhage. KAT WEST MD PGY-3 08/26/2017 Associated attestation - Amira Palmer MD - 08/26/2017 5:09 PM EST I have seen the patient and reviewed the resident's above note and I agree with the details as written. The assessment and plan were formulated in discussion with me and I agree with them as documented. Pt has had no progress of labor, FHT Cat 1. Failed TOLAC, FTP was discussed with pt and C/S was recommended. Pt agreed. Plan: C/S MD Charan García, Marlys Worley MD - 08/26/2017 11:55 AM EST Labor Progress Note ID/CC: Sisi Ruiz is a 41 y.o. at 39w6d gestation admitted for labor management with desired TOLAC; recent diagnosis of gHTN. Her has been complicated by AMA, hx CS for arrest of descent, asthma, and prior 22w IUFD due to placental abruption. Subjective: The patient is tolerating labor well. She is using an epidural for pain control and has been sleeping between cervical exams. Objective: Temp: 36.9 ??C (98.4 ??F) 24 hr Temp: [36.4 ??C (97.5 ??F)-37.5 ??C (99.5 ??F)] Heart Rate: 91 24 hr Heart Rate: [67-118] BP: 122/87 24 hr BP: (101-146)/(61-87) Cervix Exam: Dilation: 8 (08/26/17 1144) Effacement: 100 Station: -1 Cervical Position: Posterior Consistency: Soft Osorio Score: 9 OB Examiner: Marlys Farrar Heart Rate Interpretation: FHT: Baseline 135, moderate variability, + accels, no decels [place]: q2-5 minutes, MVUs 200+/10 minutes Pitocin: running at 18mL/hr Urine protein:creatinine: 0.3 GBS Lab Results Component Value Date GBSSCREEN Neg 08/02/2017 Assessment & Plan Sisi Ruiz is a 41 y.o. at 39w6d gestation being admitted for labor management with desired TOLAC; recent diagnosis of gHTN. Her has been complicated by AMA, hx CS for arrest of descent, asthma, and prior 22w IUFD due to placental abruption. ?? Labor state: Active phase labor but making slow cervical change ?? Labor plans: S/p SROM for clear fluid 08/25 at 00:30 hrs. Pitocin started 08/25 at 06:51 hrs. Continue present management, increasing Pitocin PRN to maintain adequate contraction strength and frequency; recheck in 2 hours, sooner PRN ?? Pain management: Epidural ?? well being: Category I ?? GBS management: None Required Additional Issues ?? Gestational HTN --> Pre-eclampsia: gHTN diagnosed 08/25 with elevated BP > 4 hours apart. PIH labs within normal limits. Urine Pr/Cr this morning 0.3. Recent BPs wnl. ?? Asthma: avoid Hemabate in the case of hemorrhage. Marlys Farrar MD PGY-1 08/26/2017 Marlys Farrar MD - 08/26/2017 9:35 AM EST Labor Progress Note ID/CC: Sisi Ruiz is a 41 y.o. at 39w6d gestation admitted for labor management with desired TOLAC; recent diagnosis of gHTN. Her has been complicated by AMA, hx CS for arrest of descent, asthma, and prior 22w IUFD due to placental abruption. Subjective: The patient is tolerating labor well. She reports increased rectal pressure. She is using an epidural for pain control and continues to feel very comfortable and grateful for being able to rest. Objective: Temp: 36.9 ??C (98.4 ??F) 24 hr Temp: [36.4 ??C (97.5 ??F)-37.5 ??C (99.5 ??F)] Heart Rate: 81 24 hr Heart Rate: [67-118] BP: 125/75 24 hr BP: (101-146)/(61-87) Cervix Exam: Dilation: 7 (08/26/17 0935) Effacement: 100 Station: -1 Cervical Position: Posterior Consistency: Soft Osorio Score: 9 OB Examiner: Marlys Farrar Heart Rate Interpretation: FHT: Baseline 135, moderate variability, + accels, rare early decels [place]: q2-5 minutes, MVUs 200+/10 minutes Pitocin: running at 16mL/hr Urine protein:creatinine: 0.3 GBS Lab Results Component Value Date GBSSCREEN Neg 08/02/2017 Assessment & Plan Sisi Ruiz is a 41 y.o. at 39w6d gestation being admitted for labor management with desired TOLAC; recent diagnosis of gHTN. Her has been complicated by AMA, hx CS for arrest of descent, asthma, and prior 22w IUFD due to placental abruption. ?? Labor state: Active phase labor ?? Labor plans: S/p SROM for clear fluid 08/25 at 00:30 hrs. Pitocin started 08/25 at 06:51 hrs. Continue present management, increasing Pitocin PRN to maintain adequate contraction strength and frequency; recheck in 2 hours, sooner PRN ?? Pain management: Epidural ?? well being: Category I ?? GBS management: None Required Additional Issues ?? Gestational HTN --> Pre-eclampsia: gHTN diagnosed 08/25 with elevated BP > 4 hours apart. PIH labs within normal limits. Urine Pr/Cr this morning 0.3. Recent BPs wnl. ?? Asthma: avoid Hemabate in the case of hemorrhage. Marlys Farrar MD PGY-1 08/26/2017 Marlys Gracia MD - 08/26/2017 8:15 AM EST Labor Progress Note ID/CC: Sisi Ruiz is a 41 y.o. at 39w6d gestation admitted for labor management with desired TOLAC; recent diagnosis of gHTN. Her has been complicated by AMA, hx CS for arrest of descent, asthma, and prior 22w IUFD due to placental abruption. Subjective: The patient is tolerating labor well. She is using an epidural for pain control and continues to feel very comfortable and grateful for being able to rest. Objective: Temp: 36.4 ??C (97.5 ??F) 24 hr Temp: [36.4 ??C (97.5 ??F)-37.5 ??C (99.5 ??F)] Heart Rate: 82 24 hr Heart Rate: [67-118] BP: 116/76 24 hr BP: (101-146)/(61-89) Cervix Exam: Dilation: 7 (08/26/17 0809) Effacement: 100 Station: -1 Cervical Position: Posterior Consistency: Soft Osorio Score: 9 OB Examiner: Marlys Farrar Heart Rate Interpretation: FHT: Baseline 135, moderate variability, + accels, rare early decels [place]: q2-3 minutes, MVUs 200+/10 minutes Pitocin: running at 16mL/hr Urine protein:creatinine: 0.3 GBS Lab Results Component Value Date GBSSCREEN Neg 08/02/2017 Assessment & Plan Sisi Ruiz is a 41 y.o. at 39w6d gestation being admitted for labor management with desired TOLAC; recent diagnosis of gHTN. Her has been complicated by AMA, hx CS for arrest of descent, asthma, and prior 22w IUFD due to placental abruption. ?? Labor state: Transitioning to active labor now that contractions are adequate ?? Labor plans: S/p SROM for clear fluid 08/25 at 00:30 hrs. Pitocin started 08/25 at 06:51 hrs. Continue present management, increasing Pitocin PRN to maintain adequate contraction strength and frequency; recheck in 2 hours, sooner PRN ?? Pain management: S/p fentanyl and morphine/phenergan. Now with epidural. ?? well being: Category I ?? GBS management: None Required Additional Issues ?? Gestational HTN --> Pre-eclampsia: gHTN diagnosed 08/25 with elevated BP > 4 hours apart. PIH labs within normal limits. Urine Pr/Cr this morning 0.3. Recent BPs wnl. ?? Asthma: avoid Hemabate in the case of hemorrhage. Marlys Farrar MD PGY-1 08/26/2017 Associated attestation - Amira Palmer MD - 08/26/2017 11:48 AM EST I have seen the patient and reviewed the resident's above note and I agree with the details as written. The assessment and plan were formulated in discussion with me and I agree with them as documented. MD Kareem García Valerie J - 08/26/2017 4:09 AM EST Labor Progress Note ID/CC: Sisi Ruiz is a 41 y.o. at 39w5d gestation being admitted for labor management with desired TOLAC; recent diagnosis of gHTN. Her has been complicated by AMA, hx CS for arrest of descent, asthma, and prior 22w IUFD due to placental abruption. Subjective: The patient is tolerating labor well. She is using an epidural for pain control and is feeling much more comfortable. Objective: Temp: 37 ??C (98.6 ??F) 24 hr Temp: [36.9 ??C (98.4 ??F)-37.1 ??C (98.8 ??F)] Heart Rate: 69 24 hr Heart Rate: [67-118] BP: 122/68 24 hr BP: (104-146)/(61-93) Cervix Exam: Dilation: 5 (08/26/17 0400): IUPC placed Effacement: 100 Station: -1 Cervical Position: Posterior Consistency: Soft Osorio Score: 9 OB Examiner: Valant Heart Rate Interpretation: FHT: Baseline 135, moderate variability, + accels, no decels [place]: dfficult to trace, q3-5 minutes Pitocin: running at 8mL/hr GBS Lab Results Component Value Date GBSSCREEN Neg 08/02/2017 Assessment & Plan Sisi Ruiz is a 41 y.o. at 39w5d gestation being admitted for labor management with desired TOLAC; recent diagnosis of gHTN. Her has been complicated by AMA, hx CS for arrest of descent, asthma, and prior 22w IUFD due to placental abruption. ?? Labor state: Early latent labor. ?? Labor plans: S/p SROM for clear fluid 08/25 at 00:30 hrs. Pitocin started 08/25 at 06:51 hrs. Cervical exam slightly more effaced with station further descended. IUPC placed to monitor contraction MVUs. Discussed with patient the possibility of a section if she fails to make cervical change control coordinator the next 4 hours. She is in agreement with this plan. At this time, will continue pitocin per protocol with plans to recheck in 4 hours or as clinically indicated. ?? Pain management: S/p fentanyl and morphine/phenergan. Using an epidural. ?? well being: Category I ?? GBS management: None Required Additional Issues ?? Gestational HTN: Diagnosed 08/25 with elevated BP > 4 hours apart. PIH labs within normal limits. Urine Pr/Cr pending. ?? Asthma: avoid Hemabate in the case of hemorrhage. Dasia Serna MD PGY-1 08/26/2017 Associated attestation - Kimberly Cobos MD - 08/26/2017 5:59 AM EST heart tracing and labor progress reviewed with resident. heart tracing has been category 1. However, only modest progress between 11pm and 4 am. Patient had IUPC placed in an attempt to guide oxytocin use and achieve adequate labor. Will continue to increase oxytocin for now. If there is lack of progress despite augmentation, then may need to consider repeat . MD Kareem LINDSEY Valerie J - 08/25/2017 11:30 PM EST Labor Progress Note ID/CC: Sisi Ruiz is a 41 y.o. at 39w5d gestation being admitted for labor management with desired TOLAC; recent diagnosis of gHTN. Her has been complicated by AMA, hx CS for arrest of descent, asthma, and prior 22w IUFD due to placental abruption. Subjective: The patient is tolerating labor well. She had moderate relief with morphing/phenergan, but states that contractions still feel painful. She continues to breath through them and is using the birthing ball. Desires epidural at this time. Objective: Temp: 37 ??C (98.6 ??F) 24 hr Temp: [36.9 ??C (98.4 ??F)-37.1 ??C (98.8 ??F)] Heart Rate: 75 24 hr Heart Rate: [75-98] BP: 132/76 24 hr BP: (128-144)/(72-93) Cervix Exam: Dilation: 5 (08/25/17 2331) Effacement: 90 Station: -2 Cervical Position: Posterior Consistency: Soft Osorio Score: 9 OB Examiner: Valant Heart Rate Interpretation: FHT: Baseline 130, moderate variability, + accels, no decels [place]: q3 minutes Pitocin: running at 8mL/hr GBS Lab Results Component Value Date GBSSCREEN Neg 08/02/2017 Assessment & Plan Sisi Ruiz is a 41 y.o. at 39w5d gestation being admitted for labor management with desired TOLAC; recent diagnosis of gHTN. Her has been complicated by AMA, hx CS for arrest of descent, asthma, and prior 22w IUFD due to placental abruption. ?? Labor state: Early latent labor. ?? Labor plans: S/p SROM for clear fluid 08/25 at 00:30 hrs. Pitocin started 08/25 at 06:51 hrs. 1cmcervical change since last exam. Continue pitocin per protocol with plans to recheck in 4 hours or as clinically indicated. ?? Pain management: S/p fentanyl and morphine/phenergan. Will consult anesthesia now for epidrual ?? well being: Category I ?? GBS management: None Required Additional Issues ?? Gestational HTN: Diagnosed 08/25 with elevated BP > 4 hours apart. PIH labs within normal limits. Plan for urine Pr/Cr with epidural. ?? Asthma: avoid Hemabate in the case of hemorrhage. Dasia Serna MD PGY-1 08/25/2017 Associated attestation - Kimberly Cobos MD - 08/25/2017 11:44 PM EST heart tracing reviewed and remains category 1. Labor progress and plan of care discussed with resident. Agree with plan for epidural for labor analgesia and continuation of oxytocin for labor progress. MD Kareem LINDSEY Valerie J - 08/25/2017 7:26 PM EST Labor Progress Note ID: Sisi Ruiz is a 41 y.o. at 39w5d gestation being admitted for labor management with desired TOLAC; recent diagnosis of gHTN. Her has been complicated by AMA, hx CS for arrest of descent, asthma, and prior 22w IUFD due to placental abruption. Subjective: The patient is tolerating labor well. Reporting contractions are more intense but she remains comfortable. She has been using fentanyl for pain management but would like something longer lasting. Objective: Temp: 37.1 ??C (98.8 ??F) 24 hr Temp: [36.9 ??C (98.4 ??F)-37.1 ??C (98.8 ??F)] Heart Rate: 95 24 hr Heart Rate: [76-98] BP: 134/72 24 hr BP: (128-144)/(72-93) Cervix Exam: Dilation: 4.5 (08/25/17 1910) Effacement: 80 Station: -2 Cervical Position: Posterior Consistency: Soft Osorio Score: 7 OB Examiner: Valant Heart Rate Interpretation: FHT: Baseline 135, moderate variability, + accels, no decels [place]: q3 minutes Pitocin: running at 6mL/hr GBS Lab Results Component Value Date GBSSCREEN Neg 08/02/2017 Assessment & Plan Sisi Ruiz is a 41 y.o. at 39w5d gestation being admitted for labor management with desired TOLAC; recent diagnosis of gHTN. Her has been complicated by AMA, hx CS for arrest of descent, asthma, and prior 22w IUFD due to placental abruption. ?? Labor state: Early latent labor. ?? Labor plans: S/p SROM for clear fluid 08/25 at 00:30 hrs. Pitocin started 08/25 at 06:51 hrs. Limited cervical change on this exam. Continue pitocin per protocol with plans to recheck in 4 hours or as clinically indicated. ?? Pain management: S/p fentanyl x3. Ordered for morphine/phenergan now. ?? well being: Category I ?? GBS management: None Required Additional Issues ?? Gestational HTN: Diagnosed 08/25 with elevated BP > 14 hours apart. PIH labs within normal limits. Plan for urine Pr/Cr with epidural. ?? Asthma: avoid Hemabate in the case of hemorrhage. Dasia Serna MD PGY-1 08/25/2017 Associated attestation - Kimberly Cobos MD - 08/25/2017 8:35 PM EST Patient seen and evaluated with resident. Chart reviewed. heart tracing is currently category 1. Agree with plan for longer acting pain medication since patient remains in latent phase. Agree with plan to continue oxytocin and monitor for labor progress. MD Libertad LINDSEY Carleigh B, - 08/25/2017 1:36 PM EST Labor Progress Note ID: Sisi Ruiz is a 41 y.o. at 39w5d gestation being admitted for labor management with desired TOLAC. Her has been complicated by AMA , hx CS for arrest of descent, and prior 22wIUFD due to placental abruption. Interval events: -- 2 SBPs > 140 > 4 hours apart meeting criteria for gHTN. Subjective: The patient is tolerating labor well. Reporting contractions are more intense but she remains comfortable. Using nothing for pain management at this time. Objective: Temp: 36.9 ??C (98.4 ??F) 24 hr Temp: [36.9 ??C (98.4 ??F)-37.1 ??C (98.8 ??F)] Heart Rate: 76 24 hr Heart Rate: [76-98] BP: 141/83 24 hr BP: (128-144)/(77-93) Cervix Exam: Dilation: 4 (08/25/17 1334) Effacement: 75 Station: -2 Consistency: Soft Position: Posterior Osorio Score: OB Examiner: Giselle Maurer DO Heart Rate Interpretation: FHT: Baseline 125, moderate variability, + accels, no decels [place]: q2 mins GBS Lab Results Component Value Date GBSSCREEN Neg 08/02/2017 Assessment & Plan Sisi Ruiz is a 41 y.o. at 39w5d gestation being admitted for labor management with desired TOLAC. Her has been complicated by AMA , hx CS for arrest of descent, and prior 22w IUFD due to placental abruption. Labor Assessment: Early latent labor, s/p SROM for clear fluid. Progression from last check 4 hours ago 3-->4cm dilation. ?? Labor Plans: Continue IV pitocin, currently at 6. Will re-evaluate in 4 hours or sooner as needed. ?? GBS Management: None Required Additional Issues ?? Gestational HTN: Elevated BP at NOB visit to 139/93, baseline Pre-eclampsia labs WNL. BPs 140s/80s persistently today. Will repeat PIH labs at this time and continue to monitor BP. Katarzyna Maurer DO 08/25/2017 Associated attestation - Ashleigh Leach MD - 08/25/2017 3:19 PM EST Attending note I have personally reviewed the patient's progress in labor and agree with Dr. Maurer's assessment and plan as documented. MD Libertad Sutton Carleigh B, DO - 08/25/2017 9:41 AM EST Labor Progress Note ID: Sisi Ruiz is a 41 y.o. at 39w5d gestation being admitted for labor management with desired TOLAC. Her has been complicated by AMA , hx CS for arrest of descent, and prior 22wIUFD due to placental abruption. Subjective: The patient is tolerating labor well. Reports contractions are uncomfortable but she does not feel she needs pain intervention at this time. Thinking eventually she would like an epidural. Objective: Temp: 37 ??C (98.6 ??F) 24 hr Temp: [36.9 ??C (98.4 ??F)-37.1 ??C (98.8 ??F)] Heart Rate: 95 24 hr Heart Rate: [90-97] BP: 132/89 24 hr BP: (128-140)/(81-93) Cervix Exam: Dilation: 3 (08/25/17 0935) Effacement: 50 Station: -3 Consistency: Mid Position: Posterior Osorio Score: 4 OB Examiner: Giselle Maurer DO Heart Rate Interpretation: FHT: Baseline 125, moderate variability, + accels, no decels [place]: q3 mins GBS Lab Results Component Value Date GBSSCREEN Neg 08/02/2017 Assessment & Plan Sisi Ruiz is a 41 y.o. at 39w5d gestation being admitted for labor management with desired TOLAC. Her has been complicated by AMA , hx CS for arrest of descent, and prior 22w IUFD due to placental abruption. Labor Assessment: Early latent labor, s/p SROM for clear fluid. Progression from last check 4 hours ago 2-->3cm dilation. ?? Labor Plans: Continue to titrate IV pitocin as able. Will re-evaluate in 4 hours or sooner as needed. ?? GBS Management: None Required Additional Issues ?? Elevated BP: Elevated BP at NOB visit to 139/93, baseline Pre-eclampsia labs WNL. On arrival elevated BP x 2 to 130s-140s/90s, normotensive since. Will continue to monitor. Katarzyna Maurer DO 08/25/2017 Associated attestation - Ashleigh Leach MD - 08/25/2017 12:12 PM EST Attending note I have personally reviewed the patient's progress in labor and agree with Dr. Maurer's assessment and plan as documented. Ashleigh Leach MD documented in this encounter H&P Notes Rachell Alex MD - 08/25/2017 5:59 AM EST Obstetrical Term Admission Note Sisi Ruiz is a 41 y.o. at 39w5d gestation being admitted for labor management. HPI: Sisi had mild contractions yesterday evening on and off, was sleeping and woke up with largegush of clear fluid. Her has been complicated by the followin. AMA - low risk [place] 2. Prior LTCS for arrest of descent in 2008 after IOL for late-term. 7 lb 12 oz baby. Per pt story, fully dilated, pushed for 10 minutes then recommended section ? Chorioamnionitis 3. 1 elevated BP at first visit 4. Prior 22 week IUFD due to abruption Review of Systems- Negative to complete review except as noted in the HPI. Obstetric Review of Systems Total Weight Gain this 9.843 kg (21 lb 11.2 oz) Movement: normal Contractions: irregular, every 3-6 minutes Leaking: clear fluid @ midnight, continued leaking Bleeding: some bloody show yesterday, no jeffery bleeding Preeclampsia signs and symptoms: None Active Hospital Problems Diagnosis ??? PROM (premature rupture of membranes) ??? Previous section ??? AMA (advanced maternal age) multigravida 35+ ??? Elevated blood pressure reading in office with white coat syndrome, without diagnosis of hypertension Resolved Hospital Problems Diagnosis Date Resolved No resolved problems to display. Active Non-Hospital Problems Diagnosis ??? CHO intolerance ??? Dermatofibroma ??? Telogen effluvium ??? Nevus Past Medical History: Diagnosis Date ??? Anxiety social anxiety ??? Childhood asthma ??? Migraine headache ??? Varicella ??? White coat hypertension Past Surgical History: Procedure Laterality Date ??? SECTION, LOW TRANSVERSE 07/16/2009 breech OB History Para Term AB Living 5 2 1 1 2 1 SAB TAB Ectopic Multiple Live Births 1 1 0 0 1 # Outc Date GA Lbr Ankur/2nd Wgt Sex Del Anes PTL Lv 1 TAB 2 Term 07/2009 41w0d 3.515 kg (7 lb 12 oz) M CS-LTranv Spinal Living Complications: Occiput posterior presentation of fetus 3 09/2014 22w0d M Vag-Spont Y No, Demise Complications: Abruptio Placenta,Subchorionic hematoma 4 SAB 10/2015 7w0d 5 Current Prescriptions Prior to Admission Medication Sig Dispense Refill Last Dose ??? Wgulqune-Gi-Lhi-Fe-FA Tablet Take by mouth. 08/24/2017 at Unknown time ??? acetaminophen (TYLENOL) 325 mg Tablet Take 325-650 mg by mouth. More than a month at Unknown time Allergies Allergen Reactions ??? Aleve [Naproxen Sodium] Anaphylaxis Family History Problem Relation Age of Onset [...] stillborn daughter ??? Allergies Son Peanut/tree nut ??? Heart Disease Father ??? Hypertension Father ??? Hypertension Paternal Grandfather ??? Hyperlipidemia Paternal Grandfather ??? Heart Disease Paternal Grandfather Social History Occupational History ??? Not on file. Social History Main Topics ??? Smoking status: Former Smoker Types: Cigarettes Quit date: 10/07/1999 ??? Smokeless tobacco: Never Used ??? Alcohol use No ??? Drug use: No ??? Sexual activity: Yes Partners: Male Last Set of Vitals: BP 135/90 Pulse 93 LMP 11/20/2016 (Exact Date) Physical Exam Gen: Awake and alert, appears well Abd: soft, NT, ND, gravid Ext: warm, well-perfused, no LOUIE or calf tenderness Neuro: grossly intact Uterine Size: S=D Clinical EFW: 7 lbs Gross rupture of clear fluid, Nitrazine +, no ferning on initial slide, not repeated due to copious clear fluid seen leaking from vagina. Cervix Exam: Dilation: 2 (08/25/17 0513) Effacement: 25 Station: -3 OB Examiner: Abi Pelvis: average Presentations: Cephalic Heart Rate Interpretation: Baseline: 130, Variability: moderate, Accels: yes, Decels: none [place]: q3-6 minutes Category: 1 Lab Results Component Value Date ABORH A Pos 02/12/2017 HCT 33.3 (L) 06/04/2017 HGB 12.4 06/04/2017 MCV 87.1 02/12/2017 HEPBSAG Negative 02/12/2017 RUBLIGG Positive 02/12/2017 GCAMP Negative 01/22/2017 CHLMGENE Negative 01/22/2017 AST 19 08/25/2017 Lab Results Component Value Date [id number] 153 (External Lab) 06/06/2017 LABGLUC2 156 (EXTERNAL/ABN) 06/06/2017 LABGLUC3 112 (External Lab) 06/06/2017 Lab Results Component Value Date GBSSCREEN Neg 08/02/2017 Recent Labs 08/25/17 0730 WBC 11.9* HGB 13.7 HCT 37.6 PLATELET 149 Recent Labs 08/25/17 0500 CREATININE 0.65* AST 19 Most Recent Growth Ultrasound Date: 07/04 GA at US: 32+2 EFW: Est. FW: 2126 gm 4 lb 11 oz 83 % Growth appropriate for gestational age Amniotic fluid volumenormal Placenta: right lateral Presentation cephalic Assessment & Plan Sisi Ruiz is a 41 y.o. at 39w5d being admitted for PROM. We discussed repeat section vs TOLAC. I have also counseled her in the office about delivery mode. She would like to proceed with TOLAC. Risks including uterine rupture were discussed. She signed a consent form for TOLAC. We also discussed section and associated risks including bleeding, infection, damage to surrounding organs. She signed a consent form. ?? Labor State: Not in labor. ?? Heart Rate Assessment: Category 1. ?? Labor management: Plan to start pitocin, will notify anesthesia of admission. ?? GBS Management: None Required Additional Issues ?? Analgesia plans: undecided, may desire epidural ?? Elevated BP on admission: No symptoms pf pre-eclampsia, Pre-e labs WNL. Would need straight cath for Urine P:C ratio given ROM. Will continue monitoring BPs for now. ?? Contraception: Condoms Rachell Alex MD 08/25/2017 Associated attestation - Ashleigh Leach MD - 08/25/2017 12:10 PM EST Attending note I saw and evaluated the patient. I have reviewed the resident's history during the visit and I agreewith the details as written. My physical examination confirms and/or revises the resident's findings. The assessment and plan were formulated in discussion with me at the time of the visit and I agree with them as documented. Ashleigh Leach MD documented in this encounter Miscellaneous Notes Plan of Care - Barby Solo RN - 08/28/2017 5:27 AM EST Problem: ( Delivery) (Adult) Goal: Signs and Symptoms of Listed Potential Problems Will be Absent, Minimized or Managed () Signs and symptoms of listed potential problems will be absent, minimized or managed by discharge/transition of care (reference ( Delivery) (Adult) CPG). Outcome: Ongoing (Interventions Implemented as Appropriate) OUTCOME EVALUATION NOTE: OUTCOME SUMMARY: Pain well controlled with PRN pain medications. Patient has been independent with care. Patient tolerating regular diet with adequate PO hydration. Patient has been ambulating independently. PLAN MOVING FORWARD: Continue current plan of care. INDIVIDUALIZED FALL PREVENTION INTERVENTIONS: Patient-specific fall risk factors per assessment: [current deficits]: See flowsheet Assistance [level of assistance required for transfers and ambulation]: None Supervision [direct monitoring required during toileting and ADLs]: None Surveillance [continuous indirect monitoring]: Purposeful rounding Patient-specific fall prevention interventions for sensory deficits provided, if applicable: [X] N/A CPG GOAL OUTCOME EVALUATION: ongoing Initial Assessments - Zamzam Leiva MSW - 08/27/2017 9:46 AM EST Office of Care Management Initial Assessment MONICA Martinez reviewed record and discussed patient with Care Team. Source of Information: patient Introduced self/reviewed role; services accepted. Baby's name is Rosalba Merchant Reason for Hospitalization: to give Past Medical History: Diagnosis Date ??? Anxiety social anxiety ??? Childhood asthma ??? Migraine headache ??? Varicella ??? White coat hypertension Hospitalizations Within the Past 30 Days: n/a Anticipated Length Of Stay (If known): Expected Length of Hospitalization: 2-4 days Current Decision-Making Capacity: full Advance Care Planning: n/a Current Coping/Education/Information Needs: Pt is feeling well and hoping to get a little rest soon.Pt reported that she would like a new breast pump and one was ordered through [facility]. Current Functional Ability: post- Functional Status Prior to Admission: full Home Environment: Pt lives at home with FOPratik and their 8 y/o SO. 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 FOB works with [employer] and has flexibility with his time off. Social & Family Supports/Community Resources: Pt reports that both paternal and maternal grandparents are very supportive. SECURITY ORDERLY informed pt of [facility] but pt declined information or referral. Pt declined VNA as her MO is a nurse and will be helping out initially with the baby. Behavioral Health History: Chart states that pt has a hx of anxiety. Pt reports that she is feeling okay and is not experiencing anxiety except for being in the hospital. Substance Use/Abuse: DAST 10 In the past year have you used an illegal drug or used a prescription medication for non-medical reaons?: No AUDIT In the past year have you had 4 or more drinks a day containing alcohol?: No Other Pertinent/Service Specific Information: none Health/Prescription Coverage: Primary Insurance: [employer] OOS Secondary Insurance: [employer] [place] Prescription Coverage: yes Preferred Pharmacy: [facility] Other: none Primary Care Provider: Елена Coates MD [phone] Patient/Caregiver Goals of Treatment: a healthy baby Potential Needs for Transition of Care: Rehab/SNF: n/a Home Health: Pt declined VNA DME: n/a Dialysis: n/a Community Resources: Pt declined information on community resources Transportation: no needs Other: none Anticipated Barriers to Discharge/Special Considerations: none at this time Plan: A member of the Care Management team will continue to monitor progress, follow for continuity of care and assist with transition of care planning. MONICA Martinez Pager: [phone] Plan of Care - Barby Solo RN - 08/27/2017 6:38 AM EST Problem: ( Delivery) (Adult) Goal: Signs and Symptoms of Listed Potential Problems Will be Absent, Minimized or Managed () Signs and symptoms of listed potential problems will be absent, minimized or managed by discharge/transition of care (reference ( Delivery) (Adult) CPG). Outcome: Ongoing (Interventions Implemented as Appropriate) OUTCOME EVALUATION NOTE: OUTCOME SUMMARY: Pain well controlled with PRN pain medications. Patient requires some assist with care. Patient tolerating regular diet with adequate PO hydration. Patient encouraged to ambulate. PLAN MOVING FORWARD: Continue current plan of care. INDIVIDUALIZED FALL PREVENTION INTERVENTIONS: Patient-specific fall risk factors per assessment: [current deficits]: See flowsheet Assistance [level of assistance required for transfers and ambulation]: None Supervision [direct monitoring required during toileting and ADLs]: None Surveillance [continuous indirect monitoring]: Purposeful rounding Patient-specific fall prevention interventions for sensory deficits provided, if applicable: [X] N/A CPG GOAL OUTCOME EVALUATION: Brief Op Note - Amira Palmer MD - 08/26/2017 4:51 PM EST Brief Operative Note Patient Name: Sisi Ruiz : [id number] MR#: [id number] Case Date: 08/26/2017 Surgeon: Surgeon(s) and Role: * Amira Palmer MD - Primary * Kat West MD - Resident-Surgeon Chief Preoperative diagnosis: IUP at 39w6d, Previous C/S, Failed TOLAC, FTP Postoperative diagnosis: IUP at 39w6d, Previous C/S, Failed TOLAC, FTP Procedure: Repeat Low Transverse Section and lysis of adhesions Anesthesia: Epidural Findings: Normal uterus with adhesions from the bladder up to anterior uterine wall and bladder protruding through the rectus muscle diathesis, normal fallopian tubes, normal ovaries, single, living, term, female, 8-9, Weight 3670 gms, normal placenta expressed from the uterus, 3vc identified Complications: None Estimated Blood Loss: 500 mL Specimens removed during surgery: Placenta was sent to pathology Fluids: 1500 cc of crystalloids PRBCs: none (See Anesthesia Record/Report for Other Blood Products) Urine Output: 250 mL Drains: Salomon catheter draining clear urine Disposition: regional anesthesia administered without incident Condition: doing well without problems (Please see the Surgical Encounter Summary for any Implant and Specimen details pertinent to this patient.) Infection Bundle used? Yes Obstetric Infection Bundle: Case Acuity: Urgent/Emergent case Chlorhexidine shower night before surgery?: (not recorded) Chlorhexidine shower morning of surgery on BP?: (not recorded) 2 % Chlorhexadine-alcohol skin prep: Yes Vaginal prep povidone -iodine scrub: Yes Pre op IV antibiotics: Ancef Preop antibiotics given between 15-60 minutes prior to incision? Yes Evidence of chorioamnionitis: No Intra-op antibiotic re-dose (for surgery length >3 hours or EBL >1500cc): N/A Closure of subcutaneous tissue > 2 cm: N/A Subcuticular skin closure: Yes L&D Delivery Note - Kat West - 08/26/2017 4:10 PM EST Section Delivery Note Sisi Ruiz is a 41 y.o. woman at 39w6d weeks gestational age whose was complicated by history of section who presented with premature rupture of membranes. She was induced with pitocin and received an epidural for analgesia. She had slow labor progress and an intrauterine pressure catheter was placed for titration of pitocin. She remained 8cm dilated for five hours despite pitocin at 18mU. The decision was made to proceed with a repeat low transverse section secondary to failure to dilate. Patient underwent uncomplicated repeat low transverse section. Viable female infant. APGARSof 8 and 9. Weight of 3670g. Blood loss estimated at 500ccs. Please see op note for further details. KAT WEST MD PGY3 08/26/2017 Information for the patient's : Zev Ruiz [[id number]] DELIVERY SUMMARY FOR Baby carlos Ruiz (please note there is a separate summary for each fetus) 08/26/2017 3:15 PM by Sex: female Gestational Age: 39w6d Labor Events labor?: No GBS colonized: negative steroids: None Cervical ripening date/time: Cervical ripening type Rupture identifier: Rupture 1 Rupture date/time: 08/25/1729 Rupture type: spontaneous rupture of membranes Labor onset type: spontaneous onset of labor Augmentation: Oxytocin Labor onset date/time: 08/25/1729 Labor Event Times Labor onset date/time: 08/25/1729 Dilation complete date/time: Start pushing date/time: Mother Delivery Episiotomy: None Perineal lacerations: None Vaginal laceration: No Cervical laceration: No Surgical or additional est. blood loss (mL): 500 Combined est. blood loss (mL): 500 Repair suture: None Delivery ([place]) Delivery Date: 08/26/17 Delivery Time: 151 Sex: Female Shoulder Dystocia Shoulder dystocia present?: No Delivery Information Delivery Location: OR Delivering Clinician: KAT WEST ICAnahy Staff Present: Yes Other Personnel: Provider Role MARCELO GALLEGOS Delivery Nurse AMIRA PALMER [employer] ARTURO DECKER Delivery Assist KAT WEST Resident Anesthesia Method: Epidural Cord Vessels: 3 Vessels Complications: None Gases Sent?: No Cord Insertion: normal Assessment & APGARS Living status: Living Apgars 1 Minute: 5 Minute: 10 Minute 15 Minute 20 Minute Skin Color: 0 1 Heart Rate: 2 2 Reflex Irritability: 2 2 Muscle Tone: 2 2 Respiratory Effort: 2 2 Total: 8 9 Apgars Assigned By: Kristina JONES APRN Resuscitation Method: Suctioning Suctioning Method: Bulb syringe Maternal [place] Feeding and Skin to Skin Maternal Choice for [place](s) Feeding on Admission: Skin to skin initiation date/time: 1520 Skin to skin with: Mother Medications [place] Medications Given: vitamin K, erythromycin Measurements Weight: 3670 g Length: 0.521 m Head Circumference: 0.36 m Observed Anomalies: Sacral dimple; able to see base. Enlarged labia minora Placenta Date and Time: 08/26/2017 1316 Removal: Manual Removal Appearance: Intact Labor Length No data filed Op Note - Kat West - 08/26/2017 4:10 PM EST Operative Note Patient Name: Sisi Ruiz : [id number] MR#: [id number] ?? Case Date: 08/26/2017 ?? Surgeon: Surgeon(s) and Role: * Amira Palmer MD - Primary * Kat West MD - Resident-Surgeon Chief ?? Preoperative diagnosis: IUP at 39w6d, Previous C/S, Failed TOLAC, FTP ?? Postoperative diagnosis: IUP at 39w6d, Previous C/S, Failed TOLAC, FTP ?? Procedure: Repeat Low Transverse Section and lysis of adhesions ?? Anesthesia: Epidural ?? Findings: Normal uterus with adhesions from the bladder up to anterior uterine wall and bladder protruding through the rectus muscle diathesis, normal fallopian tubes, normal ovaries, single, living, term, female, 8-9, Weight 3670 gms, normal placenta expressed from the uterus, 3vc identified ?? Complications: None ?? Estimated Blood Loss: 500 mL ?? Specimens removed during surgery: Placenta was sent to pathology ? Fluids: 1500 cc of crystalloids ?? PRBCs: none (See Anesthesia Record/Report for Other Blood Products) ? Urine Output: 250 mL ?? Drains: Salomon catheter draining clear urine ?? Disposition: regional anesthesia administered without incident ?? Condition: doing well without problems HPI/ Indications for Procedure: Sisi Ruiz is a 41 y.o. woman at 39w6d weeks gestational age whose was complicated by history of section who presented with premature rupture of membranes. She was induced with pitocin and received an epidural for analgesia. She had slow labor progress and an intrauterine pressure catheter was placed for titration of pitocin. She remained 8cm dilated for five hours despite pitocin at 18mU. The decision was made to proceed with a repeat low transverse section secondary to failure to dilate. The decision was made to proceed with delivery secondary to continued heavy bleeding. The risks, benefits and alternatives were discussed including bleeding, infection and damage to surrounding structures (bowel, bladder, uterus, tubes, ovaries, ureters, blood vessels or nerves). The procedure was reviewed in detail with the patient, who had the opportunity to ask questions, all of which were answered. Consent was obtained. Procedure Description: The patient was taken to the Operating Room with IV fluids running where epidural anesthesia was bolused and found to be adequate. The patient was given 2 gm of Ancef and 500mg of IV azithromycin. The patient was placed in the dorsal supine position with a leftward tilt. SCD's were placed and operating. The patient was then prepped and draped in the usual sterile fashion. Salomon catheter was in place.A surgical timeout was performed with all parties in agreement. After epidural anesthesia was confirmed adequate, a Pfannenstiel skin incision was made with a scalpel and carried through to the underlying layer of fascia with sharp dissection. The fascia was nickedin the midline and at this time bladder was seen to protrude through the midline of the fascia due to a diastasis. The incision was carefully extended laterally with the curved Saavedra scissors with caution to avoid the bladder. The superior aspect of the fascial incision was then grasped with Mahesh clamps, elevated, and the rectus muscle was dissected off sharply. Attention was then turned to the inferior aspect of the fascial incision, where the bladder was densely adherent to the underside of the fascia. The inferior aspect of the fascia was grasped with Mahesh clamps, elevated and the underlying rectus and pyramidalis muscles were dissected off sharply with saavedra scissors however due to adhesions, not down to the level of the pubic symphsis. The rectus muscles were then in the midline and the peritoneum identified and entered sharply with Metzenbaum scissors. The peritoneal incision was then extended superiorly and inferiorly to the bladder reflection. The bladder was adherent to the anterior wall of the uterus. The bladder blade was then inserted and the vesicouterine peritoneum identified, grasped with pickups and entered sharply with Metzenbaum scissors. This incision was then extended laterally and the bladder flap created digitally. The bladder blade was replaced and the lower uterine segment incised in a transverse fashion with a scalpel. The hysterotomy was extended with cephalocaudad traction. The bladder blade was then removedand a hand inserted into the uterus. After the head was brought to the hysterotomy, gentle fundal pressure was applied to facilitate delivery of infant. The head and shoulders delivered easily. Live born female infant was delivered. The cord was doubly clamped and cut. The was handed off to the [facility] pediatricians, who assigned Apgars of 8 and 9. Oxytocin was initiated to facilitate uterine contractions. The placenta was expressed and the uterus was then exteriorized. The uterus was cleared of all clotsand debris. The uterine incision was repaired with 0 vicryl in a continuous locked fashion. A secondlayer of the same suture was used to imbricate the first layer. Excellent hemostasis was appreciated. The uterus was returned to the abdomen. Examination of the pelvis revealed normal uterus, tubes andovaries. The gutters were cleared of all clots. The hysterotomy and the bladder flap were checked again and found to be hemostatic. The fascia was reapproximated with 0-vicryl in a running fashion. Thesubcutaneous space was well irrigated. The subcutaneous space was loosely reapproximated with 2-0 plain gut suture. The skin was closed with 4-0 monocryl in a subcuticular closure. Sterile dressings were applied over the incision. The uterus was expressed. The patient and tolerated the procedure well and were in satisfactory condition at its conclusion. Sponge, lap and needle counts were correct times two at case close. The patient was taken back to her room in stable condition. Dr. Palmer was present for and participated in the entire procedure without any conflicting clinical responsibilities. KAT WEST MD PGY3 08/26/2017 Associated attestation - Amira Palmer MD - 08/27/2017 7:37 AM EST Attestation: Case Date: 08/26/2017 I was present and I participated during the entire procedure (does not need to include opening and closing). Amira Palmer MD 08/27/2017 Plan of Care - Marcelo Gallegos RN - 08/25/2017 12:17 PM EST Problem: Patient Care Overview Goal: Plan of Care Review Outcome: Ongoing (Interventions Implemented as Appropriate) 08/25/17 1213 Coping/Psychosocial Plan Of Care Reviewed With patient;spouse Plan of Care Review Progress progress toward functional goals as expected OUTCOME EVALUATION NOTE: OUTCOME SUMMARY: Pt on pitocin to induce labor, TOLAC PLAN MOVING FORWARD: Continue to assist in pitocin augmentation and monitro fetus and mother for potential problems INDIVIDUALIZED FALL PREVENTION INTERVENTIONS: Patient-specific fall risk factors per assessment: [current deficits]: IV therapy Assistance [level of assistance required for transfers and ambulation]: independent Supervision [direct monitoring required during toileting and ADLs]: none Surveillance [continuous indirect monitoring]: Purposeful rounding Patient-specific fall prevention interventions for sensory deficits provided, if applicable: [X] N/A CPG GOAL OUTCOME EVALUATION: Goal: Individualization & Mutuality Outcome: Ongoing (Interventions Implemented as Appropriate) 08/25/17 0602 Mutuality/Individual Preferences What Anxieties, Fears or Concerns Do You Have About Your Health or Care? Not liking hospitals/doctors offices, past birthing experiences What Questions Do You Have About Your Health or Care? When will we start low dose pitocin? What Information Would Help Us Give You More Personalized Care? No vaccines for baby Goal: Fall Prevention-Safe Patient Handling Outcome: Ongoing (Interventions Implemented as Appropriate) 08/25/17 0834 08/25/17 1213 Positioning Body Position -- independent Activity and Safety Assistive Device -- None Daily Care Interventions Self-Care Promotion -- independence encouraged Mac Fall Risk History of Falling 0 -- Secondary Diagnosis 15 -- Ambulatory Aids 0 -- Intravenous Therapy/Heparin/Saline Lock 20 -- Gait/Transferring 0 -- Mental Status 0 -- Score 35 -- OTHER Mac Fall Risk Med -- Restraint Interventions Safety Promotion/Fall Prevention nonskid shoes/slippers when out of bed;safety round/check completed-- Goal: Infection Control Outcome: Ongoing (Interventions Implemented as Appropriate) 08/25/17 1213 Safety Interventions Isolation Precautions standard precautions maintained Infection Prevention barrier precautions utilized;cohorting utilized;environmental surveillance performed;equipment surfaces disinfected;personal protective equipment utilized;rest/sleep promoted;single patient room provided Coping Strategies Supportive Measures active listening utilized;decision-making supported;goal setting facilitated;positive reinforcement provided;problem solving facilitated;relaxation techniques promoted;verbalizationof feelings encouraged;self-responsibility promoted;self-care encouraged;self-reflection promoted Goal: Discharge Needs Assessment Outcome: Ongoing (Interventions Implemented as Appropriate) 08/25/17 1213 Discharge Needs Assessment Concerns To Be Addressed no discharge needs identified;denies needs/concerns at this time Equipment Needed After Discharge none Discharge Disposition home or self-care Current Health Anticipated Changes Related to Illness none Activity/Self Care Review of Systems Equipment Currently Used at Home none Living Environment Transportation Available car Goal: Interdisciplinary Rounds/Family Conf Outcome: Ongoing (Interventions Implemented as Appropriate) 08/25/17 1213 Interdisciplinary Rounds/Family Conf Participants patient;physician;nursing Problem: Labor (Cervical Ripen, Induct, Augment) (Adult,Obstetrics,Pediatric) Goal: Signs and Symptoms of Listed Potential Problems Will be Absent, Minimized or Managed (Labor) Signs and symptoms of listed potential problems will be absent, minimized or managed by discharge/transition of care (reference Labor (Cervical Ripen, Induct, Augment) (Adult,Obstetrics,Pediatric) CPG). Outcome: Ongoing (Interventions Implemented as Appropriate) 08/25/17 1213 Labor (Cervical Ripen, Induct, Augment) Problems Assessed (Labor) all Problems Present (Labor) none documented in this encounter Plan of Treatment Not on filedocumented as of this encounter Procedures Procedure Name Priority Date/Time Associated Diagnosis Comme nts HEMOGRAM Routine 08/27/2017 2:00 AM Results f or this EST procedure are i n the results section. DIFFERENTIAL, Routine 08/27/2017 2:00 AM Results for this AUTOMATED EST procedure are i n the results section. CBC (WITH DIFF) Routine 08/27/2017 2:00 AM EST SPECIMEN TO Routine 08/26/2017 4:28 PM Results f or this PATHOLOGY (NON-OR) EST procedure are in the results section. @ DELIVERY 08/26/2017 2:30 PM (WRVU 16.13) EST Case Notes uterine incision 1515 SURGICAL PATHOLOGY REPORT Routine 08/26/2017 1:45 PM EST Results for this procedure are i n the results section . HEMOGRAM Routine 08/26/2017 8:00 AM EST Resul ts for this procedure are i n the results section . DIFFERENTIAL, AUTOMATED Routine 08/26/2017 8:00 AM EST Results for this procedure are i n the results section . CBC (WITH DIFF) Routine 08/26/2017 8:00 AM EST PROTEIN/CREATININE RATIO, Routine 08/26/2017 1:25 AM EST Results for this URINE procedure are i n the results section . HEMOGRAM Routine 08/25/2017 3:15 PM EST Resul ts for this procedure are i n the results section . CREATININE Routine 08/25/2017 3:15 PM EST Resul ts for this procedure are i n the results section . ASPARTATE AMINOTRANSFERASE Routine 08/25/2017 3:15 PM EST Results for this procedure are i n the results section . HEMOGRAM Routine 08/25/2017 7:30 AM EST Resul ts for this procedure are i n the results section . DIFFERENTIAL, AUTOMATED Routine 08/25/2017 7:30 AM EST Results for this procedure are i n the results section . CBC (WITH DIFF) Routine 08/25/2017 7:30 AM EST CREATININE STAT 08/25/2017 5:00 AM EST Resul ts for this procedure are i n the results section . ASPARTATE AMINOTRANSFERASE STAT 08/25/2017 5:00 AM EST Results for this procedure are i n the results section . PROTEIN/CREATININE RATIO, Routine 08/25/2017 1:25 AM EST Results for this URINE procedure are i n the results section . documented in this encounter Results (ABNORMAL) Differential, Automated (08/27/2017 2:00 AM EST) [facility] Method Time Signature Neutrophils % 84.8 % [facility] Neutr Abs (ANC) 11.78 (H) 1.70 - [facility] [address] [facility] [facility] x10(3)/[facility] LABOR[facility] Lymphocytes % 10.1 % [facility] Lymphocytes Abs 1.4 0.9 - 3.[address] [facility] x10(3)/[facility] LABORATORY Monocytes % 4.2 % [facility] Monocyte Abs 0.6 0.3 - 0.[address] [facility] x10(3)/[facility] LABORATORY Eosinophils % 0.3 % [facility] Eosinophils Abs 0.0 0.0 - 0.[address] [facility] x10(3)/[facility] LABOR[facility]ORY Basophils % 0.2 % [facility] Basophils Abs 0.0 0.0 - 0.[address] [facility] x10(3)/[facility] LABOR[facility]ORY Immature Gran % 0.40 % [facility] Comment: Immature granulocytes(IG's)percentage an d absolute count will include metamyelocytes, myelocytes, and promyelo cytes. Blood smears from CBCs yielding IG's will be scanned manually for concor dance. If this scan disagrees with the automated IG or if promyelocytes are not ed, a manual differential will be performed. Ashley Gran Abs 0.05 (H) 0.00 - 0.04 x10(3)/[facility] LABORATORY Specimen Anatomical Collection Method Collection Time Receive d Time (Source) Location / / Volume Laterality Blood specimen 08/27/2017 2:00 AM 017 2:09 (specimen) EST AM EST Resulting Agency Comment Spec In Lab David Aleman MD HEMATOLOGY ORDERABLES Performing Organization Address City/State/[place] [address] (ABNORMAL) Hemogram (08/27/2017 2:00 AM EST) Analysis Performed At Patho logist Time Signature WBC 13.9 (H) 4.0 - 9.5 [facility] [facility] LAB[facility]ATORY RBC 3.50 (L) 4.00 - [facility] [address] [facility] x10(6)/[facility] LABORATORY Hemoglobin 12.1 11.7 - [facility] 15.5 gm/dL [facility] LABORATORY Hematocrit 33.2 (L) 35.7 - [facility] 45.8 % [facility]ATORY MCV 94.9 (H) 82.6 - [facility] 94.4 [facility] LABORATORY MCH 34.6 (H) 27.1 - [facility] 32.0 pg [facility]AT[facility] MCHC 36.4 (H) 31.7 - [facility] 35.0 gm/dL [facility] LABORATORY Platelets 121 (L) 145 - [address] [facility] x10(3)/[facility] LABORATORY RDWSD 46.0 37.0 - [facility]0 [facility] LABORATORY RDWCV 13.4 11.5 - [facility] 14.1 % [facility] LABORATORY MPV 10.5 7.6 - 12.9 [facility] LABORATORY nRBC % Auto 0.0 % [facility] LABORATORY nRBC Abs Auto 0.000 0.000 - [facility] [address] [facility] x10(3)/[facility] LABORATORY Specimen Anatomical Collection Method Collection Time Receive d Time (Source) Location / / Volume Laterality Blood specimen 08/27/2017 2:00 AM 017 2:09 (specimen) EST AM EST Resulting Agency Comment Spec In Lab David Aleman MD HEMATOLOGY ORDERABLES Performing Organization Address City/[facility]/ZIP Code Phon e Number [address] Specimen to Pathology (NON-OR) (08/26/2017 4:28 PM EST) Specimen Anatomical Collection Method Collection Time Receive d Time (Source) Location / / Volume Laterality AP Specimen 08/26/2017 4:28 PM 7 4:28 EST PM EST Narrative [facility] LABORAT ORY - 08/26/2017 4:28 PM EST Specimen requisition ordered. ??Separate Pathology report to follow David Aleman MD PATHOLOGY/CYTOLOGY ORDERABLE S Performing Organization Address City/[facility]/[place] [address] Surgical Pathology Report (08/26/2017 1:45 PM EST) Component Value Ref Test Analysis Performed At [facility] Range Method Time Signature Surgical [id number] ? Location: BP; [facility]; [facility] Report The signing pathologist has (i) examined the relevant preparation(s) for the [facility] specimen(s) and (ii) rendered or confirmed the diagnosis(es) . HOSPITAL LABORATORY . ?Surgic al Pathology DIAGNOSIS A - Term placenta, 578 grams. ?Grade 2/stage 2 chorioamnionitis with patchy bas ophilic choriodecidual ?necrosis. ?Mild meconium effect noted on amnion. ?Three vessel umbilical cord with velamentous mar ginal insertion and no ?funisitis. Electronically signed by: ??Yobany Leach MD Verified: ??09/02/2017 ?Pathologist Performed at: ??-[facility] [place], [place], [place] CLINICAL INFORMATION Specimen Submitted: A - Placenta Clinical History: 41 year old with pre-eclampsia and PROM at 39 weeks gestation. Clinical Diagnosis: Same. SPECIMEN PROCESSING A - Labeled/Fixative: Placenta, fresh. Qty/Size/Weight: Single, 19.1 x 16.3 x 2.7 cm, 578 grams. Tissue Description: Intact s [place] placenta with attached membranes and umbilical cord. Membranes: Thin, semi-translucent, marginal insertion. Cord: 34.2 x 0.9 cm; three vessels; velamentous/marginal ins ertion. Surface: [place] to red w ith prominent vasculature and focal peripheral quiñones-yellow mottling involving approximate 30 percent of the peripheral edge. Maternal Surface: Focally di srupted, grossly complete with focal loosely attached blood clots. Parenchyma: Spongy, purple-r ed with an orange-yellow wedge-shaped lesion at the periphery associated with t he peripheral plaque noted on the surface and measuring up to 2.4 cm. Sections/Processing: (1) mem brane roll; (2) proximal and distal cord; (3-8) full thickness parenchyma-bisected; (9) lesion. (R9) ??pps Specimen (Source) Anatomical Collection Method Collection Time Re ceived Time Location / / Volume Laterality 08/26/2017 1:45 PM EST Kat West MD PATHOLOGY/CYTOLOGY ORDERABLE S Performing Organization Address City/State/ZIP Code Phon e Number [place] [id number] HOSPITAL LAB[address]ATORY [address] (ABNORMAL) Differential, Automated (08/26/2017 8:00 AM EST) [facility] gist Method Time Signature Neutrophils % 85.7 % [facility] LABORATORY Neutr Abs (ANC) 11.79 (H) 1.70 - [facility] [address] [facility] [facility] x10(3)/[facility] LABORATORY Lymphocytes % 8.9 % [facility] LABORATORY Lymphocytes Abs 1.2 0.9 - 3.[address] [facility] x10(3)/[facility] LABORATORY Monocytes % 4.6 % [facility] LABORATORY Monocyte Abs 0.6 0.3 - 0.[address] [facility] x10(3)/[facility] LABORATORY Eosinophils % 0.0 % [facility] LABORATORY Eosinophils Abs 0.0 0.0 - 0.[address] [facility] x10(3)/[facility] LABORATORY Basophils % 0.2 % [facility] LABORATORY Basophils Abs 0.0 0.0 - 0.[address] [facility] x10(3)/[facility] LABORATORY Immature Gran % 0.60 % [facility] LABORATORY Comment: Immature granulocytes(IG's)percentage an d absolute count will include metamyelocytes, myelocytes, and promyelo cytes. Blood smears from CBCs yielding IG's will be scanned manually for concor dance. If this scan disagrees with the automated IG or if promyelocytes are not ed, a manual differential will be performed. Ashley Gran Abs 0.08 (H) 0.00 - 0.04 x10(3)/[facility] LABORATORY Specimen Anatomical Collection Method Collection Time Receive d Time (Source) Location / / Volume Laterality Blood specimen 08/26/2017 8:00 AM 017 8:13 (specimen) EST AM EST Resulting Agency Comment Spec In Lab David Aleman MD HEMATOLOGY ORDERABLES Performing Organization Address City/State/[place] [address] (ABNORMAL) Hemogram (08/26/2017 8:00 AM EST) Analysis Performed At Patho logist Time Signature WBC 13.8 (H) 4.0 - 9.[address] [facility] x10(3)/[facility] LABORATORY RBC 3.82 (L) 4.00 - [facility] [address] [facility] [facility] x10(6)/[facility] LABORATORY Hemoglobin 13.6 11.7 - [facility] 15.[facility] gm/dL [facility] LABORATORY Hematocrit 36.2 35.7 - [facility] 45.8 % [facility] LABORATORY MCV 94.8 (H) 82.6 - [facility] 94.4 fL [facility] LABORATORY MCH 35.6 (H) 27.1 - [facility] 32.0 pg [facility] LABORATORY MCHC 37.6 (H) 31.7 - [facility] 35.0 gm/dL [facility] LABORATORY Platelets 131 (L) 145 - [address] [facility] x10(3)/[facility] LABORATORY RDWSD 46.6 (H) 37.0 - [facility] 46.0 [facility] LABORATORY RDWCV 13.5 11.5 - [facility] 14.1 % [facility] LABORATORY MPV 10.9 7.6 - 12.9 [facility] LABORATORY nRBC % Auto 0.0 % [facility] LABORATORY nRBC Abs Auto 0.000 0.000 - [facility] [address] [facility] [facility] x10(3)/[facility] LABORATORY Specimen Anatomical Collection Method Collection Time Receive d Time (Source) Location / / Volume Laterality Blood specimen 08/26/2017 8:00 AM 017 8:13 (specimen) EST AM EST Resulting Agency Comment Spec In Lab David Aleman MD HEMATOLOGY ORDERABLES Performing Organization Address City/[facility]/ZIP Code Phon e Number [address] Protein/Creatinine Ratio, urine (08/26/2017 1:25 AM EST) P athologist Signature U Creatinine 40 mg/dL [facility] LABORATORY U Protein Ran 8 0 - [address] [facility] mg/dL [facility] LABORATORY Prot/Cre Ratio 0.2 ratio [facility] LABORATORY Specimen Anatomical Collection Method Collection Time Receive d Time (Source) Location / / Volume Laterality Urine specimen 08/26/2017 1:25 AM 017 2:09 (specimen) EST AM EST Resulting Agency Comment Spec In Lab David Aleman MD URINE ORDERABLES Performing Organization Address City/[facility]/ZIP Code Phon e Number [address] (ABNORMAL) Hemogram (08/25/2017 3:15 PM EST) Analysis Performed At Patho logist Time Signature WBC 13.4 (H) 4.0 - 9.[address] [facility] x10(3)/[facility] LABORATORY RBC 4.09 4.00 - [facility] [address] [facility] [facility] x10(6)/[facility] LABORATORY Hemoglobin 14.2 11.7 - [facility] 15.5 gm/dL [facility] LABORATORY Hematocrit 38.2 35.7 - [facility] 45.8 % [facility] LABORATORY MCV 93.4 82.6 - [facility] 94[facility]4 [facility] LABORATORY MCH 34.7 (H) 27.1 - [facility] 32.0 pg [facility] LABORATORY MCHC 37.2 (H) 31.7 - [facility] 35.0 gm/dL [facility] LABORATORY Platelets 155 145 - [address] [facility] x10(3)/[facility] LABORATORY RDWSD 45.1 37.0 - [facility] 46.0 [facility] LABORATORY RDWCV 13.3 11.5 - [facility] 14.1 % [facility] LABORATORY MPV 11.0 7.6 - 12.9 [facility] LABORATORY nRBC % Auto 0.0 % [facility] LABORATORY nRBC Abs Auto 0.000 0.000 - [facility] [address] [facility] [facility] x10(3)/[facility] LABORATORY Specimen Anatomical Collection Method Collection Time Receive d Time (Source) Location / / Volume Laterality Blood specimen 08/25/2017 3:15 PM 017 3:39 (specimen) EST PM EST Resulting Agency Comment Spec In Lab David Aleman MD HEMATOLOGY ORDERABLES Performing Organization Address City/State/[place] [address] (ABNORMAL) Creatinine (08/25/2017 3:15 PM EST) Analysis Performed At Patho logist Time Signature Creatinine 0.64 (L) 0.70 - [facility] 1.20 mg/dL [facility] LABORATORY Estimated GFR >60 >=60 [facility] LABORATORY Comment: The reported eGFR should be multiplied b y 1.2 for patients. The MDRD is not an appropriate measure o f renal function for patients with body mass extremes or in patients with acute kidney failure. http://soup.me.[employer]/DHnkdep http://soup.me.[employer]/DHMCnkf Specimen Anatomical Collection Method Collection Time Receive d Time (Source) Location / / Volume Laterality Blood specimen 08/25/2017 3:15 PM 017 3:39 (specimen) EST PM EST Resulting Agency Comment Spec In Lab David Aleman MD CHEMISTRY ORDERABLES Performing Organization Address City/State/ZIP Code Phon e Number [address] Aspartate Aminotransferase (08/25/2017 3:15 PM EST) P athologist Signature AST 18 0 - [address] [facility] unit/[facility] LABORATORY Specimen Anatomical Collection Method Collection Time Receive d Time (Source) Location / / Volume Laterality Blood specimen 08/25/2017 3:15 PM 017 3:39 (specimen) EST PM EST Resulting Agency Comment Spec In Lab David Aleman MD CHEMISTRY ORDERABLES Performing Organization Address City/[facility]/ZIP Code Phon e Number [address] (ABNORMAL) Differential, Automated (08/25/2017 7:30 AM EST) Patholo gist Method Time Signature Neutrophils % 80.8 % [facility] LABORATORY Neutr Abs (ANC) 9.63 (H) 1.70 - [facility] [address] [facility] [facility] x10(3)/[facility] LABORATORY Lymphocytes % 12.4 % [facility] LABORATORY Lymphocytes Abs 1.5 0.9 - 3.[address] [facility] x10(3)/[facility] LABORATORY Monocytes % 5.0 % [facility] LABORATORY Monocyte Abs 0.6 0.3 - 0.[address] [facility] x10(3)/[facility] LABORATORY Eosinophils % 0.2 % [facility] LABORATORY Eosinophils Abs 0.0 0.0 - 0.[address] [facility] x10(3)/[facility] LABORATORY Basophils % 0.3 % [facility] LABORATORY Basophils Abs 0.0 0.0 - 0.[address] [facility] x10(3)/[facility] LABORATORY Immature Gran % 1.30 % [facility] LABORATORY Comment: Immature granulocytes(IG's)percentage an d absolute count will include metamyelocytes, myelocytes, and promyelo cytes. Blood smears from CBCs yielding IG's will be scanned manually for concor dance. If this scan disagrees with the automated IG or if promyelocytes are not ed, a manual differential will be performed. Ashley Gran Abs 0.16 (H) 0.00 - 0.04 x10(3)/[facility] LABORATORY Specimen Anatomical Collection Method Collection Time Receive d Time (Source) Location / / Volume Laterality Blood specimen 08/25/2017 7:30 AM 017 7:55 (specimen) EST AM EST Resulting Agency Comment Spec In Lab David Aleman MD HEMATOLOGY ORDERABLES Performing Organization Address City/State/[place] [address] (ABNORMAL) Hemogram (08/25/2017 7:30 AM EST) Analysis Performed At Patho logist Time Signature WBC 11.9 (H) 4.0 - 9.[address] [facility] x10(3)/[facility] LABORATORY RBC 4.01 4.00 - [facility] [address] [facility] [facility] x10(6)/[facility] LABORATORY Hemoglobin 13.7 11.7 - [facility] 15.[facility] gm/dL [facility] LABORATORY Hematocrit 37.6 35.7 - [facility] 45.8 % [facility] LABORATORY MCV 93.8 82.6 - [facility] 94.4 [facility] LABORATORY MCH 34.2 (H) 27.1 - [facility] 32.0 pg [facility] LABORATORY MCHC 36.4 (H) 31.7 - [facility] 35.0 gm/dL [facility] LABORATORY Platelets 149 145 - [address] [facility] x10(3)/[facility] LABORATORY RDWSD 45.4 37.0 - [facility] 46.0 [facility] LABORATORY RDWCV 13.2 11.5 - [facility] 14.1 % [facility] LABORATORY MPV 11.4 7.6 - 12.9 [facility] LABORATORY nRBC % Auto 0.0 % [facility] LABORATORY nRBC Abs Auto 0.000 0.000 - [facility] [address] [facility] [facility] x10(3)/[facility] LABORATORY Specimen Anatomical Collection Method Collection Time Receive d Time (Source) Location / / Volume Laterality Blood specimen 08/25/2017 7:30 AM 017 7:55 (specimen) EST AM EST Resulting Agency Comment Spec In Lab David Aelman MD HEMATOLOGY ORDERABLES Performing Organization Address City/[facility]/[place] [address] (ABNORMAL) Creatinine (08/25/2017 5:00 AM EST) Analysis Performed At Patho logist Time Signature Creatinine 0.65 (L) 0.70 - [facility] 1.20 mg/dL [facility] LABORATORY Estimated GFR >60 >=60 [facility] LABORATORY Comment: The reported eGFR should be multiplied b y 1.2 for patients. The MDRD is not an appropriate measure o f renal function for patients with body mass extremes or in patients with acute kidney failure. http://[employer]/DHnkdep http://[employer]/DHMCnkf Specimen Anatomical Collection Method Collection Time Receive d Time (Source) Location / / Volume Laterality Blood specimen 08/25/2017 5:00 AM 017 5:29 (specimen) EST AM EST Resulting Agency Comment Spec In Lab David Aleman MD CHEMISTRY ORDERABLES Performing Organization Address City/[facility]/[place] [address] Aspartate Aminotransferase (08/25/2017 5:00 AM EST) P athologist Signature AST 19 0 - [address] [facility] unit/L [facility] LABORATORY Specimen Anatomical Collection Method Collection Time Receive d Time (Source) Location / / Volume Laterality Blood specimen 08/25/2017 5:00 AM 017 5:29 (specimen) EST AM EST Resulting Agency Comment Spec In Lab David Aleman MD CHEMISTRY ORDERABLES Performing Organization Address City/[facility]/[place] [address] (ABNORMAL) Protein/Creatinine Ratio, urine (08/25/2017 1:25 AM EST) P athologist Signature U Creatinine 48 mg/dL [facility] LABORATORY U Protein Ran 15 (H) 0 - [address] [facility] mg/dL [facility] LABORATORY Prot/Cre Ratio 0.3 ratio [facility] LABORATORY Specimen Anatomical Collection Method Collection Time Receive d Time (Source) Location / / Volume Laterality Urine specimen Urine / Unknown 08/25/2017 1:25 AM 08/08 8:01 (specimen) EST AM EST Resulting Agency Comment Spec In Lab Katarzyna Reidbit URINE ORDERABLES Performing Organization Address City/State/[place] [address] documented in this encounter Visit Diagnoses Not on filedocumented in this encounter Admitting Diagnoses Diagnosis PROM (premature rupture of membranes) Premature rupture of membranes in pregna ncy, unspecified as to episode of care documented in this encounter Administered Medications Inactive Administered Medications - up to 3 most recent administrations Medication Order MAR Action Action Date Dose Rate Site acetaminophen (TYLENOL) tablet 650 Given 08/28/2017 5:35 AM EST 650 mg mg 650 mg, Oral, EVERY 6 HOURS PRN, Starting on Sat08/26/17 at 1652, Until Sat08/28/17 at 1507, Pain, Maximum dose of acetaminophen is 4000 mg from all sources in 24 hours., Routine Given 08/27/2017 9:34 PM EST 650 mg Given 08/27/2017 2:00 PM EST 650 mg docusate sodium (COLACE) capsule 100 mg Given 08/28/2017 8:37 AM EST 100 mg 100 mg, Oral, 2 TIMES DAILY, First dose on Sat08/26/17 at 2100, Until Discontinued, Routine Given 08/27/2017 9:34 PM EST 100 mg Given 08/27/2017 8:22 AM EST 100 mg ondansetron (ZOFRAN) injection 4 mg 4 mg, Intravenous, EVERY 8 HOURS PRN, St arting on Sat08/26/17 at 1653, Until Sat08/28/17 at 1507, Nausea, Routine oxyCODONE (ROXICODONE) immediate release tablet Given 08/28/2017 9:36 AM EST 5 mg 5-10 mg 5-10 mg, Oral, EVERY 4 HOURS PRN, Starting on Sat08/26/17 at 1628, Until Sat08/28/17 at 1507, Pain, Severe pain (7-10), 5mg for 3-6/10 and 10mg for 7-10/10, Routine Given 08/28/2017 5:35 AM EST 5 mg Given 08/28/2017 1:10 AM EST 5 mg polyethylene glycol (MIRALAX) packet 17 g Given 08/27/2017 8:23 AM EST 17 g 17 g, Oral, DAILY PRN, Starting on Sat08/26/17 at 1628, Until Sat08/28/17 at 1507, Constipation, Routine documented in this encounter Active and Recently Administered Medications Times are shown in EST. Scheduled Medication Order 08/26/2017 08/27/2017 08/28/2017 azithromycin (ZITHROMAX) 500 mg in sodium chloride 0.9 % 255 mL (COMPLETED) 1416 (New Bag - Provider: Marcelo Gallegos RN)1516 (Stopped - Provider: Barby Solo RN) 500 mg, Intravenous, ONCE, 1 dose, Sat10/26/16 at 1430, Administer over 60 Minutes, Indication for (Active or Suspected): Prophylaxis docusate sodium (COLACE) capsule 100 mg 215 (Given - Provider: Barby Solo RN) 0822 (Given - Provider: Jamia Decker)2 134 (Given - Provider: Barby Solo RN) 0837 (Given - Provider: Ledy Mauro RN) 100 mg, Oral, 2 TIMES DAILY, First dose on Sat08/26/17 at 2100, Until Discontinued, Routine HYDROmorphone (DILAUDID) injection 0.2 mg (COMPLETED) 1703 (Given - Provider: Marcelo Gallegos RN) 0.2 mg, Intravenous, ONCE, 1 dose, Sat08/26/17 at 1715, Routine ketorolac (TORADOL) injection 15 mg (COMPLETED) 215 ( Given - Provider: Barby Solo RN) 0429 (Given - Provider: Barby lofton RN)1122 (Given - Provider: Jamia Decker)1742 (Given - Provider: Destiny Burgos RN) 15 mg, Intravenous, EVERY 6 HOURS, 4 dos es, First dose on Sat08/26/17 at 2200, Last dose on Sat08/27/17 at 1600, Routine Continuous Medication Order 08/26/2017 08/27/2017 08/28/2017 lactated Ringers infusion (CANCELED) 0824 (New Bag - P rovider: Marcelo Gallegos RN) 75 mL/hr, at 75 mL/hr, Intravenous, CONT INUOUS, Starting 08/25/17 at 0645, Until Sat08/26/17 at 1628 oxytocin (PITOCIN) 30 units in sodium chloride 0.9% 50 0 mL infusion (CANCELED) 0200 (Rate/Dose Change - Provider: Lilia Harper RN)0256 (Rate/Dose Change - Provider: Lilia Harper RN)0411 (Rate/Dose Change - Provider: Lilia Harper, RORY)0440 (Rate/Dose Change - Provider: Khloe Aleman RN) 1-30 marlyn-units/min (1-30 mL/hr), Intra venous, at 1-30 mL/hr, CONTINUOUS, Starting 08/25/17 at 0645, Until Sat08/26/17 at 1628, Piggyback into Lactated Ringers; Start at 2 milliunits/minute and ad 0816 (Rate/Dose Change - Provider: Marcelo Gallegos RN)1009 (Rate/Dose Change - Provider: Marcelo Gallegos RN)1130 (Rate/Dose Change - Provider: Marcelo Gallegos RN)1341 (Rate/Dose Change - Provider: Mariza Almanza RN) just by 2 milliunits/minute every 30 min utes to achieve contractions that are every 2-3 minutes, lasting 60-90 seconds with 1 minute resting tone between contractions palpating strong. Oxytocin may not be initiated until: - 1 hour after Cervi dil is removed - 4 hours after last misoprostol dose is given, Routine PRN Medication Order 08/26/2017 08/27/2017 08/28/2017 acetaminophen (TYLENOL) tablet 650 mg 1731 (Given - Pr ovider: Marcelo Gallegos RN) 0208 (Given - Provider: Barby lofton RN)0820 (Given - Provider: Jamia Decker)1400 (Given - Provider: Destiny Burgos RN)2134 (Given - Provider: Barby Solo RN) 0535 (Given - Provider: Barby lofton RN) 650 mg, Oral, EVERY 6 HOURS PRN, Startin g Sat08/26/17 at 1652, Until Sat08/28/17 at 1507, Pain, Maximum dose of acetaminophen is 4000 mg from all sources in 24 hours., Routine glycerin-witch tessa (TUCKS) 12.5-50 % pads Topical (Top), 4 TIMES DAILY PRN, Irrita tion, perineal pain, Starting Sat08/26/17 at 1628 nalbuphine (NUBAIN) injection 1 mg 1 mg, Intravenous, EVERY 15 MIN PRN, Sta rting Sat08/26/17 at 1628, Until Sat08/28/17 at 1507, Itching, If not effective, may repeat once after 30 minutes with each 4 hour dosing interval. Do not excee d 10 mg in 24 hours, Recovery (Recovery-Hospital Unit), Routine ondansetron (ZOFRAN) injection 4 mg 4 mg, Intravenous, EVERY 8 HOURS PRN, St arting Sat08/26/17 at 1653, Until Sat08/28/17 at 1507, Nausea, Routine oxyCODONE (ROXICODONE) immediate release tablet 5-10 m g 1635 (Given - Provider: Marcelo Gallegos RN)2151 (Given - Provider: Barby Solo RN) 0208 (Given - Provider: Barby Solo RN)0821 (Given - Provider: Jamia Decker)1306 (Given - Provider: Destiny Burgos, RORY)1742 (Given - Provider: Destiny Burgos RN)2134 (Given - Provider: Barby Solo RN) 0110 (Given - Provider: Barby Solo RN)0535 (Given - Provider: Barby Solo RN)0936 (Given - Provider: Ledy Mauro RN) 5-10 mg, Oral, EVERY 4 HOURS PRN, Starti ng Sat08/26/17 at 1628, Until Sat08/28/17 at 1507, Pain, Severe pain (7-10), 5mg for 3-6/10 and 10mg for 7-10/10, Routine polyethylene glycol (MIRALAX) packet 17 g 0823 (Given - Provider: Jamia Decker) 17 g, Oral, DAILY PRN, Starting 08/08 at 1628, Until Sat08/28/17 at 1507, Constipation, Routine simethicone (MYLICON) chewable tablet 80 mg 80 mg, Oral, 4 TIMES DAILY PRN, Starting Sat08/26/17 at 1628, Until Sat08/28/17 at 1507, Cramping, gas pain, Routine documented in this encounter Care Teams Manager Business Continuity Relationship Specialty Start Date End Date Елена Coates MD PCP - General 08/29/10 [facility] [address] [place] [address] documented as of this encounter
--- OUTSIDE RECORDS SUMMARY | 2022-05-25 01:41 | XMS_ITS | Encounter Summary ---
:1975 Author Organization [facility] [place] [address] Care Team Providers Name Role Phone Елена Coates MD Primary Care Provider Reason for Visit Reason Comments Skin Check Encounter Details Date Type Department Care Team Description 04/26/2015 Office Visit Dermatology at [facility], Dmitriy Mercedes, Telogen effluvium; Mini TERRELL Nevus [address] [facility] [address] [facility] Rodolfo B DERMATOLOGY [place], [place] [id number] [phone] Social History Tobacco Use Types Packs/Day Years Used Date Former Smoker Alcohol Use Standard Drinks/Week Comments No 0 (1 standard drink = 0.6 oz pure alcoho l) Sex Assigned at Date Recorded Not on file documented as of this encounter Patient Instructions Patient InstructionsDiane Aceves LPN - 04/26/2015 10:13 AM EDT Images from the original note were not included. [facility] Moles: After Your Visit Your Care Instructions Moles are skin growths made up of cells that produce color (pigment). A mole can appear anywhere on the skin, alone or in groups. Most people get a few moles during their first 20 years of life. They are usually brown in color but can be blue, black, or flesh-colored. Most moles are harmless and do not cause pain or other symptoms, unless you rub them or they bump against something. You usually do not need treatment for moles. But some can turn into cancer. Talk to your doctor if amole bleeds, itches, garcia, or changes size or color. Also let your doctor know if you get a new mole. Make sure to wear sunscreen and other sun protection every day to help prevent skin cancer. Follow-up care is a molina part of your treatment and safety. Be sure to make and go to all appointments, and call your doctor if you are having problems. It???s also a good idea to know your test resultsand keep a list of the medicines you take. How can you care for yourself at home? ?? Check all the skin on your body once a month for skin growths or other changes, such as in the color and feel of the skin. ?? claim clinician front of a full-length mirror. Look carefully at the front and back of your body. Then look at your right and left sides with your arms raised. ?? Bend your elbows and look carefully at your forearms, the back of your upper arms, and your palms. ?? Look at your feet, the bottoms of your feet, and the spaces between your toes. ?? Use a hand mirror to look at the back of your legs, the back of your neck, and your back, rear end (buttocks), and genital area. Part the hair on your head to look at your scalp. ?? If you see a change in a skin growth, contact your doctor. Look for: ?? A mole that bleeds. ?? A fast-growing mole. ?? A scaly or crusted growth on the skin. ?? A sore that will not heal. To prevent skin cancer ?? Always wear sunscreen on exposed skin. Make sure the sunscreen blocks ultraviolet rays (both UVA and UVB) and has a sun protection factor (SPF) of at least 15. Use it every day, even when it is cloudy. Some doctors may recommend a higher SPF, such as 30. ?? Wear a wide-brimmed hat and long sleeves and pants if you are going to be outdoors for very long. ?? Avoid the sun between 10 a.m. and 4 p.m., which is the peak time for the sun's ultraviolet rays. ?? Avoid sunburns, tanning booths, and sunlamps. ?? Be sure to protect children from the sun. Sunburns in childhood damage the skin and increase the risk of cancer. When should you call for help? Watch closely for changes in your health, and be sure to contact your doctor if: ?? A mole looks different than it did before. It may have changed in size, color, shape, or the way it looks. ?? You have a new mole. ?? You have a new pimple or skin growth that does not go away. Where can you learn more? Visit our health information library at [email or web address] You can also view health information on [employer], your personal patient account. Log in or sign up today. Enter M489 in the search box to learn more about Moles: After Your Visit. ?? [id number] [employer]. Care instructions adapted under license by [facility]. This care instruction is for use with your licensed healthcare professional. If you have questionsabout a medical condition or this instruction, always ask your healthcare professional. [employer] disclaims any warranty or liability for your use of this information. Content Version: 10.4.369407; Current as of: December 16, 2013 documented in this encounter Progress Notes Dmitriy eBcker MD - 04/26/2015 10:39 AM EDT Problem: 1. Toenail changes. 2. Mole check. 3. Hair loss. Sisi follows up and is now 39. In September she had to terminate a because of placental issues, and the baby was delivered by and did not survive. Just two weeks ago she started noticing increased hair loss, and she was wondering if this could be related to her issues. She has had a child five years ago and noted hair shedding about five months after delivery of that child, and it was a full-term, healthy baby. She would also like me to check a mole on her skin. Also she has had issues with ridges developing on her toenails in the hallux of either foot. She relates this to wearing clogs that fit tightly over her toenails, particularly over the hallux, and cause them to be sore. 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. Physical examination reveals a pleasant 39-year-old woman who has benign melanocytic nevi on her back, on the left breast, and in between the first and second toe web space. She has ridges running horizontally across the nail plates at regular intervals of roughly about 1 cm apart on both the left and right hallux. Examination of the scalp reveals a negative hair pull with healthy-appearing scalp, no areas of punched out hair loss, and no dermatitis. Assessment and Plan: 1. Telogen effluvium. a. Seemingly late to explain by or emotional loss regarding this. b. The patient has not been on any diet and is not a vegetarian. In discussing it with her, it sounds like she is getting enough protein in her regular diet. c. Reassured patient and expect that hair loss will correct itself spontaneously and that she will not have any significant hair loss progression. 2. Benign nevi. a. Patient reassured about benign nevi. 3. Hallux toe nail changes. a. Likely related to tight fitting clogs. b. Patient will get rid of these. c. Expect normalization over time. Note: Half an hour spent with the patient, more than half spent in counseling. COPY: Елнеа Coates M.D. documented in this encounter Plan of Treatment Not on filedocumented as of this encounter Visit Diagnoses Diagnosis Telogen effluvium Nevus Benign neoplasm of skin, site unspecifie d documented in this encounter Care Teams Career Services Manager Relationship Specialty Start Date End Date Елена Coates MD PCP - General 08/29/10 [address] [place] [address] documented as of this encounter
--- OUTSIDE RECORDS SUMMARY | 2022-05-25 01:41 | XMS_ITS | Encounter Summary ---
:1975 Author Organization [facility] [place] [address] Care Team Providers Name Role Phone Елена Coates MD Primary Care Provider Encounter Details Date Type Department Care Team Description 07/13/2014 Hospital Encounter Laboratory Nathaniel Mason Maternal age 37+, [facility] MD Amanda multigravida, [facility] antepartum, [facility] [address] trimester [id number] OBSTETRICS & [phone] [place] [address] Social History Tobacco Use Types Packs/Day Years Used Date Former Smoker Alcohol Use Standard Drinks/Week Comments No 0 (1 standard drink = 0.6 oz pure alcoho l) Sex Assigned at Date Recorded Not on file documented as of this encounter Medications at Time of Discharge Medication Sig Dispensed Refills Start Date End Date Zvvaevgj-Om-Anu-Fe-FA Take by mouth. 0 05/22/2019 Tablet documented as of this encounter Plan of Treatment Not on filedocumented as of this encounter Procedures Procedure Name Priority Date/Time Associated Comments Diagnosis MISCELLANEOUS LAB Routine 07/13/2014 10:09 Maternal age 37+, R esults for this REQUEST AM EDT multigravida, procedure are in antepartum, first the result s trimester section. documented in this encounter Results Miscellaneous Lab request (07/13/2014 10:09 AM EDT) [facility] Method Time Signature [facility] Lab Request CERNER Result received in [facility] lab. Specimen Anatomical Collection Method Collection Time Receive d Time (Source) Location / / Volume Laterality Blood specimen 07/13/2014 10: 4 (specimen) AM EDT 11:59 AM EDT E Amanda Mason MD HEMATOLOGY ORDERABLES Performing Organization Address City/State/[place] [address] [facility] documented in this encounter Visit Diagnoses Diagnosis Maternal age 35+, multigravida, antepart um, first trimester documented in this encounter Care Teams Assistant Grocery Relationship Specialty Start Date End Date Елена Coates MD PCP - General 08/29/10 [address] [place] [address] documented as of this encounter
--- OUTSIDE RECORDS SUMMARY | 2022-05-25 01:41 | XMS_ITS | Encounter Summary ---
:1975 Author Organization [facility] [place] [address] Care Team Providers Name Role Phone Елена Coates MD Primary Care Provider Reason for Visit Reason Comments Routine Visit Encounter Details Date Type Department Care Team Description 06/04/2017 Routine Obstetrics and Carmen Rodríguez APRN [place]: 28w0d Gynecology at [facility] [address]RICS & [place] [address] GYNECOLOGY [phone] [place], [place] [address] (Wo rk) Social History Tobacco Use Types Packs/Day Years Used Date Former Smoker Cigarettes Quit: 10/07/19 Smokeless Tobacco: Never Used Alcohol Use Standard Drinks/Week Comments No 0 (1 standard drink = 0.6 oz pure alcoho l) Sex Assigned at Date Recorded Not on file documented as of this encounter Last Filed Vital Signs Vital Sign Reading Time Taken Comments Blood Pressure 130/78 06/04/2017 3:54 PM EDT Pulse - - Temperature - - Respiratory Rate - - Oxygen Saturation - - Inhaled Oxygen Concentration - - Weight 58 kg (127 lb 12.8 oz) 06/04/2017 3:54 PM EDT Height - - Body Mass Index 22.46 01/22/2017 10:20 AM EDT documented in this encounter Progress Notes Shanice Schofield LPN - 06/04/2017 4:00 PM EDT The patient denies travel by her or her partner to an area with endemic Zika infection including [place]. T. 98.4, P-101, 02-100 Carmen Rodríguez APRN - 06/04/2017 4:00 PM EDT No cramps, bleeding or LOF. Drank glucose today. Last night BP 100/65. documented in this encounter Miscellaneous Notes Addendum Note - Margarita Alford - 06/04/2017 4:44 PM EDT Addended by: MARGARITA ALFORD on: 06/04/2017 04:44 PM Modules accepted: Orders documented in this encounter Plan of Treatment Not on filedocumented as of this encounter Procedures Procedure Name Priority Date/Time Associated Comments Diagnosis GLUCOSE 1 HOUR POST Routine 06/04/2017 4:55 PM Previous azeem an Results for this PRANDIAL EDT section procedure are i n the results section. HEMOGLOBIN AND Routine 06/04/2017 4:55 PM Previous Re sults for this HEMATOCRIT, BLOOD EDT section procedure are in the results section. documented in this encounter Results (ABNORMAL) Hemoglobin and Hematocrit, blood (06/04/2017 4:55 PM EDT) P athologist Signature Hemoglobin 12.4 11.7 - [facility] 15.5 gm/dL [facility] Hematocrit 33.3 (L) 35.7 - [facility] 45.8 % [facility] Specimen Anatomical Collection Method Collection Time Receive d Time (Source) Location / / Volume Laterality Blood specimen 06/04/2017 4:55 PM 017 5:16 (specimen) EDT PM EDT Resulting Agency Comment Spec In Lab Carmen Rodríguez APRN HEMATOLOGY ORDERABLES Performing Organization Address City/State/ZIP Code Phon e Number [place] [phone] Glucose 1 Hour Post Prandial (06/04/2017 4:55 PM EDT) P athologist Signature Glucose, 1Hr 151 mg/dL [facility] Specimen Anatomical Collection Method Collection Time Receive d Time (Source) Location / / Volume Laterality Blood specimen 06/04/2017 4:55 PM 017 5:15 (specimen) EDT PM EDT Resulting Agency Comment Spec In Lab Carmen Rodríguez APRN CHEMISTRY ORDERABLES Performing Organization Address City/State/[place] [address] documented in this encounter Visit Diagnoses Diagnosis AMA (advanced maternal age) multigravida 37+, second trimester Previous section Other postprocedural status documented in this encounter Care Teams Staff Counselor Relationship Specialty Start Date End Date Елена Coates MD PCP - General 08/29/10 [address] [place] [address] documented as of this encounter
--- OUTSIDE RECORDS SUMMARY | 2022-05-25 01:41 | XMS_ITS | Encounter Summary ---
:1975 Author Organization [facility] [place] [address] Care Team Providers Name Role Phone Елена Coates MD Primary Care Provider Encounter Details Date Type Department Care Team Description 08/21/2017 Routine Obstetrics and Carmen Rodríguez APRN [place]: 39w1d Gynecology at [facility] [address] [place] & [place] [address] GYNECOLOGY [phone] [place] [address] (Wo rk) Social History Tobacco Use Types Packs/Day Years Used Date Former Smoker Cigarettes Quit: 10/07/19 00 Smokeless Tobacco: Never Used Alcohol Use Standard Drinks/Week Comments No 0 (1 standard drink = 0.6 oz pure alcoho l) Sex Assigned at Date Recorded Not on file documented as of this encounter Last Filed Vital Signs Vital Sign Reading Time Taken Comments Blood Pressure 128/74 08/21/2017 9:08 AM EST Pulse - - Temperature - - Respiratory Rate - - Oxygen Saturation - - Inhaled Oxygen Concentration - - Weight 61.1 kg (134 lb 11.2 oz) 08/21/2017 9:08 AM EST Height - - Body Mass Index 23.67 01/22/2017 10:20 AM EDT documented in this encounter Progress Notes Carmen Rodríguez APRN - 08/21/2017 9:40 AM EST No bleeding or LOF. Back achy and low abd, some BH, more tired, not sleeping as well. Cervical exam performed. Attempt made to sweep membrane. NST next wk for post dates documented in this encounter Plan of Treatment Not on filedocumented as of this encounter Visit Diagnoses Diagnosis AMA (advanced maternal age) multigravida 37+, third trimester documented in this encounter Care Teams Manager Of Software Development Relationship Specialty Start Date End Date Елена Coates MD PCP - General 08/29/10 [address] [place] [address] documented as of this encounter
--- OUTSIDE RECORDS SUMMARY | 2022-05-25 01:41 | XMS_ITS | Encounter Summary ---
:1975 Author Organization [facility] [place] [address] Care Team Providers Name Role Phone Елена Coates MD Primary Care Provider Reason for Visit Reason Comments Routine Visit f/u dating u/s Encounter Details Date Type Department Care Team Description 02/12/2017 Routine Obstetrics and Carmen Rodríguez APRN [place]: 12w0d Gynecology at [facility] [address] [place]RICS & [place] [address] GYNECOLOGY [phone] [place], [place] [address] (Wo rk) Social History Tobacco [...] Sign Reading Time Taken Comments Blood Pressure 137/86 02/12/2017 10:25 AM EDT Pulse - - Temperature - - Respiratory Rate - - Oxygen Saturation - - Inhaled Oxygen Concentration - - Weight 53 kg (116 lb 12.8 oz) 02/12/2017 10:25 AM EDT Height - - Body Mass Index 20.53 01/22/2017 10:20 AM EDT documented in this encounter Progress Notes Juni Arshad LNA - 02/12/2017 10:40 AM EDT Skin to Skin Contact and an Early Start to pamphlet given to patient along with the Depression and Nutrition Screens. The importance of the materials was discussed and the patient was encouraged to read the information and direct questions to the provider. Carmen Rodríguez APRN - 02/12/2017 10:40 AM EDT US for dating and viability; all matches. Her BP at home is 106/66-118/80; this is over a 2 month period. Urine for prot/cr obtained today. Has genetic screening appt after this and will do blood work too. No bleeding, cramping or LOF. documented in this encounter Plan of Treatment Not on filedocumented as of this encounter Visit Diagnoses Diagnosis Previous section Other postprocedural status AMA (advanced maternal age) multigravida 35+, first trimester documented in this encounter Care Teams Esl Professor Relationship Specialty Start Date End Date Елена Coates MD PCP - General 08/29/10 [address] [place] [address] documented as of this encounter
--- OUTSIDE RECORDS SUMMARY | 2022-05-25 01:41 | XMS_ITS | Encounter Summary ---
:1975 Author Organization [facility] [place] [address] Care Team Providers Name Role Phone Елена Coates MD Primary Care Provider Encounter Details Date Type Department Care Team Description 09/01/2014 Hospital Encounter Ultrasound at [facility], DR L[facility] Eliana Whittington MD [address] [place] [address] [place] [address] Social History Tobacco Use Types Packs/Day Years Used Date Former Smoker Alcohol Use Standard Drinks/Week Comments No 0 (1 standard drink = 0.6 oz pure alcoho l) Sex Assigned at Date Recorded Not on file documented as of this encounter Medications at Time of Discharge Medication Sig Dispensed Refills Start Date End Date Ngzawzum-Xs-Oky-Fe-FA Take by mouth. 0 05/22/2019 Tablet documented as of this encounter Plan of Treatment Not on filedocumented as of this encounter Procedures Procedure Name Priority Date/Time Associated Comments Diagnosis US OB DETAILED Routine 09/01/2014 2:41 PM Results for this MORPHOLOGY EST procedure are i n the results section. documented in this encounter Results US OB Targeted Morphology (09/01/2014 2:41 PM EST) Anatomical Region Laterality Modality Pelvis, Abdomen Ultrasound Specimen (Source) Anatomical Collection Method Collection Time Re ceived Time Location / / Volume Laterality 09/01/2014 2:41 PM EST Narrative 09/01/2014 3:10 PM EST OBSTETRICS REPORT ?(Signed Final 09/01/2014 03:09 ? pm) Patient Info ID #: ? [id number] ?: ??[birth year] (38 yrs) Name: ? ELISEOFABIOLA RUIZ ? Visit Date: 09/01/2014 02:31 pm Performed By Performed By: ?Kamilah Ramos RDMS Attending: ? Nathaniel Mason MD ??R laurenca Referred By: ? ELIANA SHARP MD Service(s) Provided ??[facility] - Targeted Morphology - Genetics - ? [id number] ??[id number] Indications ??POSITIVE AFP FOR NTD ??01/25/14 OB History Blood Type: ?? A+ ? Height: ??5' 3 ?? Weight: ?? 113 ? BMI: ??20.01 Evaluation Num Of Fetuses: ? 1 Heart ? 152 Rate(bpm): Cardiac Activity: ?? Observed, normal r hythm Presentation: ? Cephalic Placenta: ? Fundal Posteri or Right Lateral P. Cord Insertion: ??Within Normal Limi ts Amniotic Fluid CONSTANZA FV: ?Subjectively decreased Comment: ?Large subchorionic hemorr miguelito/partial placental ? abruption visualized, measuring 8.8 x 6.7 x 3.7 cm. -------- Biometry -------- BPD: ?49.2 ??mm ?G. Age: ?? 20w 6d OFD: ?60.2 ??mm HC: ?175.4 ??mm ?G. Age: ?? 20w 0d AC: ?156.1 ??mm ?G. Age: ?? 20w 6d FL: ? 32.1 ??mm ?G. Age: ?? 20w 0d HUM: ?29.7 ??mm ?G. Age: ?? 19w 5d CER: ?20.4 ??mm ?G. Age: ?? 19w 3d NFT: ? 3.4 ??mm NB: ?4.4 ??mm LV: ?7.1 ??mm CM: ?3.4 ??mm CI: ?81.7 ??% ? 70 - 86 FL/HC: ? 18.3 ??% ? 16.1 - 18.3 HC/AC: ? 1.12 ?1.09 - 1.39 FL/BPD: ?65.2 ??% FL/AC: ? 20.6 ??% ? - Est. FW: ? 351 ?? gm ?? 0 lb 12 oz Gestational Age LMP: ? 19w 1d ?Date : ??04/20/14 ? SREEKANTH: ?? 01/25/15 U/S Today: ? 20w 3d ?SREEKANTH: ?? 01/16/15 Best: ?19w 1d ?? Det. By: ??LMP ??(04/20/14) ?SREEKANTH: ?? 01/25/15 Targeted Anatomy Central Nervous System Calvarium: ?Within Norm al Limits Intracranial: ? Within Normal Limits Lat. Ventricles: ?Within Normal Limits Cerebellum: ? Within Karla l Limits Choroid Plexus: ? Within Normal Limits Cisterna Magna: ? Within Normal Limits Spine Cervical: ? Visualized Thoracic: ? Visualized Lumbar: ? Visualized Sacral: ? Visualized Head/Neck Face: ? Within No rmal Limits Nuchal Fold: ?Within Karla l Limits Eyes: ? Visualize d Profile: ?Visualized Thorax Four Chamber: ? Within Normal Limits Cardiac Motion: ? Normal Rhythm R Outflow Tract: ?Visualized L Outflow Tract: ?Visualized Aortic Arch: ?Visualized Ductal Arch: ?Visualized Cardiac Toivola: ? Visualized 3 Vessel View: ?Visualized Diaphragm: ?Visualized Abdomen Ventral Wall: ? Visualized Stomach: ?Visualized Lt Kidney: ?Visualized Rt Kidney: ?Visualized Bladder: ?Visualized Bowel: ?Abnormal - See disc Extremities Lt Humerus: ? Visualized Rt Humerus: ? Visualized Lt Forearm: ? Visualized Rt Forearm: ? Visualized Lt Hand: ?Visualized Rt Hand: ?Visualized Lt Femur: ? Visualized Rt Femur: ? Visualized Lt Lower Leg: ? Visualized Rt Lower Leg: ? Visualized Lt Foot: ?Visualized Rt Foot: ?Visualized Other Umbilical Cord: ? 3 vessel cord Cord Insertion: ? WIthin Normal Limits Comment: ? Nasal Bone: Visualize d Doppler - Uterine Artery Right S/D Ratio: ? RI: ?PI: ?%Tile Left S/D Ratio: ?RI: ?PI: ?%Tile Cervix Uterus Adnexa Left Ovary Not visualized Right Ovary Not visualized Impression 2nd Trimester - Targeted Morphology- Romero mmary Single intrauterine with a ge stational age of 19w 1d based on LMP. Composite age based on the current ultr asound alone is 20w 3d. Current growth parameters are consisten t indicating normal growth. Amniotic fluid volume is subjectively d ecreased. Detailed anatomic evaluation was performed. Dilated bowel loop visualized. ?? No st ructural abnormalities are noted. Large subchorionic hemorrhage visualize d, measuring 8.8 x 6.7 x 3.7 cm. I ??viewed the images and agree with tereza rosen above interpretation. ?Nathaniel posadas MD Electronically Signed Final Report ?? 03:09 pm Procedure Note Nathaniel Mason MD - 09/01/2014For matting of this note might be different from the original. OBSTETRICS REPORT (Signed Final 014 03:09 pm) Patient Info ID #: [id number] : [birth year] (38 y rs) Name: ELISEO RUIZ Visit Date: 2013 02:31 pm Performed By Performed By: Kamilah Ramos RDMS Attending: Nathaniel Mason MD Referred By: ELIANA SHARP MD Service(s) Provided [facility] - Targeted Morphology - Genetics - [id number] Indications POSITIVE AFP FOR NTD 01/25/14 OB History Blood Type: A+ Height: 5'3 Weight: 113 BMI: 20.01 Evaluation Num Of Fetuses: 1 Heart 152 Rate(bpm): Cardiac Activity: Observed, normal rhyt hm Presentation: Cephalic Placenta: Fundal Posterior Right Latera l P. Cord Insertion: Within Normal Limits Amniotic Fluid CONSTANZA FV: Subjectively decreased Comment: Large subchorionic hemorrhage/ partial placental abruption visualized, measuring 8.8 x 6 .7 x 3.7 cm. -------- Biometry -------- BPD: 49.2 mm G. Age: 20w 6d OFD: 60.2 mm HC: 175.4 mm G. Age: 20w 0d AC: 156.1 mm G. Age: 20w 6d FL: 32.1 mm G. Age: 20w 0d HUM: 29.7 mm G. Age: 19w 5d CER: 20.4 mm G. Age: 19w 3d NFT: 3.4 mm NB: 4.4 mm LV: 7.1 mm CM: 3.4 mm CI: 81.7 % 70 - 86 FL/HC: 18.3 % 16.1 - 18.3 HC/AC: 1.12 1.09 - 1.39 FL/BPD: 65.2 % FL/AC: 20.6 % 20 - 24 Est. FW: 351 gm 0 lb 12 oz Gestational Age LMP: 19w 1d Date: 04/20/14 SREEKANTH: 5 U/S Today: 20w 3d SREEKANTH: 01/16/15 Best: 19w 1d Det. By: LMP (04/20/14) ED Targeted Anatomy Central Nervous System Calvarium: Within Normal Limits Intracranial: Within Normal Limits Lat. Ventricles: Within Normal Limits Cerebellum: Within Normal Limits Choroid Plexus: Within Normal Limits Cisterna Magna: Within Normal Limits Spine Cervical: Visualized Thoracic: Visualized Lumbar: Visualized Sacral: Visualized Head/Neck Face: Within Normal Limits Nuchal Fold: Within Normal Limits Eyes: Visualized Profile: Visualized Thorax Four Chamber: Within Normal Limits Cardiac Motion: Normal Rhythm R Outflow Tract: Visualized L Outflow Tract: Visualized Aortic Arch: Visualized Ductal Arch: Visualized Cardiac Toivola: Visualized 3 Vessel View: Visualized Diaphragm: Visualized Abdomen Ventral Wall: Visualized Stomach: Visualized Lt Kidney: Visualized Rt Kidney: Visualized Bladder: Visualized Bowel: Abnormal - See disc Extremities Lt Humerus: Visualized Rt Humerus: Visualized Lt Forearm: Visualized Rt Forearm: Visualized Lt Hand: Visualized Rt Hand: Visualized Lt Femur: Visualized Rt Femur: Visualized Lt Lower Leg: Visualized Rt Lower Leg: Visualized Lt Foot: Visualized Rt Foot: Visualized Other Umbilical Cord: 3 vessel cord Cord Insertion: WIthin Normal Limits Comment: Nasal Bone: Visualized Doppler - Uterine Artery Right S/D Ratio: RI: PI: %Tile Left S/D Ratio: RI: PI: %Tile Cervix Uterus Adnexa Left Ovary Not visualized Right Ovary Not visualized Impression 2nd Trimester - Targeted Morphology- Romero mmary Single intrauterine with a ge stational age of 19w 1d based on LMP. Composite age based on the current ultr asound alone is 20w 3d. Current growth parameters are consisten t indicating normal growth. Amniotic fluid volume is subjectively d ecreased. Detailed anatomic evaluation was performed. Dilated bowel loop visualized. No struc tural abnormalities are noted. Large subchorionic hemorrhage visualize d, measuring 8.8 x 6.7 x 3.7 cm. I viewed the images and agree with the above interpretation. Nathaniel Mason MD Electronically Signed Final Report 09/01 03:09 pm Eliana Sharp MD IMG US OB ORDERABLES documented in this encounter Visit Diagnoses Not on filedocumented in this encounter Care Teams Customer Service Voice Relationship Specialty Start Date End Date Елена Coates MD PCP - General 08/29/10 [address] [place] [address] documented as of this encounter
--- OUTSIDE RECORDS SUMMARY | 2022-05-25 01:41 | XMS_ITS | Encounter Summary ---
:1975 Author Organization [facility] [place] [address] Care Team Providers Name Role Phone Елена Coates MD Primary Care Provider Reason for Visit Reason Onset Date Comments Results 06/07/2017 Encounter Details Date Type Department Care Team Description 06/07/2017 Telephone Obstetrics and Gynecology at [facility], Results [facility] [place] [address] Social History Tobacco Use Types Packs/Day Years Used Date Former Smoker Cigarettes Quit: 10/07/19 Smokeless Tobacco: Never Used Alcohol Use Standard Drinks/Week Comments No 0 (1 standard drink = 0.6 oz pure alcoho l) Sex Assigned at Date Recorded Not on file documented as of this encounter Miscellaneous Notes Telephone Encounter - Marta Odell RN - 06/07/2017 11:31 AM EDT TELEPHONE NOTE Caller: Marta Odell RN Reason for call: Patient called to give results of three hour glucose testing. Plan/Instructions: Fasting level was 90,1hour-153, 2 hour -156, and 3 hour-112. The 2 hour test was off by 1 point it should be <155. Advised patient I will send a messge to provider to see if she needs a follow up. documented in this encounter Plan of Treatment Not on filedocumented as of this encounter Procedures Procedure Name Priority Date/Time Associated Diagnosis Comme nts EXTERNAL LAB RESULTS Routine 06/06/2017 Results for this procedure are i n the results section . documented in this encounter Results (ABNORMAL) External Lab Results (06/06/2017) Analysis Performed At Patho logist Time Signature Glucose 90 Fasting (External Lab) Glucose 1 hour 153 (External Lab) Glucose 2 hour 156 (EXTERNAL/ ABN) Glucose 3 hour 112 (External Lab) Specimen (Source) Anatomical Location Collection Method / Collectio n Time Received Time / Laterality Volume 06/06/2017 Carmen Carlin Rodríguez APRN CHEMISTRY ORDERABLES documented in this encounter Visit Diagnoses Not on filedocumented in this encounter Care Teams Triage Clinician Relationship Specialty Start Date End Date Елена Coates MD PCP - General 08/29/10 [address] [place] [address] documented as of this encounter
--- OUTSIDE RECORDS SUMMARY | 2022-05-25 01:41 | XMS_ITS | Encounter Summary ---
:1975 Author Organization [place] [address] Care Team Providers Name Role Phone Елена Coates MD Primary Care Provider Encounter Details Date Type Department Care Team Description 11/19/2005 Orders Only Radiology and Cardiology Apd Conversion, Results Results Provider, [address] [place] [phone] Social History Tobacco Use Types Packs/Day Years Used Date Never Assessed Sex Assigned at Date Recorded Not on file documented as of this encounter Plan of Treatment Not on filedocumented as of this encounter Procedures Procedure Name Priority Date/Time Associated Diagnosis Comme nts CYTOPATHOLOGY Routine 11/19/2005 Results for th is GYNECOLOGICAL procedure are in the results section . documented in this encounter Results (ABNORMAL) Cytopathology Gynecological (11/19/2005) [facility] Method Time Signature Brass Pickler Cytology Please see [facility] Final Report Bere Verma CONVERSION legacy report (External Lab) Specimen (Source) Anatomical Location Collection Method / Collectio n Time Received Time / Laterality Volume 11/19/2005 Narrative [facility]ERE [facility] CONVERSION - 11/19/2005 Please see [facility] Legacy report Results Provider Apd Conversion PATHOLOGY/CYTOLOGY ORDERABLES Performing Organization Address City/State/ZIP Code Phon e Number [facility] CONVERSION [address] [place], [place] [address] [facility] CONVERSION documented in this encounter Visit Diagnoses Not on filedocumented in this encounter Care Teams Factory Manager Relationship Specialty Start Date End Date Елена Coates MD PCP - General 08/29/10 [address] [place] [address] documented as of this encounter
--- OUTSIDE RECORDS SUMMARY | 2022-05-25 01:41 | XMS_ITS | Encounter Summary ---
:1975 Author Organization [facility] [place] [address] Care Team Providers Name Role Phone Елена Coates MD Primary Care Provider Reason for Visit Auth/Cert Specialty Diagnoses / Procedures Referred By Contact Refer red To Contact Diagnoses PROM (premature rupture of membranes) Procedures @ DELIVERY ([facility] 16.13) Referral ID Status Reason Start Date Expiration Date Visits Requ ested Visits Authorized [id number] 1 1 Encounter Details Date Type Department Care Team Description 08/26/2017 Anesthesia Event Birthing [facility] Sravanthi Phillips MD [facility] [place] [id number] [facility] Rebeca Petit MD [facility] [address] [facility] [place] [address] Anesthesia Record Procedure Summary Procedure Name Responsible Anesthesia Start Anesthesia Stop Time Anesthesiologist Time @ DELIVERY Sravanthi Roth MD 08/26/17 1440 08/26/17 1601 ([facility] 16.13) (N/A Abdomen) Events Date Time Event Comment 08/26/2017 0015 AN Verify 0030 Labor Neuraxial 1439 AN Verify 1440 Start 1440 An Start Data 1444 L Uterine Displacement 1445 Anesthesia Ready 1500 Skin Incision 1514 Uterine Incision 1515 Baby Delivered 1601 an stop data 1601 Recovery or ICU Handoff Patient care was transferred to the destination unit staff after review of the patient's medica l history, current anesthetic/surgi ct status and plan, according to the Provider Handoff Checklist. 1601 Stop 08/27/2017 1922 Name Total Lidocaine 1% 3 mL Lidocaine 1.5% with Epi 1:200K 3 mL PHENYLephrine INF 1,900 mcg Chloroprocaine 3% 24.5 mL Oxytocin INF 20 mL Oxytocin INF 358.33 mL Morphine(Neuraxial) 6 mg Lactated Ringers 1,200 mL Agents Name O2 Air N2O Blood No blood administrations on file. Lines, Drains, and Airways Type Details Placement Removal (RETIRED By [facility]) 08/26/17; 1515; low 08/26/17 1515 by Incision transverse Gwendolyn Jason, RN PIV 08/25/17; 0500; 08/25/17 0500 by Glenn, 08/28/17 0830 by [id number] RORY Rashid Karlyce A, catheter system; 18 RN gauge; cephalic vein (lateral side of arm), right; site symptomatic; 08/28/17; 0830 Epidural 08/26/17; 0047 (created 08/26/17 0047 by [id number] by via procedure Rebeca Petit MD Jorgenson, Sara A, documentation); RN 08/26/17; 1600 Urethral Catheter 08/26/17; 0125; 08/26/17 0125 by 08/27/17 0830 by Physician order; Lilia Harper RN Frederic k, April L, Prolonged RN Immobilization; indwelling single lumen catheter; 100% silicone; 14; inserted at this facility; 1; 10; other (see comments); leg bag to dependent drainage; urethral catheter removed, per protocol/policy; catheter placed after epidural placement and with epidural effect; 08/27/17; 0830 documented in this encounter Social History Tobacco Use Types Packs/Day Years Used Date Former Smoker Cigarettes Quit: 10/07/19 00 Smokeless Tobacco: Never Used Alcohol Use Standard Drinks/Week Comments No 0 (1 standard drink = 0.6 oz pure alcoho l) Sex Assigned at Date Recorded Not on file documented as of this encounter OR Notes Anesthesia Postprocedure Evaluation - Rebeca Petit MD - 08/27/2017 2:56 PM EST [facility] Department of Anesthesiology Post-procedure Note Patient: Sisi Ruiz Procedure Summary Date Anesthesia Start Anesthesia Stop Room / Location 08/26/17 1440 1601 [facility] OR [facility] / [facility] Procedure Diagnosis Surgeon Responsible Provider @ DELIVERY ([facility] 16.13) (N/A Abdomen) No diagnosis on file. Amira Palmer MD Foreman, Lily A, MD All Anesthesia Providers: Anesthesiologist: Sravanthi Roth MD Lead Military Analyst: Jayy Rodriguez MD Most Recent Vitals: 08/27/17 0834 BP: 143/85 Pulse: 94 Resp: Temp: SpO2: Pain Patient Location: Floor Level of Consciousness: Awake and Alert Pain Management: Satisfactory Analgesia PONV: None Cardiovascular Status: At Baseline Respiratory Status: At Baseline Postoperative Fluid Status: Intravascular EUvolemia Possible Anesthetic Complications: NONE apparent at time of evaluation Final Primary Anesthesia Type: Epidural (The anesthetic type performed was the same as planned.) Comments: Ambulating, urinating without difficulty, denies neurological deficits, denies NELSON. Anesthesia Procedure Notes - Rebeca Petit MD - 08/26/2017 12:46 AM EST Associated Order(s): ANES PLACEHOLDER FOR LABOR EPIDURAL Procedure: Labor Analgesia Neuraxial Block Labor Analgesia Type: Epidural The patient was greeted. The sedation plan, its benefits, risks and alternatives were discussed withthe patient. The patient has consented to the procedure. The medical history and chart were reviewed. The timeout was performed. Start time: 08/26/2017 12:15 AM End time: 08/26/2017 12:40 AM [facility] [place] Patient Prep Position: Sitting Prep: Chlorhexidine, Hand Hygiene, Hat, Mask and Sterile Gloves Injection technique: continuous Procedure Technique Level of needle insertion: L3-4 Needle approach: midline Needle Type: Tuohy Gauge: 18 Needle length: 3.5 in Needle insertion depth when GILLES achieved: 4.5 cm Technique for Loss of Resistance: GILLES air and GILLES saline Catheter at skin depth: 10 cm Dressing/Secured with: Chlorhexidine Tegaderm and Tape Number of attempts: 1 Test dose Lidocaine 1.5% w/Epinephrine 1:2000,000 3mL Events/Notes Events: None Resident/INTERLOCKER: REBECA PETIT Second Resident/INTERLOCKER: DONALD RODRIGUEZ Fellow: Attending Physician: SILVIO ASTUDILLO ~~~~~~~~~~~~~~~~~~~~~~~~~~~~~~~~~~~~~~~~~~~~~~~~~~~~~~~~~~~~ Anesthesia Preprocedure Evaluation - Jayy Rodriguez MD - 08/25/2017 7:10 PM EST Pre-Anesthesia Evaluation for: Sisi Ruiz alma 41 y.o. female. Patient Active Problem List Diagnosis ??? PROM (premature rupture of membranes) ??? Gestational hypertension, third trimester ??? CHO intolerance ??? Dermatofibroma ??? Previous section literature given, would like . C/S for failure to descend, OP per pt ??? AMA (advanced maternal age) multigravida 35+ Team/Centering [place] - pod review 08/15 Delivery Plan Likely - needs consent Referring provider FIRST TRIMESTER NOB labs WNL Aneuploidy screen [place]/AFP negative CF screen Previously negative Other: early GCT, aspirin, TSH Baseline pre-eclampsia screen labs SERVICE CAPTAIN/Behavioral Health consult/ATP MFM/genetics SECOND TRIMESTER 18-20 week US scan Marginal cord Tubal paper signed THIRD TRIMESTER 28 week labs 06/04/17 gtt @ 151; will do 3 hr (WNL) testing SBIRT GBS Negative 36 week STD labs Contraception Tubal papers signed condom Infant nutrition breast Child education 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/ Circumcision St J pedi Planning IMMUNIZATIONS Influenza TDAP declines : Varicella, MMR, Pneumovax imm/imm *Aspirin High risk >= 3 Low risk TSH History preeclampsia Multifetal gestation Chronic hypertension Pre-gestational diabetes Renal disease Systemic lupus AntiPhospholipidAntibodySyndrome Nulliparity Age >= 35 years >10 year interval between BMI > 30 kg/m2 ethnicity Mother or sister with preeclampsia Previous with IUGR Symptoms Personal history of thyroid disease or TPO antibodies Family history Goiter Autoimmune disease Type I diabetes Infertility or recurrent miscarriage BMI >40 kg/m2 Immigrant from areas of moderate to severe iodine deficiency ??? Telogen effluvium ??? Nevus ??? Elevated blood pressure reading in office with white coat syndrome, without diagnosis of hypertension At first visit. Pt taking BP at home. Baseline pre-eclampsia labs done and normal Past Medical History: Diagnosis Date ??? Anxiety social anxiety ??? Childhood asthma ??? Migraine headache ??? Varicella ??? White coat hypertension Past Surgical History: Procedure Laterality Date ??? SECTION, LOW TRANSVERSE 07/16/2009 breech Social History Substance Use Topics ??? Smoking status: Former Smoker Types: Cigarettes Quit date: 10/07/1999 ??? Smokeless tobacco: Never Used ??? Alcohol use No History Drug Use No Allergies Allergen Reactions ??? Aleve [Naproxen Sodium] Anaphylaxis Medications: MAR and/or home medications have been reviewed. Physical Exam: Most Recent Vitals: 08/25/17 1652 BP: 134/72 Pulse: 95 Resp: Temp: SpO2: Body mass index is 23.55 kg/(m^2). Height: 160.7 cm (5' 3.25) Weight - Scale: 60.8 kg (134 lb) Airway Assessment: Mallampati: II TM distance: >3 FB Neck ROM: full Cardiovascular Assessment: Rhythm: regular Rate: normal Pulmonary Assessment: pulmonary exam normal Dental Assessment: - normal exam Misc Assessment: IV access: Peripheral line Anesthesia Plan: ASA 2 Pt is a 41 y.o. female who is and 39w5d here for labor management with desired TOLAC. Significant PMH: hx CS for arrest of descent, and prior 22w IUFD due to placental abruption, migraines, anxiety, gestational HTN REMOTE hx of asthma in kindergarten wheezing with wood stove, no events since then. No back pathology. No bleeding or clotting disorders. No contraindication to a neuraxial technique. Allergies: -- Aleve (Naproxen Sodium) -- Anaphylaxis (pt feels that her throat closes when she takes this, takes ibuprofen without complication. Denies personal or family history of problems with anesthesia. No existing neurological deficits. Lab Results Component Value Date/Time HGB 14.2 08/25/2017 03:15 PM PLATELET 155 08/25/2017 03:15 PM Discussed potential need for labor analgesia and/or anesthesia to possibly include epidural, spinal,CSE, and anesthesia for (which includes all of the above with the addition of general anesthesia). Answered all questions, consent obtained and placed in patient's chart. Addendum: taken for c/s for arrest of descent. See above additions regarding asthma and allergy to aleve Region - Informed Consent: Anesthetic plan and risks discussed with patient and spouse. Use of blood products discussed with patient and spouse who consented to blood products. Plan discussed with resident and attending. PAT Staff Note documented in this encounter Plan of Treatment Not on filedocumented as of this encounter Procedures Procedure Name Priority Date/Time Associated Diagnosis Comme nts [id number] Routine 08/26/2017 12:49 AM Results for this EST procedure are i n the results section . documented in this encounter Results [id number] (08/26/2017 12:49 AM EST) Narrative Silvio Astudillo MD - 08/26/2017 12:49 A M EST Rebeca Petit MD ? 08/26/2017 12:47 AM Procedure: ?? Labor Analgesia Neuraxial Block Labor Analgesia Type: Epidural The patient was greeted. The sedation pl an, its benefits, risks and alternatives were discussed with the pat ient. ??The patient has consented to the procedure. ??The medical history and chart were reviewed. ??The timeout was performed. Start time: 08/26/2017 12:15 AM End time: 08/26/2017 12:40 AM Patient Location: [facility] [place] Patient Prep Position: Sitting Prep: Chlorhexidine, Hand Hygiene, Hat, Mask and Sterile Gloves Injection technique: continuous Procedure Technique Level of needle insertion: L3-4 Needle approach: midline Needle Type: Tuohy Gauge: 18 Needle length: 3.5 in Needle insertion depth when GILLES achieved : 4.5 cm Technique for Loss of Resistance: GILLES ai r and GILLES saline Catheter at skin depth: 10 cm Dressing/Secured with: Chlorhexidine Teg aderm and Tape Number of attempts: 1 Test dose Lidocaine 1.5% w/Epinephrine 1:2000,000 3mL Events/Notes Events: ??None Resident/INTERLOCKER: ? REBECA PETIT Second Resident/INTERLOCKER: ??DONALD RODRIGUEZ Fellow: ? Attending Physician: ? Ashu ASTUDILLO ~~~~~~~~~~~~~~~~~~~~~~~~~~~~~~~~~~~~~~~~ ~~~~~~~~~~~~~~~~~~~~ Silvio Astudillo MD [facility] [employer] [facility] documented in this encounter Visit Diagnoses Not on filedocumented in this encounter Administered Medications Inactive Administered Medications - up to 3 most recent administrations Medication Order MAR Action Action Date Dose Rate Site chloroprocaine (NESACAINE) Given 08/26/2017 3:33 PM EST 1.25 mLs injection PRN, Starting on Sat08/26/17 at 1444, Until Sat08/26/17 at 1601, Anesthesia Intra-op, Routine Given 08/26/2017 3:17 PM EST 1.25 mLs Given 08/26/2017 3:09 PM EST 5 mLs lactated Ringers infusion New Bag 08/26/2017 2:40 PM EST CONTINUOUS PRN, Starting on Sat08/26/17 at 0015, Until Sat08/26/17 at 1601, Anesthesia Intra-op lidocaine (XYLOCAINE) 10 mg/mL (1 %) Given 08/26/2017 12:[address] 3 mLs injection Subcutaneous, PRN, Starting on Sat08/26/17 at 0025, Until Sat08/26/17 at 1601, Anesthesia Intra-op, Routine lidocaine-EPINEPHrine 1.5 %-1:200,000 Given 08/26/2017 12:30 AM EST 3 mLs injection Epidural, PRN, Starting on Sat08/26/17 at 0030, Until Sat08/26/17 at 1601, Anesthesia Intra-op, Routine morphine (PF) (DURAMORPH) 0.5 mg/mL inje ction Given 08/26/2017 3:27 PM EST 6 mg PRN, Starting on Sat08/26/17 at 1527, Until Sat08/26/17 at 1601, Pain, Anesthesia Intra-op, Routine oxytocin (PITOCIN) 30 units in sodium Given 08/26/2017 3:[address] 20 mLs chloride 0.9% 500 mL infusion PRN, Starting on Sat08/26/17 at 1518, Until Sat08/26/17 at 1601, Anesthesia Intra-op, Routine oxytocin (PITOCIN) 30 units in New Bag 08/26/2017 3:18 PM EST 500 mL/hr 500 mL/hr sodium chloride 0.9% 500 mL infusion CONTINUOUS PRN, Starting on Sat08/26/17 at 1518, Until Sat08/26/17 at 1601, Anesthesia Intra-op, Routine PHENYLephrine Rate/Dose Change 08/26/2017 3:44 PM 20 mcg/min 15 mL/hr (MONALISA-SYNEPHRINE) 20 mg in EST sodium chloride 250 mL (standard ADULT & Pedi greater than 20kg) infusion CONTINUOUS PRN, Starting on Sat08/26/17 at 1459, Until Sat08/26/17 at 1601, Anesthesia Intra-op, Routine New Bag 08/26/2017 2:59 PM EST 40 mcg/min 30 mL/hr documented in this encounter Care Teams Fish Tender Relationship Specialty Start Date End Date Елена Coates MD PCP - General 08/29/10 [address] [place] [address] documented as of this encounter
--- OUTSIDE RECORDS SUMMARY | 2022-05-25 01:41 | XMS_ITS | Encounter Summary ---
:1975 Author Organization [facility] [place] [address] Care Team Providers Name Role Phone Елена Coates MD Primary Care Provider Encounter Details Date Type Department Care Team Description 02/12/2017 Laboratory App[facility]ment [facility] M[facility] age 35+, multigravida, first trimester; [facility] Encounter for rela delta examination, [place] [id number] Social History Tobacco Use Types Packs/Day Years [...] Date/Time Associated Comments Diagnosis MISCELLANEOUS LAB Routine 02/12/2017 2:21 Maternal age 35+, Re sults for this REQUEST PM EDT multigravida, procedure are in first trimester the results section. HEMOGRAM Routine 02/12/2017 2:21 Encounter for Results for this PM EDT related procedure are in examination, first the resul ts trimester section. SCREEN Routine 02/12/2017 2:21 Encounter for ([facility] PM EDT related examination, first trimester DIFFERENTIAL, AUTOMATED Routine 02/12/2017 2:21 Encounter for Results for this PM EDT related procedure are in examination, first the resul ts trimester section. CREATININE Routine 02/12/2017 2:21 Encounter for Results for this PM EDT related procedure are in examination, first the resul ts trimester section. SYPHILIS ANTIBODY SCREEN Routine 02/12/2017 2:21 Encounter for Results for this WITH REFLEX PM EDT related procedure are in examination, first the resul ts trimester section. ABO/RH TYPING Routine 02/12/2017 2:21 Encounter for Results fo r this PM EDT related procedure are in examination, first the resul ts trimester section. RUBELLA ANTIBODY, IGG Routine 02/12/2017 2:21 Encounter for Re sults for this PM EDT related procedure are in examination, first the resul ts trimester section. HIV SCREEN, 4TH Routine 02/12/2017 2:21 Encounter for Results for this GENERATION PM EDT related procedure are in ([facility]/CGP/APD/[place]) examination, first the results trimester section. HEPATITIS B SURFACE Routine 02/12/2017 2:21 Encounter for Resu lts for this ANTIGEN PM EDT related procedure are in examination, first the resul ts trimester section. ANTIBODY SCREEN Routine 02/12/2017 2:21 Encounter for Results for this PM EDT related procedure are in examination, first the resul ts trimester section. VARICELLA ZOSTER Routine 02/12/2017 2:21 Encounter for Results for this ANTIBODY, IGG PM EDT related procedure are in examination, first the resul ts trimester section. ASPARTATE Routine 02/12/2017 2:21 Encounter for Results for this AMINOTRANSFERASE PM EDT related proced ure are in examination, first the resul ts trimester section. documented in this encounter Results Syphilis Antibody (02/12/2017 2:21 PM EDT) Analysis Performed At Patho logist Time Signature Syphilis Negative Negative [facility] IgG/IgM [facility] Specimen Anatomical Collection Method Collection Time Receive d Time (Source) Location / / Volume Laterality Blood specimen 02/12/2017 2:21 PM 017 2:27 (specimen) EDT PM EDT Resulting Agency Comment Spec In Lab Sherley Echeverria MD IMMUNOLOGY ORDERABLES Performing Organization Address City/State/[place] [address] (ABNORMAL) Differential, Automated (02/12/2017 2:21 PM EDT) Patholo gist Method Time Signature Neutrophils % 77.6 % [facility] Neutr Abs (ANC) 9.22 (H) 1.70 - [facility] 6.10 [facility] x10(3)/[facility] LABORATORY Lymphocytes % 16.9 % [facility] Lymphocytes Abs 2.0 0.9 - 3.2 [facility] x10(3[facility] Monocytes % 4.6 % [facility] Monocyte Abs 0.6 0.3 - 0.9 [facility] x10(3)/[facility] Eosinophils % 0.3 % [facility] Eosinophils Abs 0.0 0.0 - 0.4 [facility] x10(3)/[facility] Basophils % 0.3 % [facility] Basophils Abs 0.0 0.0 - 0.1 [facility] x10(3)/[facility] Immature Gran % 0.30 % [facility] Comment: Immature granulocytes(IG's)percentage an d absolute count will include metamyelocytes, myelocytes, and promyelo cytes. Blood smears from CBCs yielding IG's will be scanned manually for concor dance. If this scan disagrees with the automated IG or if promyelocytes are not ed, a manual differential will be performed. Ashley Gran Abs 0.04 0.00 - 0.04 x10(3)/[facility] Specimen Anatomical Collection Method Collection Time Receive d Time (Source) Location / / Volume Laterality Blood specimen 02/12/2017 2:21 PM 017 2:27 (specimen) EDT PM EDT Resulting Agency Comment Spec In Lab Sherley Echeverria MD HEMATOLOGY ORDERABLES Performing Organization Address City/State/[place] [address] (ABNORMAL) Hemogram (02/12/2017 2:21 PM EDT) Analysis Performed At Patho logist Time Signature WBC 11.9 (H) 4.0 - 9.5 [facility] x10(3)/[facility] LABORATORY RBC 4.42 4.00 - [facility] 5.21 [facility] x10(6)/[facility] LABORATORY Hemoglobin 14.1 11.7 - [place] JIGAR 15.5 gm/dL [facility] Hematocrit 38.5 35.7 - [facility] 45.8 % [facility] MCV 87.1 82.6 - [facility] 94.4 [facility] LABORATORY MCH 31.9 27.1 - [facility] JIGAR 32.0 pg [facility] MCHC 36.6 (H) 31.7 - [facility] JIGAR 35.0 gm/dL [facility] Platelets 252 145 - 357 [facility] x10(3)/[facility] LABORATORY RDWSD 38.2 37.0 - [place] JIGAR 46.0 [facility] LABORATORY RDWCV 11.9 11.5 - [facility] 14.1 % [facility] MPV 10.5 7.6 - 12.9 [facility] LABORATORY nRBC % Auto 0.0 % [facility] nRBC Abs Auto 0.000 0.000 - [place] JIGAR 0.000 [facility] x10(3)/[facility] LABORATORY Specimen Anatomical Collection Method Collection Time Receive d Time (Source) Location / / Volume Laterality Blood specimen 02/12/2017 2:21 PM 017 2:27 (specimen) EDT PM EDT Resulting Agency Comment Spec In Lab Sherley Echeverria MD HEMATOLOGY ORDERABLES Performing Organization Address City/State/[place] [address] Rubella Antibody, IgG (02/12/2017 2:21 PM EDT) P athologist Signature Rubella IgG Positive Positive [facility] Comment: Please note: ??A positive result for thi s assay indicates that antibody levels are >or= 10.0 IU/mL and is considered to be an indicator of positive immune status. Specimen Anatomical Collection Method Collection Time Receive d Time (Source) Location / / Volume Laterality Blood specimen 02/12/2017 2:21 PM 017 2:27 (specimen) EDT PM EDT Resulting Agency Comment Spec In Lab Sherley Echeverria MD IMMUNOLOGY ORDERABLES Performing Organization Address City/State/[place] [address] Hepatitis B Surface Antigen (02/12/2017 2:21 PM EDT) Analysis Performed At Patho logist Time Signature HepB Surface Negative Negative [facility] LABORATORY Specimen Anatomical Collection Method Collection Time Receive d Time (Source) Location / / Volume Laterality Blood specimen 02/12/2017 2:21 PM 017 2:27 (specimen) EDT PM EDT Resulting Agency Comment Spec In Lab Sherley Echeverria MD CHEMISTRY ORDERABLES Performing Organization Address City/[facility] [place] [address] Antibody screen (02/12/2017 2:21 PM EDT) Patholo gist Method Time Signature Ab Screen Negative [facility] LABORATORY Expires at 02/15/2017 [facility] 2359 on: [facility] Specimen Anatomical Collection Method Collection Time Receive d Time (Source) Location / / Volume Laterality Blood specimen 02/12/2017 2:21 PM 017 2:25 (specimen) EDT PM EDT Resulting Agency Comment Spec In Lab Sherley Echeverria MD BLOOD BANK ORDERABLES Performing Organization Address City/[facility]/[place] [address] ABO/Rh Typing (02/12/2017 2:21 PM EDT) P athologist Signature ABORh Type A Pos [facility] Specimen Anatomical Collection Method Collection Time Receive d Time (Source) Location / / Volume Laterality Blood specimen 02/12/2017 2:21 PM 017 2:25 (specimen) EDT PM EDT Resulting Agency Comment Spec In Lab Sherley Echeverria MD BLOOD BANK ORDERABLES Performing Organization Address City/[facility]/[place] [address] (ABNORMAL) Creatinine (02/12/2017 2:21 PM EDT) athologist Signature Creatinine 0.52 (L) 0.70 - [place] TA 1.20 mg/dL [facility] Comment: Please note that the pediatric reference intervals supplied above were not validated at [facility]. Results from pediatri c patients should be interpreted in conjunction to the patient's age, height and muscle mass. Estimated GFR >60 >=60 [facility] Comment: This estimated GFR (eGFR) value was calc ulated using the MDRD equation which has been validated on patients between t he ages of 18 and 70. The MDRD should not be used to assess kidney function in patients < 18 years of age or in patients with extremes of body mass, or in patients with acute kidney failure. This value should be multiplied by 1.2 f or patients. For further information please copy and past e the following links into your internet browser. http://Busap/DHnkdep [email or web address] Specimen Anatomical Collection Method Collection Time Receive d Time (Source) Location / / Volume Laterality Blood specimen 02/12/2017 2:21 PM 017 2:27 (specimen) EDT PM EDT Resulting Agency Comment Spec In Lab Sherley Echeverria MD CHEMISTRY ORDERABLES Performing Organization Address City/[facility]/ZIP Code Phon e Number [address] Aspartate Aminotransferase (02/12/2017 2:21 PM EDT) athologist Signature AST 13 0 - 30 [facility] unit/L [facility] Specimen Anatomical Collection Method Collection Time Receive d Time (Source) Location / / Volume Laterality Blood specimen 02/12/2017 2:21 PM 017 2:27 (specimen) EDT PM EDT Resulting Agency Comment Spec In Lab Sherley Echeverria MD CHEMISTRY ORDERABLES Performing Organization Address City/[facility] Phon e Number [address] HIV Screen, 4th Generation (02/12/2017 2:21 PM EDT) Analysis Performed At Patho logist Time Signature HIV-1/2 Ab and Negative Negative [facility]ORATORY Comment: This 4th Generation HIV test screens for the presence of the HIV-1 p24 antigen as well as antibodies reactive against H IV-1 and HIV-2. A negative screen does not rule out an acute HIV infection. If acute HIV infection is suspected, testing should be repeated in 2 - 3 week s or HIV nucleic acid testing performed. Specimen Anatomical Collection Method Collection Time Receive d Time (Source) Location / / Volume Laterality Blood specimen 02/12/2017 2:21 PM 017 2:27 (specimen) EDT PM EDT Resulting Agency Comment Spec In Lab Sherley Echeverria MD IMMUNOLOGY ORDERABLES Performing Organization Address City/[facility]/ZIP [facility] Phon e Number [address] Varicella zoster Antibody, IgG (02/12/2017 2:21 PM EDT) P athologist Signature Varicella IgG Pos [facility] Specimen Anatomical Collection Method Collection Time Receive d Time (Source) Location / / Volume Laterality Blood specimen 02/12/2017 2:21 PM 017 6:58 (specimen) EDT AM EDT Resulting Agency Comment Spec In Lab Sherley Echeverria MD IMMUNOLOGY ORDERABLES Performing Organization Address City/[facility]/[place] [address] Miscellaneous Lab request (02/12/2017 2:21 PM EDT) Patholo gist Method Time Signature Misc Lab Request [place] TA Result received in [facility] LABORATORY Specimen Anatomical Collection Method Collection Time Receive d Time (Source) Location / / Volume Laterality Blood specimen 02/12/2017 2:21 PM 017 3:05 (specimen) EDT PM EDT Resulting Agency Comment Spec In Lab Ashleigh Leach MD HEMATOLOGY ORDERABLES Performing Organization Address City/[facility] [place] [address] documented in this encounter Visit Diagnoses Diagnosis Maternal age 35+, multigravida, first tr imester Encounter for related examinat ion, first trimester documented in this encounter Care Teams Warehouse Picker Relationship Specialty Start Date End Date Елена Coates MD PCP - General 08/29/10 [address] [place] [address] documented as of this encounter
--- OUTSIDE RECORDS SUMMARY | 2022-05-25 01:41 | XMS_ITS | Encounter Summary ---
:1975 Author Organization [facility] [place] [address] Care Team Providers Name Role Phone Елена Coates MD Primary Care Provider Reason for Visit Reason Comments Positive Screen For Neural Tube Defect AFP 2.40 MoM, o pen spina bifida risk 1:151 Encounter Details Date Type Department Care Team Description 09/01/2014 Office Visit Obstetrics and Gen [place] Abnorma l findings on screening of mother; Gynecology at [facility] Encounter for genetic counseling [facility] [address] [place] OBSTETRICS & [phone] GYNECOLOGY [phone] [place], [place] [address] Social History Tobacco Use Types Packs/Day Years Used Date Former Smoker Alcohol Use Standard Drinks/Week Comments No 0 (1 standard drink = 0.6 oz pure alcoho l) Sex Assigned at Date Recorded Not on file documented as of this encounter Progress Notes Gen [place], [place] - 09/01/2014 1:14 PM EST GENETIC COUNSELING NOTE Sisi Quezada Joseph was referred to the Diagnosis Program by Eliana Sharp MD. I met with Sisi for a 35 minute genetic counseling visit. Chief Complaint Patient presents with ??? Positive Screen For Neural Tube Defect AFP 2.40 MoM, open spina bifida risk 1:151 Past Medical History Diagnosis Date ??? White [...] Relative: His mother had a stillborn daughter OB History Grav Para Term Abortions TAB SAB Ect Mult Living 3 1 1 1 1 1 Patient's last menstrual period was 04/20/2014. Estimated Date of Delivery: 01/25/2015 based on menstrual dating and confirmed by first trimester ultrasound. Screening Results Test Result ? ? Butler Test Trisomy 21 <1:97597 Trisomy 18 <1:61448 Trisomy 13 <1:01877 ??? Cystic fibrosis carrier screen Negative for 97 mutations ??? Thalassemia screen MCV within normal limits (86.8 fL) Assessment 38 y.o. female currently at 19w1d gestation with elevated maternal serum AFP. Discussion We discussed the association of elevated maternal serum AFP with neural tube defects and other fetalanomalies, such abdominal wall defects. Elevated maternal serum AFP can also be related to bleeding during . Sisi has had vaginal bleeding since 07/31/2014; she is currently out of work andon modified bedrest. We reviewed the options available to Sisi, including ultrasound and amniocentesis, and the risks,benefits, and limitations of each test. About 90- 95% of fetuses with an open neural tube defect are identified by a detailed morphology ultrasound, and a normal amniotic fluid AFP rules out open s sotomayor bifida in approximately 96% of fetuses. Sisi is not inclined to pursue amniocentesis if the morphology is normal today. We also discussed the association of elevated maternal serum AFP with gestational hypertension, preeclampsia, demise, delivery, growth restriction, and placental abruption. Consideration may be given to third trimester ultrasound assessment of growth. Plan Sisi is scheduled for a targeted morphology ultrasound and maternal- medicine consultation following our visit today. documented in this encounter Plan of Treatment Not on filedocumented as of this encounter Visit Diagnoses Diagnosis Abnormal findings on screening of mother Abnormal findings on screening Encounter for genetic counseling Genetic counseling documented in this encounter Care Teams Beer Coil Cleaner Relationship Specialty Start Date End Date Елена Coates MD PCP - General 08/29/10 [address] [place] [address] documented as of this encounter
--- OUTSIDE RECORDS SUMMARY | 2022-05-25 01:41 | XMS_ITS | Encounter Summary ---
:1975 Author Organization [facility] [place] [address] Care Team Providers Name Role Phone Елена Coates MD Primary Care Provider Encounter Details Date Type Department Care Team Description 02/12/2017 Hospital Encounter Ultrasound at [facility] Beverly Rodríguez, Encounter for [facility] PAPER SAMPLE CLERK related Drive [facility] [facility], [facility] [address] trimester [phone] OBSTETRICS & [phone] [place] [address] Social History Tobacco Use Types Packs/Day Years [...] Tablet mouth. Take by mouth. 0 05/22/2019 [id number] Tablet documented as of this encounter Plan of Treatment Not on filedocumented as of this encounter Procedures Procedure Name Priority Date/Time Associated Comments Diagnosis US OB VIABILITY Routine 02/12/2017 9:48 AM Encounter for Resul ts for this TRANSABDOMINAL EDT related procedur e are in examination, first the resul ts trimester section. documented in this encounter Results US OB Transabdominal (02/12/2017 9:48 AM EDT) Anatomical Region Laterality Modality Pelvis, Abdomen Ultrasound Specimen (Source) Anatomical Collection Method Collection Time Re ceived Time Location / / Volume Laterality 02/12/2017 9:47 AM EDT Impressions 02/12/2017 9:52 AM EDT 1st Trimester Summary Single living intrauterine wi th a gestational age of 12w 0d based on Clinical SREEKANTH The crown rump length corresponds to a gestational age of 12w 6d. I ??viewed the images and agree with th e above interpretation. ? Jemal Hermosillo MD Electronically Signed Final Report ?? 09:52 am Narrative 02/12/2017 9:52 AM EDT OBSTETRICS REPORT ?(Signed Final 02/12/2017 09:52 am) PATIENT INFO: ID #: ? [id number] ?: ??[birth year] (41 yrs) Name: ? ELISEO RUIZ ? Visit Date: 02/12/2017 09:47 am PERFORMED BY: Performed By: ? Greer Avery RDMS Attending: ?Bay TERRELL, Bryant Noguera. Referred By: ?BEVERLY Bhatti Location: ? [facility] SERVICE(S) PROVIDED: ??UOBVIB - ??Viability <14 weeks - Rodriguez sabdominal - ?[id number] ??[id number] INDICATIONS: ??confirm dating, cycles short, having FFDNA ??done OB HISTORY: Height: ? 5'3 ?Weight: ?? 1 15 ?BMI: ??20.37 EVALUATION: Num Of Fetuses: ? 1 Preg. Location: ? Uterus Gest. Sac: ?Visualized Pole: ? Visualized Heart ? 155 Rate(bpm): Cardiac Activity: ?? Observed, normal r hythm Presentation: ? Variable Placenta: ? Too early to e valuate Amniotic Fluid CONSTANZA FV: ?Too early to evaluate --------- BIOMETRY: --------- CRL: ?65.1 ??mm ? G.Age: ?? 12w 6d ?SREEKANTH: ?? 08/21/17 GESTATIONAL AGE: Clinical SREEKANTH: ??12w 0d ?SREEKANTH: ?? 08/27/17 Best: ?12w 0d ?? Det. By: ??Clinical SREEKANTH ? SREEKANTH: ?? 08/27/17 CERVIX UTERUS ADNEXA: Left Ovary Size(cm) ? 2.44 ?? x ?? 1.5 ?x ??1.56 ?Vol(ml): 3.0 Visualized Right Ovary Size(cm) ? 2.91 ?? x ?? 2.91 ?? x ? ?2.14 ?Vol(ml): 9.5 Visualized Cul De Sac: ?? No fluid seen Procedure Note Jemal Hermosillo MD - 02/12/2017Format ting of this note might be different from the original. OBSTETRICS REPORT (Signed Final 017 09:52 am) PATIENT INFO: ID #: [id number] : [birth year] (41 y rs) Name: ELISEO RUIZ Visit Date: 2016 09:47 am PERFORMED BY: Performed By: Alicia Avery RDMS Attending: Jemal Hermosillo MD Referred By: BEVERLY AZAR Location: [facility] SERVICE(S) PROVIDED: UOBVIB - Viability <14 weeks - Transabd martininal - [id number] INDICATIONS: confirm dating, cycles short, having FF DNA done OB HISTORY: Height: 5'3 Weight: 115 BMI: 20.37 EVALUATION: Num Of Fetuses: 1 Preg. Location: Uterus Gest. Sac: Visualized Pole: Visualized Heart 155 Rate(bpm): Cardiac Activity: Observed, normal rhyt hm Presentation: Variable Placenta: Too early to evaluate Amniotic Fluid CONSTANZA FV: Too early to evaluate --------- BIOMETRY: --------- CRL: 65.1 mm G.Age: 12w 6d SREEKANTH: 7 GESTATIONAL AGE: Clinical SREEKANTH: 12w 0d SREEKANTH: 08/27/17 Best: 12w 0d Det. By: Clinical SREEKANTH SREEKANTH: 08/27/17 CERVIX UTERUS ADNEXA: Left Ovary Size(cm) 2.44 x 1.5 x 1.56 Vol(ml): 3.0 Visualized Right Ovary Size(cm) 2.91 x 2.91 x 2.14 Vol(ml): 9. 5 Visualized Cul De Sac: No fluid seen IMPRESSION 1st Trimester Summary Single living intrauterine wi th a gestational age of 12w 0d based on Clinical SREEKANTH The crown rump length corresponds to a gestational age of 12w 6d. I viewed the images and agree with the above interpretation. Jemal Hermosillo MD Electronically Signed Final Report 02/12 09:52 am Beverly Rodríguez APRN [facility] OB ORDERABLES documented in this encounter Visit Diagnoses Diagnosis Encounter for related examinat ion, first trimester documented in this encounter Care Teams Scowman Relationship Specialty Start Date End Date Елена Coates MD PCP - General 08/29/10 [address] [place] [address] documented as of this encounter
--- OUTSIDE RECORDS SUMMARY | 2022-05-25 01:41 | XMS_ITS | Encounter Summary ---
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 Take by mouth. 0 05/22/2019 [id number] Tablet documented as of this encounter Plan of Treatment Not on filedocumented as of this encounter Procedures Procedure Name Priority Date/Time Associated Diagnosis Comme nts US OB SCREENING Routine 04/01/2017 9:52 AM AMA (advanced Resul ts for this MORPHOLOGY EDT maternal age) procedure are in multigravida 35+, the result s first trimester section. documented in this encounter Results US OB Screening Morphology (04/01/2017 9:52 AM EDT) Anatomical Region Laterality Modality Pelvis, Abdomen Ultrasound Specimen (Source) Anatomical Collection Method Collection Time Re ceived Time Location / / Volume Laterality 04/01/2017 9:45 AM EDT Impressions 04/01/2017 10:11 AM EDT 2nd Trimester - Screening Morphology - Summary Single intrauterine with a ge stational age of 18w 6d based on Clinical SREEKANTH. Composite age based on the current ultr asound alone is 19w 2d. Current growth parameters are consisten t with prior dating indicating normal growth. Amniotic fluid volume is subjectively a ppropriate for gest age. Posterior right lateral placenta with m arginal cord insertion. Small placental shelf noted far right l ateral. anatomic evaluation was performed and no structural abnormalities are noted. I ??viewed the images and agree with tereza rosen above interpretation. ? Charley J Satya morgan MD Electronically Signed Final Report ?? 10:10 am Narrative 04/01/2017 10:11 AM EDT OBSTETRICS REPORT ? (Signed Final 04/01/2017 10:10 am) PATIENT INFO: ID #: ? [id number] ?: ??[birth year] (41 yrs) Name: ? ELISEO RUIZ ? Visit Date: 04/01/2017 09:45 am PERFORMED BY: Performed By: ? Pilar Yu RDMS Attending: ?Maribel TERRELL, There se Garza Referred By: ?BEVERLY RODRÍGUEZ Location: ? [place] SERVICE(S) PROVIDED: ??UOB - Screening Morphology - [id number] INDICATIONS: ??18 weeks gestation of ?Z3A.18 ??18 wk morphology OB HISTORY: Blood ?Height: ??5'3 ?Weight (lb): 115 ? BMI: ??20.37 Type: EVALUATION: Num Of Fetuses: ? 1 Heart ? 144 Rate(bpm): Cardiac Activity: ?? Observed, normal r hythm Presentation: ? Cephalic Placenta: ? Posterior righ t lateral P. Cord Insertion: ??Marginal Amniotic Fluid CONSTANZA FV: ?Subjectively appropriat e for gest age --------- BIOMETRY: --------- BPD: ?44.0 ??mm ? G.Age: ?? 19w 2d OFD: ?57.5 ??mm HC: ?163.4 ??mm ? G.Age: ?? 19w 1d AC: ?144.1 ??mm ? G.Age: ?? 19w 5d FL: ? 29.1 ??mm ? G.Age: ?? 19w 0d HUM: ?29.8 ??mm ? G.Age: ?? 19w 6d CER: ?20.1 ??mm ? G.Age: ?? 19w 1d NFT: ?3.25 ??mm NB: ? 4.54 ??mm LV: ? 7.22 ??mm CM: ? 4.33 ??mm HUM: ?29.8 ??mm ? G.Age: ?? 19w 6d FL: ? 29.1 ??mm ? G.Age: ?? 19w 0d CI: ?76.5 ??% ? 70 - 86 FL/HC: ? 17.8 ??% ? 16.1 - 18.3 HC/AC: ? 1.13 ?1.09 - 1.39 FL/BPD: ?66.1 ??% FL/AC: ? 20.2 ??% ? 20 - 24 Est. FW: ? 287 ?? gm ?? 0 lb 10 oz GESTATIONAL AGE: Clinical SREEKANTH: ??18w 6d ?SREEKANTH: ?? 08/27/17 U/S Today: ? 19w 2d ?SREEKANTH: ?? 08/24/17 Best: ?18w 6d ?? Det. By: ??Clinical SREEKANTH ? SREEKANTH: ?? 08/27/17 -------- ANATOMY: -------- Cranium: ? Within No rmal Limits Cavum: ? Visualiz ed Ventricles: ?Within Nor mal Limits Choroid Plexus: ?Visualized Cerebellum: ?Within Nor mal Limits Posterior Fossa: ? Within Normal Limits Nuchal Fold: ? Within Norm al Limits Face: ?Nose/Li ps seen- WNL Heart: ? 4 chambe r view appears normal RVOT: ?Visuali zed LVOT: ?Visuali zed Diaphragm: ? Visualized Stomach: ? Visualize d Abdomen: ? Visualize d Abdominal Wall: ?Cord Inserti on - WNL Cord Vessels: ?3 vessels - WNL Kidneys: ? Visualize d Bladder: ? Visualize d Spine: ? Visualiz ed Upper Extremities: ? Visualized Lower Extremities: ? Visualized Other: ??Nasal bone: Present CERVIX UTERUS ADNEXA: Left Ovary Not visualized Right Ovary Not visualized Procedure Note Charley López MD - 04/01/2017Forma tting of this note might be different from the original. OBSTETRICS REPORT (Signed Final 017 10:10 am) PATIENT INFO: ID #: [id number] : [birth year] (41 y rs) Name: ELISEO RUIZ Visit Date: 2016 09:45 am PERFORMED BY: Performed By: Aminata Yu RDMS Attending: Charley López MD Referred By: BEVERLY RODRÍGUEZ Location: [place] SERVICE(S) PROVIDED: UOB - Screening Morphology - [id number] INDICATIONS: 18 weeks gestation of Z3A.18 18 wk morphology OB HISTORY: Blood Height: 5'3 Weight (lb): 115 BMI : 20.37 Type: EVALUATION: Num Of Fetuses: 1 Heart 144 Rate(bpm): Cardiac Activity: Observed, normal rhyt hm Presentation: Cephalic Placenta: Posterior right lateral P. Cord Insertion: Marginal Amniotic Fluid CONSTANZA FV: Subjectively appropriate for ge st age --------- BIOMETRY: --------- BPD: 44.0 mm G.Age: 19w 2d OFD: 57.5 mm HC: 163.4 mm G.Age: 19w 1d AC: 144.1 mm G.Age: 19w 5d FL: 29.1 mm G.Age: 19w 0d HUM: 29.8 mm G.Age: 19w 6d CER: 20.1 mm G.Age: 19w 1d NFT: 3.25 mm NB: 4.54 mm LV: 7.22 mm CM: 4.33 mm HUM: 29.8 mm G.Age: 19w 6d FL: 29.1 mm G.Age: 19w 0d CI: 76.5 % 70 - 86 FL/HC: 17.8 % 16.1 - 18.3 HC/AC: 1.13 1.09 - 1.39 FL/BPD: 66.1 % FL/AC: 20.2 % 20 - 24 Est. FW: 287 gm 0 lb 10 oz GESTATIONAL AGE: Clinical SREEKANTH: 18w 6d SREEKANTH: 08/27/17 U/S Today: 19w 2d SREEKANTH: 08/24/17 Best: 18w 6d Det. By: Clinical SREEKANTH SREEKANTH: 08/27/17 -------- ANATOMY: -------- Cranium: Within Normal Limits Cavum: Visualized Ventricles: Within Normal Limits Choroid Plexus: Visualized Cerebellum: Within Normal Limits Posterior Fossa: Within Normal Limits Nuchal Fold: Within Normal Limits Face: Nose/Lips seen- WN Heart: 4 chamber view appears normal RVOT: Visualized LVOT: Visualized Diaphragm: Visualized Stomach: Visualized Abdomen: Visualized Abdominal Wall: Cord Insertion - WNL Cord Vessels: 3 vessels - WN Kidneys: Visualized Bladder: Visualized Spine: Visualized Upper Extremities: Visualized Lower Extremities: Visualized Other: Nasal bone: Present CERVIX UTERUS ADNEXA: Left Ovary Not visualized Right Ovary Not visualized IMPRESSION 2nd Trimester - Screening Morphology - Summary Single intrauterine with a ge stational age of 18w 6d based on Clinical SREEKANTH. Composite age based on the current ultr asound alone is 19w 2d. Current growth parameters are consisten t with prior dating indicating normal growth. Amniotic fluid volume is subjectively a ppropriate for gest age. Posterior right lateral placenta with m arginal cord insertion. Small placental shelf noted far right l ateral. anatomic evaluation was performed and no structural abnormalities are noted. I viewed the images and agree with the above interpretation. Charley López MD Electronically Signed Final Report 04/01 10:10 am Beverly Gillis Marcos GRETCHEN IMG US OB ORDERABLES documented in this encounter Visit Diagnoses Diagnosis AMA (advanced maternal age) multigravida 35+, first trimester documented in this encounter Care Teams Residential Direct Support Professional Relationship Specialty Start Date End Date Елена Coates MD PCP - General 08/29/10 [address] [place] [address] documented as of this encounter
--- OUTSIDE RECORDS SUMMARY | 2022-05-25 01:41 | XMS_ITS | Encounter Summary ---
:1975 Author Organization [facility] [place] [address] Care Team Providers Name Role Phone Елена Coates MD Primary Care Provider Encounter Details Date Type Department Care Team Description 02/13/2017 Orders Only Obstetrics and Beverly Rodríguez AMA (adva nced maternal Gynecology at [facility] age) multigravida 35+, [facility] [address] [place], [place] OBSTETRICS & [address] GYNECOLOGY [phone] [place], [place] [address] Social History Tobacco Use Types Packs/Day Years Used Date Former Smoker Cigarettes Quit: 10/07/19 Smokeless Tobacco: Never Used Alcohol Use Standard Drinks/Week Comments No 0 (1 standard drink = 0.6 oz pure alcoho l) Sex Assigned at Date Recorded Not on file documented as of this encounter Plan of Treatment Not on filedocumented as of this encounter Results US OB Screening Morphology [...] 10:10 am) PATIENT INFO: ID #: ? [id number] ?: ??[birth year] (41 yrs) Name: ? ELISEO RUIZ ? Visit Date: 04/01/2017 09:45 am PERFORMED BY: Performed By: ? Pilar Yu RDMS Attending: ?Maribel TERRELL, Anahy Mercedes. Referred By: ?BEVERLY RODRÍGUEZ Location: ? [place] SERVICE(S) PROVIDED: ??UOB - Screening Morphology - [id number] ?[id number] INDICATIONS: ??18 weeks gestation of ?Z3A.18 ??18 [...] 017 10:10 am) PATIENT INFO: ID #: [id number] : [birth year] (41 y rs) Name: ELISEO RUIZ Visit Date: 2016 09:45 am PERFORMED BY: Performed By: Aminata Yu RDMS Attending: Charley López MD Referred By: BEVERLY RODRÍGUEZ Location: [place] SERVICE(S) PROVIDED: UOB - Screening Morphology - [id number] INDICATIONS: 18 weeks gestation of Z3A.18 18 wk morphology OB HISTORY: Blood Height: 5'3 Weight (lb): 115 BMI : 20.37 Type: EVALUATION: Num Of Fetuses: 1 Heart 144 Rate(bpm): Cardiac Activity: Observed, normal rhyt hm Presentation: Cephalic Placenta: Posterior right lateral P. Cord Insertion: Marginal Amniotic Fluid CONSTANZA FV: Subjectively appropriate for st age --------- BIOMETRY: --------- BPD: 44.0 [...] Fold: Within Normal Limits Face: Nose/Lips seen- WNL Heart: 4 chamber view appears normal RVOT: Visualized LVOT: Visualized Diaphragm: Visualized Stomach: Visualized Abdomen: Visualized Abdominal Wall: Cord Insertion - WNL Cord Vessels: 3 vessels - WNL Kidneys: Visualized Bladder: Visualized Spine: Visualized Upper [...] Signed Final Report 04/01 10:10 am Beverly Rodríguez APRN IMG US OB ORDERABLES documented in this encounter Visit Diagnoses Diagnosis AMA (advanced maternal age) multigravida 35+, first trimester AMA (advanced maternal age) multigravida 35+, first trimester documented in this encounter Care Teams Chief Sustainability Officer Relationship Specialty Start Date End Date Елена Coates MD PCP - General 08/29/10 [address] [place] [address] documented as of this encounter
--- OUTSIDE RECORDS SUMMARY | 2022-05-25 01:41 | XMS_ITS | Encounter Summary ---
:1975 Author Organization [facility] [place] [address] Care Team Providers Name Role Phone Елена Coates MD Primary Care Provider Encounter Details Date Type Department Care Team Description 08/25/2017 Telephone Obstetrics and Gynecology at [facility] Bj chance MD [facility] [address] OBSTETRICS & [place] [address] [place] [address] [phone] (Wo rk) Social History Tobacco Use Types Packs/Day Years Used Date Former Smoker Cigarettes Quit: 10/07/19 00 Smokeless Tobacco: Never Used Alcohol Use Standard Drinks/Week Comments No 0 (1 standard drink = 0.6 oz pure alcoho l) Sex Assigned at Date Recorded Not on file documented as of this encounter Miscellaneous Notes Telephone Encounter - Bj Lewis MD - 08/25/2017 2:27 AM EST Returned call to OB pager. Reports that her water broke at about midnight. She reports a gush of fluid with a bit of blood. It is otherwise clear. She has continued to leak fluid since that time, filling a pad. Since then she has started to have contractions, now about 9 minutes apart and are getting s tronger. She is invited in for evaluation, likely admission. She lives about an hour away. BJ LEWIS MD PGY4 08/25/2017 documented in this encounter Plan of Treatment Not on filedocumented as of this encounter Visit Diagnoses Not on filedocumented in this encounter Care Teams Sales Technician Home Theater Relationship Specialty Start Date End Date Елена Coates MD PCP - General 08/29/10 [address] [place] [address] documented as of this encounter
--- OUTSIDE RECORDS SUMMARY | 2022-05-25 01:41 | XMS_ITS | Encounter Summary ---
:1975 Author Organization [facility] [place] [address] Care Team Providers Name Role Phone Елена Coates MD Primary Care Provider Encounter Details Date Type Department Care Team Description 06/08/2017 Telephone Obstetrics and Gynecology at Raquel Ramos MD [facility] [address] OBSTETRICS & [place] [address] [place] [address] [phone] (Wo rk) Social History Tobacco Use Types Packs/Day Years Used Date Former Smoker Cigarettes Quit: 10/07/19 00 Smokeless Tobacco: Never Used Alcohol Use Standard Drinks/Week Comments No 0 (1 standard drink = 0.6 oz pure alcoho l) Sex Assigned at Date Recorded Not on file documented as of this encounter Miscellaneous Notes Telephone Encounter - Raquel Paris MD - 06/08/2017 12:08 PM EDT PGY-4 OB Note CC: 3-hour glucose test results S: confused about results, whether she has CHO intolerance of GDM. O: Fasting-90 1 hour-153 2 hour-156 off by 1 should be <155 3 hour 112 A/P: 41 y.o. at 28w4d with CHO intolerance in . She is interested in meeting with a rn cardiac. I also discussed exercise. Will coordinate referral to nutrition. 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
--- OUTSIDE RECORDS SUMMARY | 2022-05-25 01:41 | XMS_ITS | Encounter Summary ---
:1975 Author Organization [facility] [address] Care Team Providers Name Role Phone Елена Coates MD Primary Care Provider Reason for Visit Reason Comments Follow-up Encounter Details Date Type Department Care Team Description 04/01/2017 Routine Obstetrics and Jazz Prajapati MD GA: 18w6d Gynecology at [facility] [address] [place] [address] GYNECOLOGY [phone] [place], [place] [address] (Wo rk) Social History Tobacco [...] Sign Reading Time Taken Comments Blood Pressure 120/78 04/01/2017 10:19 AM EDT Pulse - - Temperature - - Respiratory Rate - - Oxygen Saturation - - Inhaled Oxygen Concentration - - Weight 54 kg (119 lb) 04/01/2017 10:19 AM EDT Height - - Body Mass Index 20.91 01/22/2017 10:20 AM EDT documented in this encounter Progress Notes Jazz Prajapati MD - 04/01/2017 10:15 AM EDT # Morph scan today OK, marginal cord insertion, plan growth scan at 32 wks # OB Hx- Had placental issues and IUFD in last with subchorionic hemorrhage noted at 12-14wks, and subsequently had PROM at 22 wks. First term, IOL for PROM, C/S failure to descend, ?OP--> C/S. # Interested in depending on size of fetus and what complications may be occurring. Needs to sign release of records to obtain op note. Will also need to sign consent- not done today # White coat hypertension:Home BPs; 89/59, 108/63, 99/64; highest recorded- 108/70. Will bring home BP for calibration movement x 2+ wks #Umbilical hernia since first - wonders about possible repair if C/S documented in this encounter Plan of Treatment Not on filedocumented as of this encounter Visit Diagnoses Diagnosis Encounter for supervision of other bianca beauchamp in second trimester Previous delivery affecting pre gnancy, antepartum Previous delivery, antepartum c ondition or complication AMA (advanced maternal age) primigravida 35+, second trimester Variation of umbilical cord Other umbilical cord complications durin g labor and delivery, unspecified as to episode of care documented in this encounter Care Teams Rn Clinical Relationship Specialty Start Date End Date Елена Coates MD PCP - General 08/29/10 [address] [place] [address] documented as of this encounter
--- OUTSIDE RECORDS SUMMARY | 2022-05-25 01:41 | XMS_ITS | Encounter Summary ---
:1975 Author Organization [facility] [place] [address] Care Team Providers Name Role Phone Елена Coates MD Primary Care Provider Reason for Visit Reason Comments Initial Visit Encounter Details Date Type Department Care Team Description 01/22/2017 Initial Obstetrics and Carmen Rodríguez APRN [facility] [address] OBSTETRICS [place] [address] [place]: [id number] Gynecology at [facility] Jeanine Christianson [facility] [place] [id number] Social History Tobacco Use Types Packs/Day Years Used Date Former Smoker Cigarettes Quit: 10/07/19 00 Smokeless Tobacco: Never Used Alcohol Use Standard Drinks/Week Comments No 0 (1 standard drink = 0.6 oz pure alcoho l) Sex Assigned at Date Recorded Not on file documented as of this encounter Last Filed Vital Signs Vital Sign Reading Time Taken Comments Blood Pressure 138/86 01/22/2017 10:54 AM EDT Pulse 90 01/22/2017 10:19 AM EDT Temperature 36.9 ??C (98.5 ??F) 01/22/2017 10:19 AM EDT Respiratory Rate 18 01/22/2017 10:19 AM EDT Oxygen Saturation 100% 01/22/2017 10:19 AM EDT Inhaled Oxygen Concentration - - Weight 52.5 kg (115 lb 11.2 oz) 01/22/2017 10:19 AM EDT Height 160.7 cm (5' 3.25) 01/22/2017 10:20 AM EDT Body Mass Index 20.33 01/22/2017 10:19 AM EDT documented in this encounter Progress Notes JudahMj nagy Gutierrez - 01/22/2017 10:00 AM EDT Pt was not seen by med student Jeanine Christianson RN - 01/22/2017 10:00 AM EDT Sisi Ruiz presents for initial visit. LMP 11/20/2016. Reports daily nausea, instructed patient on home remedies to try(sonia candy, sonia ade, sonia, c-bands, small frequent bland meals, vitamin B6 tablets 25mg three times daily with 1/2 tablet unisom at night). Reports relief with smallfrequent messi. Denies emesis. Denies cramping. Reports episode of spotting 01/17/2017 with wiping twice, yellow discharge with light brown mized in per patient. Denies active bleeding, denies heartburn.Declines Centering. Interested in Avenel testing, had with previous . Reports previous CF testing as negative. ACOG book given to patient. Informed patient how to reach clinic and providers with any questions or concerns. In the past year: Ob Screener 01/22/2017 Drinking frequency 2 to 4 times a month Drinks per day 1 to 2 drinks 4+ drinks on one occasion Never KARYN Never The patient denies travel by her or her partner to an area with endemic Zika infection including [place]. Carmen Rodríguez APRN - 01/22/2017 10:00 AM EDT Reason for visit: NOB Dating: LMP 11/20/16, different, had it for one day, light spotting for a couple days after that Genetics: Avenel. Has had CF testing before and was negative Team: [place] ROS: some nausea, no vomiting, mild headache on occasion, no migra SPANISHER HX: Pt is a 41 y.o. female. Last Pap: [facility] 10/2015 NILM per pt, hx of abn pap: age 22, all normal, hx of STD neg. Past Medical History: Diagnosis Date ??? Childhood asthma ??? Migraine headache ??? Psychiatric problem social anxiety, white coat syndrome ??? Varicella ??? White coat hypertension Past Surgical History: Procedure Laterality Date ??? SECTION, LOW TRANSVERSE 07/16/2009 breech Family History Problem Relation Age of Onset [...] ??? Heart Disease Paternal Grandfather Social History Social History ??? Marital status: Single Spouse name: N/A ??? Number of children: N/A ??? Years of education: N/A Occupational History ??? Not on file. Social History Main Topics ??? Smoking status: Former Smoker Types: Cigarettes Quit date: 10/07/1999 ??? Smokeless tobacco: Never Used ??? Alcohol use No ??? Drug use: No ??? Sexual activity: Yes Partners: Male Other Topics Concern ??? Not on file Social History Narrative In relationship with Kevin x 15 yrs. They have one child together, Kip, age 7. They own their own home, private health insurance, no financial concerns. Outpatient Prescriptions Marked as Taking for the 01/22/17 encounter (Initial ) with Carmen Rodríguez APRN Medication Sig Dispense Refill ??? [id number] Tablet Take by mouth. Allergies as of 01/22/2017 - Review Complete 01/22/2017 Allergen Reaction Noted ??? Aleve [naproxen sodium] 05/13/2014 BP 138/86 (BP Location (NBP): Right arm) Pulse 90 Temp 36.9 ??C (98.5 ??F) (Temporal) Resp 18 Ht 160.7 cm (5' 3.25) Wt 52.5 kg (115 lb 11.2 oz) LMP 11/20/2016 (Exact Date) SpO2 100% ? Unknown BMI 20.33 kg/m2 PE performed. Pap, chlamydia, gc performed. Uterus a/v at 9 wks gestation, + FHT A: This is a 41 y.o. G 4 P 1 female P: Labs pending including AST, Cr. Needs urine prot/cr ratio Appt made with MICMALI US to confirm dating and viability documented in this encounter Plan of Treatment Not on filedocumented as of this encounter Procedures Procedure Name Priority Date/Time Associated Diagnosis Comme nts GC/CHLAMYDIA Routine 01/22/2017 11:30 AM Encounter for ([facility]/CGP/APD/[facility]) EDT related examination, first trimester GC/CHLAM Routine 01/22/2017 11:30 AM Encounter for Results for this EDT related procedure are in examination, first the resul ts trimester section. POCT URINE Routine 01/22/2017 10:00 AM Encounter for Results for this EDT related procedure are in examination, first the resul ts trimester section. URINE CULTURE Routine 01/22/2017 10:00 AM Encounter for Result s for this EDT related procedure are in examination, first the resul ts trimester section. documented in this encounter Results (ABNORMAL) Creatinine (02/12/2017 2:21 PM EDT) athologist Signature Creatinine 0.52 (L) 0.70 - [facility] 1.20 mg/dL [facility] Comment: Please note that the pediatric reference intervals supplied above were not validated at [facility]. Results from pediatri c patients should be interpreted in conjunction to the patient's age, height and muscle mass. Estimated GFR >60 >=60 [facility] Comment: This estimated GFR (eGFR) [...] the following links into your internet browser. [email or web address] Specimen Anatomical Collection Method Collection Time Receive d Time (Source) Location / / Volume Laterality Blood specimen 02/12/2017 2:21 PM 017 2:27 (specimen) EDT PM EDT Resulting Agency Comment Spec In Lab Sherley Echeverria MD CHEMISTRY ORDERABLES Performing Organization Address City/[facility]/ZIP Code Phon e Number [address] Aspartate Aminotransferase (02/12/2017 2:21 PM EDT) P athologist Signature AST 13 0 - 30 [facility]OR[facility]ORY Specimen Anatomical Collection Method Collection Time Receive d Time (Source) Location / / Volume Laterality Blood specimen 02/12/2017 2:21 PM 017 2:27 (specimen) EDT PM EDT Resulting Agency Comment Spec In Lab Sherley Echeverria MD CHEMISTRY ORDERABLES Performing Organization Address City/[facility] Code Phon e Number [address] Varicella zoster Antibody, IgG (02/12/2017 2:21 PM EDT) P athologist Signature Varicella IgG Pos [facility] Specimen Anatomical Collection Method Collection Time Receive d Time (Source) Location / / Volume Laterality Blood specimen 02/12/2017 2:21 PM 017 6:58 (specimen) EDT AM EDT Resulting Agency Comment Spec In Lab Sherley Echeverria MD IMMUNOLOGY ORDERABLES Performing Organization Address City/[facility]/ZIP Code Phon e Number [address] HIV Screen, 4th Generation (02/12/2017 2:21 PM EDT) Analysis Performed At Patho logist Time Signature HIV-1/2 Ab and Negative Negative [facility] Comment: This 4th Generation HIV test [...] Echeverria MD IMMUNOLOGY ORDERABLES Performing Organization Address City/[facility]/ZIP Code Phon e Number [address] GC/Chlam (01/22/2017 11:30 AM EDT) P athologist Signature GC Gene Amp Negative Negative [facility] Comment: The only FDA approved specimen types for this assay are cervix, vagina, urethra and urine. GC Source Vaginal [facility] Chlamydia Gene Amp Negative Negative [facility] Comment: The only FDA approved specimen types for this assay are cervix, vagina, urethra and urine. Chlamydia Source Vaginal [facility] Specimen Anatomical Collection Method Collection Time Receive d Time (Source) Location / / Volume Laterality Vaginal 01/22/2017 11:30 01/22/2017 AM EDT 12:45 PM EDT Resulting Agency Comment Spec In Lab Sherley Echeverria MD MICROBIOLOGY - GENERAL ORDER JEANMARIE Performing Organization Address City/[facility] [place] [address] POCT urine (01/22/2017 10:00 AM EDT) Patholo gist Method Time Signature POC Urine HCG Positive Negative - Negative POC Control Internal Controls Acceptable Specimen (Source) Anatomical Collection Method Collection Time Re ceived Time Location / / Volume Laterality 01/22/2017 10:00 AM EDT Carmen Rodríguez APRN POINT OF CARE TEST ORDERABLE S Urine culture Clean Catch Urine (01/22/2017 10:00 AM EDT) Patholo gist Method Time Signature Urine Culture No growth OVIDIO TA (Less than [facility] 1,000 [facility] cfu/ml). LABORATORY Specimen (Source) Anatomical Collection Method Collection Time Re ceived Time Location / / Volume Laterality Urine specimen 01/22/2017 10:00 7 obtained by clean AM EDT 12:48 PM E DT catch procedure (specimen) Resulting Agency Comment Spec In Lab Sherley Echeverria MD MICROBIOLOGY - GENERAL ORDER JEANMARIE Performing Organization Address City/State/ZIP Code Phon e Number [facility] [place] [address] documented in this encounter Visit Diagnoses Diagnosis Encounter for related examinat ion, first trimester AMA (advanced maternal age) multigravida 35+, first trimester documented in this encounter Care Teams [address] Judge Relationship Specialty Start Date End Date Елена Coates MD PCP - General 08/29/10 [address] [place] [address] documented as of this encounter
--- OUTSIDE RECORDS SUMMARY | 2022-05-25 01:41 | XMS_ITS | Encounter Summary ---
:1975 Author Organization [facility] [place] [address] Care Team Providers Name Role Phone Елена Coates MD Primary Care Provider Reason for Visit Reason Comments Rupture of Membranes 0030 clear fluid Auth/Cert Specialty Diagnoses / Procedures Referred By Contact Refer red To Contact Diagnoses PROM (premature rupture of membranes) Procedures @ DELIVERY (WRVU 16.13) Referral ID Status Reason Start Date Expiration Date Visits Requ ested Visits Authorized [id number] 1 1 Encounter Details Date Type Department Care Team Description 08/25/2017 - Hospital Encounter Birthing David Chen estational 08/28/2017 Itzel Mercedes MD hypertension, [facility] [address] [facility] [place], [place] GYNECOLOGY [address] [place], [place] [phone] [facility] Social History Tobacco Use Types Packs/Day Years [...] Sisi Ruiz Patient Age: 41 y.o. Language: French Race: White Ethnicity: Not nor Admit date: 08/25/2017 Discharge date and time: 08/30/2017 8:49 AM Attending Physician: Betty att. providers found Discharge Physician: David Aleman MD Care Provider: Jonathan OB Follow-up Recommendations for Providers: -- Blood pressure check on POD#4 and POD#7 -- 6 week visit Inpatient Provider Contact Information: [facility] [employer] Department, Discharge Diagnoses (Hospital Problems) and Secondary [...] by the followin. AMA - low risk [place] 2. Prior LTCS for arrest of descent [...] and Events Sisi was admitted to the [facility] and after a 6 hour period of [...] resulted in delivery of a liveborn female with Apgars of 8and 9, weighing 3670g. [...] Information for the patient's : Zev Ruiz girl [[id number]] INFORMATION Baby carlos Ruiz 08/26/2017 3:15 PM by Lower Segment Transverse Sex: female Gestational Age: 39w6d Measurements: Weight: 8 lb 1.5 oz (3670 [...] mouth. 325-650 mg Refills: 0 vitamin with xigvipqg-Dk-Gsib-FA Tab Take by mouth. Refills: 0 Smoking [...] Depression Contact Numbers: If you see an home health care physician call: [phone] 9 am - 5 pm, after 5 pm If you see a chief substation operator call: [phone] all hours If you see a family practitioner call: [phone] all hours If you were transferred to our institution for delivery and cannot reach your local OB provider, call the home health care physician numbers. General Instructions Nursing Inpatient Progress C [...] this in detail. Call your doctor or chief substation operator for: ??? Fever more than 100.5 [...] follow up appointment. [facility] at any time for guidance or for answers to questions that come up prior to you follow up appointment. Your [facility] Provider can be reached during office hours at ??? Midwives ??? Obstetricians ??? [facility] AFTER OFFICE HOURS for the home health care physician or chief substation operator senior telecommunications specialist Provider electronic signature confirms that discharge instructions were reviewed with the patient. Acopy was printed and given to the patient. Future Appointments and Orders Future Orders Complete By Expires Follow-up [[id number] Custom] As directed Process Instructions: Scheduling Instructions: Comments: - gestational diabetic counseling with ferris wheel operator at the time of the visit if [...] this in detail. Call your doctor or chief substation operator for: ??? Fever more than 100.5 [...] follow up appointment. You may call the [facility] at any time for guidance or for answers to questions that come up prior to you follow up appointment. Your [facility] Provider can be reached during office hours at ??? Midwives ??? Obstetricians ??? [facility] AFTER OFFICE HOURS for the home health care physician or chief substation operator senior telecommunications specialist Provider electronic signature confirms that discharge instructions were reviewed with the patient. Acopy was printed and given to the patient. Patient Marlys Hdez MD - 08/28/2017 8:28 [...] Depression Contact Numbers: If you see an home health care physician call: [phone] 9 am - 5 pm, after 5 pm If you see a chief substation operator call: [phone] all hours If you see a family practitioner call: [phone] all hours If you were transferred to our institution for delivery and cannot reach your local OB provider, call the home health care physician numbers. documented in this encounter Medications at Time of Discharge Medication Sig Dispensed Refills Start Date End Date oxyCODONE (ROXICODONE) 5 Take 1 tablet by 16 tablet 0 08/2810/09/2017 mg Tablet mouth every 4 hours as needed for Pain (Severe pain (7-10)). acetaminophen (TYLENOL) Take 325-650 mg by 0 09/0610/09/2017 325 mg Tablet mouth. Take by mouth. 0 05/22/2019 Vpkdigar-Vh-Mlm-Fe-FA Tablet documented as of this encounter Progress Notes Ledy Mauro RN - 08/28/2017 12:06 PM EST 08/28/17 1205 - Reviewed d/c instructions with patient and all questions answered. Prescriptions called to [facility] pharmacy for pt upon d/c. Follow up appts reviewed with pt as well. Kat West - 08/28/2017 6:22 AM EST Delivery Note Information for the patient's : Joseph, Baby girl [[id number]] Delivery Date and Time:08/26/2017 3:15 PM Delivery [...] Patient is doing well without problems. ??? nutrition: breast ??? 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 Pump covered by insurance. Helen Dos Santos RN CM Marlys Farrar MD - 08/27/2017 9:44 AM EST Delivery Note Information for the patient's : Joseph, Baby girl [[id number]] Delivery Date and Time:08/26/2017 3:15 PM Delivery [...] Patient is doing well without problems. ??? nutrition: breast ??? Contraception: undecided, discussing with [...] 130, moderate variability, + accels, no decels Sherwood: q2 Pitocin: now off Urine protein:creatinine: 0.3 [...] hr BP: (101-146)/(61-87) Cervix Exam: Dilation: 8 (11/20/17 1144) Effacement: 100 Station: -1 Cervical Position: Posterior Consistency: Soft Osorio Score: 9 OB Examiner: Marlys Farrar Heart Rate Interpretation: FHT: Baseline 135, moderate variability, + accels, no decels Sherwood: q2-5 minutes, MVUs 200+/10 minutes Pitocin: running [...] moderate variability, + accels, rare early decels Sherwood: q2-5 minutes, MVUs 200+/10 minutes Pitocin: running [...] hemorrhage. Marlys Farrar MD PGY-1 08/26/2017 Marlys Garcia MD - 08/26/2017 8:15 AM EST Labor [...] moderate variability, + accels, rare early decels Sherwood: q2-3 minutes, MVUs 200+/10 minutes Pitocin: running [...] 135, moderate variability, + accels, no decels Sherwood: dfficult to trace, q3-5 minutes Pitocin: running [...] section if she fails to make cervical waste/materials exchange specialist the next 4 hours. She is in [...] 130, moderate variability, + accels, no decels Sherwood: q3 minutes Pitocin: running at 8mL/hr GBS [...] 135, moderate variability, + accels, no decels Sherwood: q3 minutes Pitocin: running at 6mL/hr GBS [...] 125, moderate variability, + accels, no decels Sherwood: q2 mins GBS Lab Results Component Value [...] 125, moderate variability, + accels, no decels Sherwood: q3 mins GBS Lab Results Component Value [...] by the followin. AMA - low risk [place] 2. Prior LTCS for arrest of descent [...] Medication Sig Dispense Refill Last Dose ??? Ynvnpzdh-Lm-Khn-Fe-FA Tablet Take by mouth. 08/24/2017 at Unknown [...] 130, Variability: moderate, Accels: yes, Decels: none Sherwood: q3-6 minutes Category: 1 Lab Results Component Value Date ABORH A Pos 02/12/2017 HCT 33.3 (L) 06/04/2017 HGB 12.4 06/04/2017 MCV 87.1 02/12/2017 HEPBSAG Negative 02/12/2017 RUBLIGG Positive 02/12/2017 GCAMP Negative 01/22/2017 CHLMGENE Negative 01/22/2017 AST 19 08/25/2017 Lab Results Component Value Date [id number] 153 (External Lab) 06/06/2017 LABGLUC2 156 (EXTERNAL/ABN) [...] breast pump and one was ordered through [facility]. Current Functional Ability: post- Functional Status Prior to Admission: full Home Environment: Pt lives at home with FRANCK and their 8 y/o SO. 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 FOB works with [employer] and has flexibility with his time off. Social & Family Supports/Community Resources: Pt reports that both paternal and maternal grandparents are very supportive. FIREARMS MODEL MAKER informed pt of formerly [facility], [facility] parent child center but pt declined [...] Specific Information: none Health/Prescription Coverage: Primary Insurance: [employer] OOS Secondary Insurance: [employer] [place] Prescription Coverage: yes Preferred Pharmacy: [facility] Other: none Primary Care Provider: Елена Coates MD [phone] Patient/Caregiver Goals of Treatment: a healthy baby [...] transition of care planning. MONICA Martinez Pager: [phone] Plan of Care - Barby Solo RN [...] Operative Note Patient Name: Sisi Ruiz : [id number] MR#: [id number] Case Date: 08/26/2017 Surgeon: Surgeon(s) and Role: [...] closure: Yes L&D Delivery Note - Kat Wets - 08/26/2017 4:10 PM EST Section Delivery [...] uncomplicated repeat low transverse section. Viable female . APGARSof 8 and 9. Weight of 3670g. Blood loss estimated at 500ccs. Please see op note for further details. KAT WEST MD PGY3 08/26/2017 Information for the patient's : Zev Ruiz [[id number]] DELIVERY SUMMARY FOR Baby carlos Ruiz (please [...] loss (mL): 500 Repair suture: None Delivery () Delivery Date: 08/26/17 Delivery Time: 151 Sex: Female Shoulder Dystocia Shoulder dystocia present?: No Delivery Information Delivery Location: [place] Delivering Clinician: KAT WEST ICAnahy Staff Present: Yes Other Personnel: Provider Role MARCELO GALLEGOS Delivery Nurse AMIRA PALMER Apron Man ARTURO DECKER Delivery Assist KAT WEST Resident [...] Method: Suctioning Suctioning Method: Bulb syringe Maternal [place] Feeding and Skin to Skin Maternal Choice for (s) Feeding on Admission: Skin to skin initiation date/time: 1520 Skin to skin with: Mother Medications Medications Given: vitamin K, erythromycin Measurements Weight: 3670 g Length: 0.521 m Head Circumference: 0.36 m Observed Anomalies: Sacral dimple; able to see base. Enlarged labia minora Placenta Date and Time: 08/26/2017 1316 Removal: Manual Removal Appearance: Intact Labor Length No data filed Op Note - Kat West - 08/26/2017 4:10 PM EST Operative Note Patient Name: Sisi Ruiz : [id number] MR#: [id number] ?? Case Date: 08/26/2017 ?? Surgeon: Surgeon(s) [...] The was handed off to the [facility] pediatricians, who assigned Apgars of 8 and [...] MD 08/27/2017 Plan of Care - Marcelo Galleogs RN - 08/25/2017 12:17 PM EST Problem: [...] (ABNORMAL) Differential, Automated (08/27/2017 2:00 AM EST) [facility] Method Time Signature Neutrophils % 84.8 % [facility] Neutr Abs (ANC) 11.78 (H) 1.70 - [facility] 6.10 [facility] x10(3)/[facility] LABORATORY Lymphocytes % 10.1 % [facility] Lymphocytes Abs 1.4 0.9 - 3.2 [facility] x10(3)/[facility] LABORATORY Monocytes % 4.2 % [facility] Monocyte Abs 0.6 0.3 - 0.9 [facility] x10(3)/[facility] LABORATORY Eosinophils % 0.3 % [facility] Eosinophils Abs 0.0 0.0 - 0.4 [facility] x10(3)/[facility] LABORATORY Basophils % 0.2 % [facility] Basophils Abs 0.0 0.0 - 0.1 [facility] x10(3)/[facility] LABORATORY Immature Gran % 0.40 % [facility] Comment: Immature granulocytes(IG's)percentage an d absolute count will include metamyelocytes, myelocytes, and promyelo cytes. Blood smears from CBCs yielding IG's will be scanned manually for concor dance. If this scan disagrees with the automated IG or if promyelocytes are not ed, a manual differential will be performed. Ashley Gran Abs 0.05 (H) 0.00 - 0.04 x10(3)/[facility] LABORATORY Specimen Anatomical Collection Method Collection Time Receive d Time (Source) Location / / Volume Laterality Blood specimen 08/27/2017 2:00 AM 017 2:09 (specimen) EST AM EST Resulting Agency Comment Spec In Lab David Aleman MD HEMATOLOGY ORDERABLES Performing Organization Address City/State/ZIP [place] [address] (ABNORMAL) Hemogram (08/27/2017 2:00 AM EST) Analysis Performed At Patho logist Time Signature WBC 13.9 (H) 4.0 - 9.5 [facility] LABORATORY RBC 3.50 (L) 4.00 - [facility] 5.21 [facility] x10(6)/[facility] LABORATORY Hemoglobin 12.1 11.7 - [facility] g[facility]dL [facility] LABOR[facility]ORY Hematocrit 33.2 (L) 35.7 - [facility] 45.8 % [facility] LABORATORY MCV 94.9 (H) 82.6 - [facility] 94.4 [facility] LABORATORY MCH 34.6 (H) 27.1 - [facility] 32.0 pg [facility] LABORATORY MCHC 36.4 (H) 31.7 - [facility] 35.0 gm/dL [facility] LABORATORY Platelets 121 (L) 145 - 357 [facility] x10(3)/[facility] LABORATORY RDWSD 46.0 37.0 - [facility] 46.0 [facility] LABORATORY RDWCV 13.4 11.5 - [facility] CELY 14.1 % [facility] LABORATORY MPV 10.5 7.6 - 12.9 [facility] LABORATORY nRBC % Auto 0.0 % [facility] nRBC Abs Auto 0.000 0.000 - [place] 0.000 [facility] x10(3)/[facility] LABORATORY Specimen Anatomical Collection Method Collection Time Receive d Time (Source) Location / / Volume Laterality Blood specimen 08/27/2017 2:00 AM 017 2:09 (specimen) EST AM EST Resulting Agency Comment Spec In Lab David Aleman MD HEMATOLOGY ORDERABLES Performing Organization Address City/[facility]/ZIP Code Phon e Number [address] Specimen to Pathology (NON-OR) (08/26/2017 4:28 PM EST) Specimen Anatomical Collection Method Collection Time Receive d Time (Source) Location / / Volume Laterality AP Specimen 08/26/2017 4:28 PM 7 4:28 EST PM EST Narrative [facility] - 08/26/2017 4:28 PM EST Specimen requisition ordered. ??Separate Pathology report to follow David Aleman MD PATHOLOGY/CYTOLOGY ORDERABLE S Performing Organization Address City/[facility]/[place] [address] Surgical Pathology Report (08/26/2017 1:45 PM EST) Component Value Ref Test Analysis Performed At [facility] Range Method Time Signature Surgical [id number] ? Location: BP; BP12; A [facility] Report The signing pathologist has (i) examined the relevant preparation(s) for the [facility] specimen(s) and (ii) rendered or confirmed the diagnosis(es) . HOSPITAL LABORATORY . ?Surgic al Pathology DIAGNOSIS A - Term placenta, 578 grams. ?Grade 2/stage 2 chorioamnionitis with patchy bas ophilic choriodecidual ?necrosis. ?Mild meconium effect noted on amnion. ?Three vessel umbilical cord with velamentous mar ginal insertion and no ?funisitis. Electronically signed by: ??Yobany Leach MD Verified: ??09/02/2017 ?Pathologist Performed at: ??-[facility] Dept. of Pathology, [place], [place] CLINICAL INFORMATION Specimen Submitted: A - [...] cm; three vessels; velamentous/marginal ins ertion. Surface: [place] to red w ith prominent vasculature and [...] Organization Address City/State/ZIP [place] [address] (ABNORMAL) Differential, Automated (08/26/2017 8:00 AM EST) [facility] gist Method Time Signature Neutrophils % 85.7 % [facility] Neutr Abs (ANC) 11.79 (H) 1.70 - [facility] 6.10 [facility] x10(3)/[facility] LABORATORY Lymphocytes % 8.9 % [facility] Lymphocytes Abs 1.2 0.9 - 3.2 [facility] x10(3)/[facility] LABORATORY Monocytes % 4.6 % [facility] Monocyte Abs 0.6 0.3 - 0.9 [facility] x10(3)/[facility] LABORATORY Eosinophils % 0.0 % [facility] Eosinophils Abs 0.0 0.0 - 0.4 [facility] x10(3)/[facility] LABORATORY Basophils % 0.2 % [facility] Basophils Abs 0.0 0.0 - 0.1 [facility] x10(3)/[facility] LABORATORY Immature Gran % 0.60 % [facility] Comment: Immature granulocytes(IG's)percentage an d absolute count will include metamyelocytes, myelocytes, and promyelo cytes. Blood smears from CBCs yielding IG's will be scanned manually for concor dance. If this scan disagrees with the automated IG or if promyelocytes are not ed, a manual differential will be performed. Ashley Gran Abs 0.08 (H) 0.00 - 0.04 x10(3)/[facility] LABORATORY Specimen Anatomical Collection Method Collection Time Receive d Time (Source) Location / / Volume Laterality Blood specimen 08/26/2017 8:00 AM 017 8:13 (specimen) EST AM EST Resulting Agency Comment Spec In Lab David Aleman MD HEMATOLOGY ORDERABLES Performing Organization Address City/State/ZIP [place] [address] (ABNORMAL) Hemogram (08/26/2017 8:00 AM EST) Analysis Performed At Patho logist Time Signature WBC 13.8 (H) 4.0 - 9.5 [facility] x10(3)/[facility] LABORATORY RBC 3.82 (L) 4.00 - [facility] 5.21 [facility] x10(6)/[facility] LABORATORY Hemoglobin 13.6 11.7 - [facility] 15.[facility] gm/dL [facility] LABORATORY Hematocrit 36.2 35.7 - [facility] 45.8 % [facility] LABORATORY MCV 94.8 (H) 82.6 - [facility] 94.4 fL [facility] LABORATORY MCH 35.6 (H) 27.1 - [facility] 32.0 pg [facility] LABORATORY MCHC 37.6 (H) 31.7 - [facility] 35.0 gm/dL [facility] LABORATORY Platelets 131 (L) 145 - 357 [facility] x10(3)/[facility] LABORATORY RDWSD 46.6 (H) 37.0 - [facility] 46.0 [facility] LABORATORY RDWCV 13.5 11.5 - [facility] 14.1 % [facility] LABORATORY MPV 10.9 7.6 - 12.9 [facility] LABORATORY nRBC % Auto 0.0 % [facility] nRBC Abs Auto 0.000 0.000 - [facility] 0.000 [facility] x10(3)/[facility] LABORATORY Specimen Anatomical Collection Method Collection Time Receive d Time (Source) Location / / Volume Laterality Blood specimen 08/26/2017 8:00 AM 017 8:13 (specimen) EST AM EST Resulting Agency Comment Spec In Lab David Aleman MD HEMATOLOGY ORDERABLES Performing Organization Address City/[facility]/ZIP Code Phon e Number [address] Protein/Creatinine Ratio, urine (08/26/2017 1:25 AM EST) P athologist Signature U Creatinine 40 mg/dL [facility] U Protein Ran 8 0 - 12 [facility] mg/dL [facility] LAB[facility]ORY Prot/Cre Ratio 0.2 ratio [facility] Specimen Anatomical Collection Method Collection Time Receive d Time (Source) Location / / Volume Laterality Urine specimen 08/26/2017 1:25 AM 017 2:09 (specimen) EST AM EST Resulting Agency Comment Spec In Lab David Aleman MD URINE ORDERABLES Performing Organization Address City/[facility]/ZIP Code Phon e Number [address] (ABNORMAL) Hemogram (08/25/2017 3:15 PM EST) Analysis Performed At Patho logist Time Signature WBC 13.4 (H) 4.0 - 9.5 [facility] x10(3)/[facility] LABORATORY RBC 4.09 4.00 - [facility] 5.21 [facility] x10(6)/[facility] LABORATORY Hemoglobin 14.2 11.7 - [facility] 15.5 gm/dL [facility] LABORATORY Hematocrit 38.2 35.7 - [facility] 45.8 % [facility] LABORATORY MCV 93.4 82.6 - [facility] 94.4 [facility] LABORATORY MCH 34.7 (H) 27.1 - [facility] [facility] 32.0 pg [facility] LABORATORY MCHC 37.2 (H) 31.7 - [facility] 35.0 gm/dL [facility] LABORATORY Platelets 155 145 - 357 [facility] x10(3)/[facility] LABORATORY RDWSD 45.1 37.0 - [facility] [facility] 46.0 [facility] LABORATORY RDWCV 13.3 11.5 - [place] [facility] 14.1 % [facility] LABORATORY MPV 11.0 7.6 - 12.9 [facility] LABORATORY nRBC % Auto 0.0 % [facility] nRBC Abs Auto 0.000 0.000 - [facility] 0.000 [facility] x10(3)/[facility] LABORATORY Specimen Anatomical Collection Method Collection Time Receive d Time (Source) Location / / Volume Laterality Blood specimen 08/25/2017 3:15 PM 017 3:39 (specimen) EST PM EST Resulting Agency Comment Spec In Lab David Aleman MD HEMATOLOGY ORDERABLES Performing Organization Address City/State/[place] [address] (ABNORMAL) Creatinine (08/25/2017 3:15 PM EST) Analysis Performed At Patho logist Time Signature Creatinine 0.64 (L) 0.70 - [place] [facility] 1.20 mg/dL [facility] LABORATORY Estimated GFR >60 >=60 [facility] Comment: The reported eGFR should be multiplied b y 1.2 for patients. The MDRD is not an appropriate measure o f renal function for patients with body mass extremes or in patients with acute kidney failure. http://[employer]/DHnkdep http://[employer]/DHMCnkf Specimen Anatomical Collection Method Collection Time Receive d Time (Source) Location / / Volume Laterality Blood specimen 08/25/2017 3:15 PM 017 3:39 (specimen) EST PM EST Resulting Agency Comment Spec In Lab David Aleman MD CHEMISTRY ORDERABLES Performing Organization Address City/State/ZIP Code Phon e Number [address] Aspartate Aminotransferase (08/25/2017 3:15 PM EST) P athologist Signature AST 18 0 - 30 [facility] LABOR[facility]ORY Specimen Anatomical Collection Method Collection Time Receive d Time (Source) Location / / Volume Laterality Blood specimen 08/25/2017 3:15 PM 017 3:39 (specimen) EST PM EST Resulting Agency Comment Spec In Lab David Aleman MD CHEMISTRY ORDERABLES Performing Organization Address City/[facility]/ZIP Code Phon e Number [address] (ABNORMAL) Differential, Automated (08/25/2017 7:30 AM EST) Patholo gist Method Time Signature Neutrophils % 80.8 % [facility] Neutr Abs (ANC) 9.63 (H) 1.70 - [facility] 6.10 [facility] x10(3)/[facility] LABORATORY Lymphocytes % 12.4 % [facility] Lymphocytes Abs 1.5 0.9 - 3.2 [facility] x10(3)/[facility] [facility] Monocytes % 5.0 % [facility] LABORATORY Monocyte Abs 0.6 0.3 - 0.9 [facility] x10(3)/[facility] LABORATORY Eosinophils % 0.2 % [facility] LABORATORY Eosinophils Abs 0.0 0.0 - 0.4 [facility] x10(3)/[facility] LABORATORY Basophils % 0.3 % [facility] LABORATORY Basophils Abs 0.0 0.0 - 0.1 [facility] x10(3)/[facility] LABORATORY Immature Gran % 1.30 % [facility] LABORATORY Comment: Immature granulocytes(IG's)percentage an d absolute count will include metamyelocytes, myelocytes, and promyelo cytes. Blood smears from CBCs yielding IG's will be scanned manually for concor dance. If this scan disagrees with the automated IG or if promyelocytes are not ed, a manual differential will be performed. Ashley Gran Abs 0.16 (H) 0.00 - 0.04 x10(3)/[facility] LABORATORY Specimen Anatomical Collection Method Collection Time Receive d Time (Source) Location / / Volume Laterality Blood specimen 08/25/2017 7:30 AM 017 7:55 (specimen) EST AM EST Resulting Agency Comment Spec In Lab David Aleman MD HEMATOLOGY ORDERABLES Performing Organization Address City/State/ZIP [place] [address] (ABNORMAL) Hemogram (08/25/2017 7:30 AM EST) Analysis Performed At Patho logist Time Signature WBC 11.9 (H) 4.0 - 9.5 [facility] x10(3)/[facility] LABORATORY RBC 4.01 4.00 - [facility] CELY 5.21 [facility] x10(6)/[facility] LABORATORY Hemoglobin 13.7 11.7 - [facility] CELY 15.5 gm/dL [facility] LABORATORY Hematocrit 37.6 35.7 - [facility].8 % [facility] LABORATORY MCV 93.8 82.6 - [facility]4 [facility] LABORATORY MCH 34.2 (H) 27.1 - [place] 32.0 pg [facility] LABORATORY MCHC 36.4 (H) 31.7 - [facility] 35.0 gm/dL [facility] LABORATORY Platelets 149 145 - 357 [facility] x10(3)/[facility] LABORATORY RDWSD 45.4 37.0 - [place] 46.0 [facility] LABORATORY RDWCV 13.2 11.5 - [facility] CELY 14.1 % [facility] LABORATORY MPV 11.4 7.6 - 12.9 [facility] LABORATORY nRBC % Auto 0.0 % [facility] LABORATORY nRBC Abs Auto 0.000 0.000 - [place] 0.000 [facility] x10(3)/[facility] LABORATORY Specimen Anatomical Collection Method Collection Time Receive d Time (Source) Location / / Volume Laterality Blood specimen 08/25/2017 7:30 AM 11/19/2 017 7:55 (specimen) EST AM EST Resulting Agency Comment Spec In Lab David Aleman MD HEMATOLOGY ORDERABLES Performing Organization Address City/[facility]/[place] [address] (ABNORMAL) Creatinine (08/25/2017 5:00 AM EST) Analysis Performed At Patho logist Time Signature Creatinine 0.65 (L) 0.70 - [facility] 1.20 mg/dL [facility] LABORATORY Estimated GFR >60 >=60 [facility] LABORATORY Comment: The reported eGFR should be multiplied b y 1.2 for patients. The MDRD is not an appropriate measure o f renal function for patients with body mass extremes or in patients with acute kidney failure. http://Employma/DHnkdep http://Employma/DHMCnkf Specimen Anatomical Collection Method Collection Time Receive d Time (Source) Location / / Volume Laterality Blood specimen 08/25/2017 5:00 AM 017 5:29 (specimen) EST AM EST Resulting Agency Comment Spec In Lab David Aelman MD CHEMISTRY ORDERABLES Performing Organization Address City/[facility]/[place] [address] Aspartate Aminotransferase (08/25/2017 5:00 AM EST) P athologist Signature AST 19 0 - 30 [facility] unit/L [facility] LABORATORY Specimen Anatomical Collection Method Collection Time Receive d Time (Source) Location / / Volume Laterality Blood specimen 08/25/2017 5:00 AM 017 5:29 (specimen) EST AM EST Resulting Agency Comment Spec In Lab David Aleman MD CHEMISTRY ORDERABLES Performing Organization Address City/[facility]/[place] [address] (ABNORMAL) Protein/Creatinine Ratio, urine (08/25/2017 1:25 AM EST) P athologist Signature U Creatinine 48 mg/dL [facility] LABORATORY U Protein Ran 15 (H) 0 - 12 [facility] mg/dL [facility] LABORATORY Prot/Cre Ratio 0.3 ratio [facility] LABORATORY Specimen Anatomical Collection Method Collection Time Receive d Time (Source) Location / / Volume Laterality Urine specimen Urine / Unknown 08/25/2017 1:25 AM 08/08 8:01 (specimen) EST AM EST Resulting Agency Comment Spec In Lab Katarzyna B Libertad SCHRADER URINE ORDERABLES Performing Organization Address City/State/ZIP [place] [address] documented in this encounter Visit Diagnoses Diagnosis Gestational hypertension, third trimeste r Previous section Other postprocedural status Elevated blood pressure reading in offic e with white coat syndrome, without diagnosis of hypertension AMA (advanced maternal age) multigravida 35+ Elderly multigravida with antepartum con dition or complication PROM (premature rupture of membranes) Premature rupture of membranes in pregna ncy, unspecified as to episode of care documented in this encounter Admitting Diagnoses Diagnosis PROM [...] Given 08/27/2017 2:00 PM EST 650 mg azithromycin (ZITHROMAX) 500 mg New Bag 08/26/2017 2:16 PM EST 499.8 mg 255 mL/hr in sodium chloride 0.9% 255 mL 500 mg, Intravenous, ONCE, 1 dose, On Sat08/26/17 at 1430, Administer over 60 Minutes, Indication for (Active or Suspected): Prophylaxis docusate sodium (COLACE) capsule 100 mg Given 08/28/2017 8:37 AM EST 100 mg 100 mg, Oral, 2 TIMES DAILY, First dose on Sat08/26/17 at 2100, Until Discontinued, Routine Given 08/27/2017 9:34 PM EST 100 mg Given 08/27/2017 8:22 AM EST 100 mg fentaNYL 50mcg/mL injection Given 08/25/2017 5:43 PM EST 501 mcg 50 mcg, Intravenous, EVERY 30 MIN PRN, 4 doses, Starting on Sat08/25/17 at 1511, Until Sat08/26/17 at 1628, Pain, Routine Given 08/25/2017 4:57 PM EST 50 mcg Given 08/25/2017 3:18 PM EST 50 mcg HYDROmorphone (DILAUDID) injection 0.2 m g Given 08/26/2017 5:03 PM EST 0.2 mg 0.2 mg, Intravenous, ONCE, 1 dose, On Sat08/26/17 at 1715, Routine ketorolac (TORADOL) injection 15 mg Given 08/27/2017 5:42 PM EST 15 mg 15 mg, Intravenous, EVERY 6 HOURS, 4 doses, First dose on Sat08/26/17 at 2200, Last dose on Sat08/27/17 at 1600, Routine Given 08/27/2017 11:22 AM EST 15 mg Given 08/27/2017 4:29 AM EST 15 mg lactated Ringers infusion New Bag 08/26/2017 8:24 AM EST 75 mL/hr 75 mL/hr 75 mL/hr, Intravenous, CONTINUOUS, Starting on Sat08/25/17 at 0645, Until Sat08/26/17 at 1628 New Bag 08/25/2017 7:34 PM EST 75 mL/hr 75 mL/hr New Bag 08/25/2017 6:47 AM EST 75 mL/hr 75 mL/hr morphine 10 mg/mL carpuject 10 mg Given 08/25/2017 7:58 PM EST 10 mg Right Deltoid 10 mg, Intramuscular, ONCE, 1 dose, On Sat08/25/17 at 2000, Routine morphine 10 mg/mL carpuject 5 mg Given 08/25/2017 7:59 PM EST 5 mg 5 mg, Intravenous, ONCE, 1 dose, On Sat08/25/17 at 2000, Routine ondansetron (ZOFRAN) injection 4 mg 4 [...] Given 08/28/2017 1:10 AM EST 5 mg oxytocin (PITOCIN) 30 Rate/Dose 08/26/2017 1:41 16 marlyn-units/min 1 6 mL/hr units in sodium chloride Change PM EST 0.9% 500 mL infusion 1-30 marlyn-units/min (1-30 mL/hr), Intravenous, CONTINUOUS, Starting on Sat08/25/17 at 0645, Until Sat08/26/17 at 1628, Piggyback into Lactated Ringers; Start at 2 milliunits/minute and adjust by 2 milliunits/minute every 30 minutes to achieve contractions that are every 2-3 minutes, lasting 60-90 seconds with 1 minute resting tone between contractions palpating strong. Oxytocin may not be initiated until: - 1 hour after Cervidil is removed - 4 hours after last misoprostol dose is given, Routine Rate/Dose Change 08/26/2017 11:30 AM EST 18 marlyn-units/min 18 mL/h r Rate/Dose Change 08/26/2017 10:09 AM EST 17 marlyn-units/min 17 mL/h r polyethylene glycol (MIRALAX) packet 17 g Given 08/27/2017 8:23 AM EST 17 g 17 g, Oral, DAILY PRN, Starting on Sat08/26/17 at 1628, Until Sat08/28/17 at 1507, Constipation, Routine promethazine (PHENERGAN) Given 08/25/2017 7:56 PM EST 12.5 mg Left Deltoid injection 12.5 mg 12.5 mg, Intramuscular, ONCE, 1 dose, On Sat08/25/17 at 2000, VESICANT - Dilute with a minimum of 10 mL saline. LARGE VEIN only. Inject over 10 minutes into the farthest port of a running IV infusion. Remain with the patient and STOP infusion immediately if patient reports burning. Avoid extravasation., Routine documented in this encounter Active and Recently Administered Medications Times are shown in EST. Scheduled Medication Order 08/26/2017 08/27/2017 08/28/2017 azithromycin (ZITHROMAX) 500 mg in sodium chloride 0.9 % 255 mL (COMPLETED) 1416 (New Bag - Provider: Marcelo Gallegos, RORY)1516 (Stopped - Provider: Barby Solo RN) 500 mg, Intravenous, ONCE, 1 dose, Sat10/26/16 at 1430, Administer over 60 Minutes, Indication for (Active or Suspected): Prophylaxis docusate sodium (COLACE) capsule 100 mg 2151 (Given - Provider: Barby Solo RN) 0822 [...] Solo RN) 0429 (Given - Provider: Barby lofton, RORY)1122 (Given - Provider: Jamia Decker)1742 (Given - [...] Harper RN)0256 (Rate/Dose Change - Provider: Lilia Harper, RORY)0411 (Rate/Dose Change - Provider: Lilia Harper RN)0440 (Rate/Dose Change - Provider: Khloe Aleman RN) [...] Gallegos RN) 0208 (Given - Provider: Barby lofton, RORY)0820 (Given - Provider: Jamia Decker)1400 (Given - Provider: Destiny Burgos RN)2134 (Given - Provider: Barby Solo, RORY) 0535 (Given - Provider: Barby lofton, RORY) 650 mg, Oral, EVERY 6 HOURS PRN, [...] Solo RN) 0208 (Given - Provider: Barby Solo, RORY)0821 (Given - Provider: Jamia Decker)1306 (Given - Provider: Destiny Burgos RN)1742 (Given - Provider: Destiny Burgos RN)2134 (Given - Provider: Barby Solo RN) 0110 (Given - Provider: Barby Solo, RORY)0535 (Given - Provider: Barby Solo RN)0936 (Given [...] Routine documented in this encounter Care Teams Doll Eye Setter Relationship Specialty Start Date End Date Елена Coates MD PCP - General 08/29/10 [address] [place] [address] documented as of this encounter
--- OUTSIDE RECORDS SUMMARY | 2022-05-25 01:41 | XMS_ITS | Encounter Summary ---
:1975 Author Organization [facility] [place] [address] Care Team Providers Name Role Phone Елена Coates MD Primary Care Provider Reason for Visit Reason Comments Skin Check Encounter Details Date Type Department Care Team Description 05/13[facility]2014 [facility] Mini TERRELL [address] [facility] [address] [facility] Rodolfo B DERMATOLOGY [place], [place] [id number] [phone] Social History Tobacco Use Types Packs/Day Years Used Date Never Smoker Sex Assigned at Date Recorded Not on file documented as of this encounter Patient Instructions Patient InstructionsSo Conteh LPN - 05/13/2014 9:29 AM EDT Images from the original note were not included. [facility] Moles: After Your Visit Your Care Instructions [...] color and feel of the skin. ?? credentialing coordinator front of a full-length mirror. Look carefully [...] more? Visit our health information library at [email or web address] You can also view health information on [employer], your personal patient account. Log in or sign up today. Enter [id number] in the search box to learn more about Moles: After Your Visit. ?? [phone] [employer]. Care instructions adapted under license by [facility]. This care instruction is for use with your licensed healthcare professional. If you have questionsabout a medical condition or this instruction, always ask your healthcare professional. [employer] disclaims any warranty or liability for your use of this information. Content Version: 9.9.475962; Last Revised: May 12, 2013 documented in this encounter Progress Notes Dmitriy Becker MD - 05/13/2014 9:43 AM EDT Problem: Repeat skin checkup/mole examination. Sisi follows up and is doing well. She is now 38. She is here for repeat skin checkup. She reminds me that she is originally from the [facility], and a sand operator there had advised her to have regular checkups on her moles. There is a family history of nonmelanoma skin cancer, but not of melanoma. Physical examination reveals a pleasant 38-year-old woman who has brown eyes and brown hair with recessed frontal hairline. She has very sensitive skin and a number of Alden's nevi of the right mid upper back. These are in the 8 mm range, but do appear benign. Careful examination of the head and the neck, the chest, the back, the hands, arms, forearms, thighs, calves, and toe web spaces is benign. 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 Her nevi are junctional, in the 3 to 4 mm diameter range, and appear benign. She does have a solar lentigo on the right cheek. Assessment and Plan: 1. Solar lentigo, right cheek. a. Discussed the options of topical versus LN2 for these, but discussed the slow response time. b. Would recommend instead that patient continue careful sunscreen applications, wearing a hat and using a cover-up for this site. c. Patient reassured about her benign skin examination. d. Would recommend return to clinic here in another three years for repeat check. Return to clinic reminder three years. documented in this encounter Plan of Treatment Not on filedocumented as of this encounter Visit Diagnoses Diagnosis Nevus - Primary Benign neoplasm of skin, site unspecifie d documented in this encounter Care Teams Blueprint Maker Relationship Specialty Start Date End Date Елена Coates MD PCP - General 08/29/10 [address] [place] [address] documented as of this encounter
--- OUTSIDE RECORDS SUMMARY | 2022-05-25 01:41 | XMS_ITS | Encounter Summary ---
:1975 Author Organization [facility] Address [facility] [place] [address] Care Team Providers Name Role Phone Елнеа Coates MD Primary Care Provider Encounter Details Date Type Department Care Team Description 07/04/2017 Hospital Encounter Ultrasound at [facility] Beverly Rodríguez, Marginal insertion [facility] FREE LANCE ARTIST of umbilical cord Drive [facility] [place], [place] [address] of mother [id number] OBSTETRICS & [phone] [place] [address] Social History Tobacco Use Types Packs/Day Years [...] Tablet mouth. Take by mouth. 0 05/22/2019 [id number] Tablet documented as of this encounter Plan of Treatment Not on filedocumented as of this encounter Procedures Procedure Name Priority Date/Time Associated Diagnosis Comme nts OB FOLLOW UP Routine 07/04/2017 4:06 PM Marginal insertion Results for this EDT of umbilical cord procedure are in affecting management the res ults of mother section. documented in this encounter Results US OB Follow Up Evaluation (07/04/2017 4:06 PM EDT) Anatomical Region Laterality Modality Pelvis, Abdomen Ultrasound Specimen (Source) Anatomical Collection Method Collection Time Re ceived Time Location / / Volume Laterality 07/04/2017 4:04 PM EDT Impressions 07/04/2017 4:20 PM EDT 3rd Trimester Summary Single intrauterine with a ge stational age of 32w 2d based on Clinical SREEKANTH Composite age based on the current ultr asound alone is 33w 6d. Estimated weight corresponds to t he 83th percentile for 32w 2d. Current growth parameters are consisten t with prior dating indicating normal growth. Amniotic fluid volume is Normal, CONSTANZA = 15.41 cm, MVP = 4.51 cm Anatomical survey is limited due to the late gestational age. I ??viewed the images and agree with tereza roman interpretation. ? Janay Joiner MD Electronically Signed Final Report ?? 04:19 pm Narrative 07/04/2017 4:20 PM EDT OBSTETRICS REPORT ? (Signed Final 07/04/2017 04:19 pm) PATIENT INFO: ID #: ? [id number] ?: ??[birth year] (41 yrs) Name: ? ELISEO RUIZ ? Visit Date: 07/04/2017 04:04 pm PERFORMED BY: Performed By: ? Elida Michaels RDMS Attending: ?Rhys TERRELL, Janay Looney Resident: ? Gaudencio Vera MD, Ledy Bailey Referred By: ?BEVERLY RODRÍGUEZ Location: ? [place] SERVICE(S) PROVIDED: ??UOBFOL - Efw - Growth - [place] - I [id number] ? [id number] INDICATIONS: ??32 weeks gestation of ?Z3A.32 ??marginal cord insertion, AFV, EFW OB HISTORY: Blood ?Height: ??5'3 ?Weight (lb): 115 ? BMI: ??20.37 Type: EVALUATION: Num Of Fetuses: ? 1 Heart ? 142 Rate(bpm): Cardiac Activity: ?? Observed, normal r hythm Presentation: ? Cephalic Placenta: ? Right lateral P. Cord Insertion: ??Not visualized Amniotic Fluid CONSTANZA FV: ?Normal CONSTANZA Sum(cm) ? Lar gest Pocket(cm) 15.41 ? 4.51 RUQ(cm) ? RLQ(cm) ? LUQ(c m) ?LLQ(cm) 4.51 ?2.43 ?4 .37 ? 4.1 --------- BIOMETRY: --------- BPD: ?84.0 ??mm ? G.Age: ?? 33w 6d ?83 ??% OFD: ? 111.2 ??mm HC: ?317.4 ??mm ? G.Age: ?? 35w 5d ?92 ??% AC: ?285.4 ??mm ? G.Age: ?? 32w 4d ?57 ??% FL: ? 64.0 ??mm ? G.Age: ?? 33w 1d ?59 ??% HUM: ?58.0 ??mm ? G.Age: ?? 33w 4d ?81 ??% HUM: ?58.0 ??mm ? G.Age: ?? 33w 4d ?81 ??% FL: ? 64.0 ??mm ? G.Age: ?? 33w 1d ?59 ??% CI: ?75.5 ??% ? 70 - 86 FL/HC: ? 20.2 ??% ? 19.1 - 21.3 HC/AC: ? 1.11 ?0.96 - 1.17 FL/BPD: ?76.2 ??% ? 71 - 87 FL/AC: ? 22.4 ??% ? 20 - 24 Est. FW: ?2126 ?? gm ?? 4 lb 11 oz ? 83 ??% GESTATIONAL AGE: Clinical SREEKANTH: ??32w 2d ?SREEKANTH: ?? 08/27/17 U/S Today: ? 33w 6d ?SREEKANTH: ?? 08/16/17 Best: ?32w 2d ?? Det. By: ??Clinical SREEKANTH ? SREEKANTH: ?? 08/27/17 -------- ANATOMY: -------- Cranium: ? Visualize d Cavum: ? Visualiz ed Ventricles: ?Visualized Choroid Plexus: ?Visualized Cerebellum: ?Limited vi ews Posterior Fossa: ? Limited views Nuchal Fold: ? Not evaluat ed at this gestational age Face: ?Limited views Heart: ? 4-chambe r view appears normal RVOT: ?Visuali zed LVOT: ?Visuali zed Diaphragm: ? Visualized Stomach: ? Visualize d Abdomen: ? Within No rmal Limits Abdominal Wall: ?Not seen due to position Cord Vessels: ?3-vessels- WNL Kidneys: ? Visualize d Bladder: ? Visualize d Spine: ? Limited views Upper Extremities: ? Limited views Lower Extremities: ? Limited views CERVIX UTERUS ADNEXA: Left Ovary Not visualized Right Ovary Not visualized Procedure Note Janay Joiner MD - 07/04/2017Formattin fauzia of this note might be different from the original. OBSTETRICS REPORT (Signed Final 017 04:19 pm) PATIENT INFO: ID #: [id number] : [birth year] (41 y rs) Name: ELISEO RUIZ Visit Date: 2016 04:04 pm PERFORMED BY: Performed By: Shanice Michaels RDMS Attending: Janay Joiner MD Resident: Ledy Mendez MD Referred By: BEVERLY RODRÍGUEZ Location: [place] SERVICE(S) PROVIDED: UOBFOL - Efw - Growth - [place] - [facility] 1703 [id number] INDICATIONS: 32 weeks gestation of Z3A.32 marginal cord insertion, AFV, EFW OB HISTORY: Blood Height: 5'3 Weight (lb): 115 BMI : 20.37 Type: EVALUATION: Num Of Fetuses: 1 Heart 142 Rate(bpm): Cardiac Activity: Observed, normal rhyt hm Presentation: Cephalic Placenta: Right lateral P. Cord Insertion: Not visualized Amniotic Fluid CONSTANZA FV: Normal CONSTAZNA Sum(cm) Largest Pocket(cm) 15.41 4.51 RUQ(cm) RLQ(cm) LUQ(cm) LLQ(cm) 4.51 2.43 4.37 4.1 --------- BIOMETRY: --------- BPD: 84.0 mm G.Age: 33w 6d 83 % OFD: 111.2 mm HC: 317.4 mm G.Age: 35w 5d 92 % AC: 285.4 mm G.Age: 32w 4d 57 % FL: 64.0 mm G.Age: 33w 1d 59 % HUM: 58.0 mm G.Age: 33w 4d 81 % HUM: 58.0 mm G.Age: 33w 4d 81 % FL: 64.0 mm G.Age: 33w 1d 59 % CI: 75.5 % 70 - 86 FL/HC: 20.2 % 19.1 - 21.3 HC/AC: 1.11 0.96 - 1.17 FL/BPD: 76.2 % 71 - 87 FL/AC: 22.4 % 20 - 24 Est. FW: 2126 gm 4 lb 11 oz 83 % GESTATIONAL AGE: Clinical SREEKANTH: 32w 2d SREEKANTH: 08/27/17 U/S Today: 33w 6d SREEKANTH: 08/16/17 Best: 32w 2d Det. By: Clinical SREEKANTH SREEKANTH: 08/27/17 -------- ANATOMY: -------- Cranium: Visualized Cavum: Visualized Ventricles: Visualized Choroid Plexus: Visualized Cerebellum: Limited views Posterior Fossa: Limited views Nuchal Fold: Not evaluated at this gest ational age Face: Limited views Heart: 4-chamber view appears normal RVOT: Visualized LVOT: Visualized Diaphragm: Visualized Stomach: Visualized Abdomen: Within Normal Limits Abdominal Wall: Not seen due to p osition Cord Vessels: 3-vessels- WNL Kidneys: Visualized Bladder: Visualized Spine: Limited views Upper Extremities: Limited views Lower Extremities: Limited views CERVIX UTERUS ADNEXA: Left Ovary Not visualized Right Ovary Not visualized IMPRESSION 3rd Trimester Summary Single intrauterine with a ge stational age of 32w 2d based on Clinical SREEKANTH Composite age based on the current ultr asound alone is 33w 6d. Estimated weight corresponds to t he 83th percentile for 32w 2d. Current growth parameters are consisten t with prior dating indicating normal growth. Amniotic fluid volume is Normal, CONSTANZA = 15.41 cm, MVP = 4.51 cm Anatomical survey is limited due to the late gestational age. I viewed the images and agree with the above interpretation. Janay Joiner MD Electronically Signed Final Report 07/04 04:19 pm Beverly Gillis Marcos GRETCHEN IM US OB ORDERABLES documented in this encounter Visit Diagnoses Diagnosis Marginal insertion of umbilical cord aff ecting management of mother documented in this encounter Care Teams Environment Artist Relationship Specialty Start Date End Date Елена Coates MD PCP - General 08/29/10 [address] [place] [address] documented as of this encounter
--- OUTSIDE RECORDS SUMMARY | 2022-05-25 01:41 | XMS_ITS | Encounter Summary ---
:1975 Author Organization [place] [address] Care Team Providers Name Role Phone Елена Coates MD Primary Care Provider Encounter Details Date Type Department Care Team Description 12/25/2006 Orders Only Radiology and Cardiology Apd Conversion, Results Results Provider, [address] [place] [id number] Social History Tobacco Use Types Packs/Day Years Used Date Never Assessed Sex Assigned at Date Recorded Not on file documented as of this encounter Plan of Treatment Not on filedocumented as of this encounter Procedures Procedure Name Priority Date/Time Associated Diagnosis Comme nts CYTOPATHOLOGY Routine 12/25/2006 Results for th is GYNECOLOGICAL procedure are in the results section . documented in this encounter Results (ABNORMAL) Cytopathology Gynecological (12/25/2006) [facility] Method Time Signature Retail Product Demo Specialist Cytology Please see BERE FAIRCHILD Final Report Bere Verma legacy report (External Lab) Specimen (Source) Anatomical Location Collection Method / Collectio n Time Received Time / Laterality Volume 12/25/2006 Narrative BERE THACKER CONVERSION - 01/01/2007 Please see Bere Fairchild Legacy report Results Provider Apd Conversion PATHOLOGY/CYTOLOGY ORDERABLES Performing Organization Address City/State/ZIP Code Phon e Number BERE VERMA CONVERSION [address] Verma [place], [place] [address] BERE VERMA CONVERSION documented in this encounter Visit Diagnoses Not on filedocumented in this encounter Care Teams Behavior Therapist Relationship Specialty Start Date End Date Елена Coates MD PCP - General 08/29/10 [address] [place] [address] documented as of this encounter
--- OUTSIDE RECORDS SUMMARY | 2022-05-25 01:41 | XMS_ITS | Encounter Summary ---
:1975 Author Organization [facility] [place] [address] Care Team Providers Name Role Phone Елена Coates MD Primary Care Provider Reason for Visit Reason Comments Routine Visit Encounter Details Date Type Department Care Team Description 07/04/2017 Routine Obstetrics and Carmen Rodríguez APRN [place]: [id number] Gynecology at [facility] [address] [place] & [place] [address] GYNECOLOGY [phone] [place], [place] [address] (Wo rk) Social History Tobacco Use Types Packs/Day Years Used Date Former Smoker Cigarettes Quit: 10/07/19 Smokeless Tobacco: Never Used Alcohol Use Standard Drinks/Week Comments No 0 (1 standard drink = 0.6 oz pure alcoho l) Sex Assigned at Date Recorded Not on file documented as of this encounter Last Filed Vital Signs Vital Sign Reading Time Taken Comments Blood Pressure 133/78 07/04/2017 4:24 PM EDT Pulse - - Temperature - - Respiratory Rate - - Oxygen Saturation - - Inhaled Oxygen Concentration - - Weight 58.7 kg (129 lb 4.8 oz) 07/04/2017 4:24 PM EDT Height - - Body Mass Index 22.72 01/22/2017 10:20 AM EDT documented in this encounter Progress Notes Shanice Schofield LPN - 07/04/2017 4:20 PM EDT The patient denies travel by her or her partner to an area with endemic Zika infection including [place]. In the past year: Ob Screener 01/22/2017 Drinking frequency 2 to 4 times a month Drinks per day 1 to 2 drinks 4+ drinks on one occasion Never KARYN Never Carmen Rodríguez APRN - 07/04/2017 4:20 PM EDT US today all WNL, adequate fluid, 83%ile, good wt gain, baby active, no cramps, bleeding or LOF. We have received many pages of pt medical records but we still do not have OR note from C/S in 2009. Kalyn will put one last request in for the note. Pt would like . documented in this encounter Plan of Treatment Not on filedocumented as of this encounter Visit Diagnoses Diagnosis AMA (advanced maternal age) multigravida 35+, third trimester documented in this encounter Care Teams Scarfing Machine Operator Relationship Specialty Start Date End Date Елена Coates MD PCP - General 08/29/10 [address] [place] [address] documented as of this encounter
--- OUTSIDE RECORDS SUMMARY | 2022-05-25 01:41 | XMS_ITS | Encounter Summary ---
:1975 Author Organization [facility] [place] [address] Care Team Providers Name Role Phone Елена Coates MD Primary Care Provider Reason for Visit Reason Comments Skin Check Encounter Details Date Type Department Care Team Description 04/25/2017 Office Visit Dermatology at [facility] Dmitriy Becker MD [place]; [address] [place] [address] Dermatofibroma [place] [address] [place] [address] [phone] (Wo rk) Social History Tobacco Use Types Packs/Day Years Used Date Former Smoker Cigarettes Quit: 10/07/19 00 Smokeless Tobacco: Never Used Alcohol Use Standard Drinks/Week Comments No 0 (1 standard drink = 0.6 oz pure alcoho l) Sex Assigned at Date Recorded Not on file documented as of this encounter Progress Notes Dmitriy Becker MD - 04/25/2017 9:45 AM EDT PROBLEM: Skin checkup. Sisi follows up and is now 41. She is again and is here today with her son, Kip. She would like to have a general skin checkup. She is concerned about a lesion on her right lower posterior thigh. Physical examination reveals a dermatofibroma on the right posterior thigh. She has brown eyes and fair complexion and fair hair. She has numerous junctional melanocytic nevi which appear benign by the ABCD criteria. They are present on her arms, her legs and back. She has a fibrous papule of the nose with an angioid component on the left nasal tip. We discussed the option of electrodesiccation of this after . She has some mild melasma/solar lentigo on the right malar prominence. We discussed utilizing tretinoin/hydroquinone for this following her . Otherwise careful examination of the head and the neck, the chest, the back, hands, arms, forearms, thighs and the calves is benign. A/P: Dermatofibroma right posterior thigh. a. Patient reassured. b. No treatment necessary. 2. Benign nevi. a. Patient reassured about benign skin examination, benign nevi. b. I am happy to see the patient on a q 2- to 3-year basis for repeat skin checkups. 3. History of telangia effluvium. a. Total resolution after this 2014 episode which was likely due to the factors discussed on the 04/26/2015 dictation. 4. Melasma/solar lentigo right malar prominence. a. Following I recommend trial of hydroquinone 4% cream, applying q a.m., and tretinoin 0.025% cream, applying at bedtime. She will call when she would like to have prescriptions for these given. Would give 30 g of the former, 20 g of the latter, with 3 refills of each, and could call in to her pharmacy of choice. Cc: Елена Coates MD documented in this encounter Plan of Treatment Not on filedocumented as of this encounter Visit Diagnoses Diagnosis Nevus Benign neoplasm of skin, site unspecifie d Dermatofibroma Benign neoplasm of skin, site unspecifie d documented in this encounter Care Teams [employer] Paralegal Relationship Specialty Start Date End Date Елена Coates MD PCP - General 08/29/10 [address] [place] [address] documented as of this encounter
--- OUTSIDE RECORDS SUMMARY | 2022-05-25 01:41 | XMS_ITS | Encounter Summary ---
:1975 Author Organization [facility] [place] [place] [address] Care Team Providers Name Role Phone Елена Coates MD Primary Care Provider Encounter Details Date Type Department Care Team Description 03/15/2017 Laboratory Appointment Lab 3L Ovidio Kimball Encounter for [facility] screening [facility] [place] [id number] Social History Tobacco Use Types Packs/Day Years [...] Name Priority Date/Time Associated Diagnosis Comme nts ALPHA FETOPROTEIN, Routine 03/15/2017 10:12 AM Encounter for R esults for this MATERNAL EDT screening procedur e are in of mother the results section. documented in this encounter Results Alpha Fetoprotein, Maternal (03/15/2017 10:12 AM EDT) [facility] gist Method Time Signature AFP Maternal See Scan OVIDIO SÁNCHEZCOCK Serum Report [facility] Comment: Test performed by [facility], [address] [place] [address] Specimen Anatomical Collection Method Collection Time Receive d Time (Source) Location / / Volume Laterality Blood specimen 03/15/2017 10:12 201 7 3:11 (specimen) AM EDT PM EDT Narrative This result has an attachment that is no t available. Resulting Agency Comment Spec In Lab Ashleigh Leach MD CHEMISTRY ORDERABLES Performing Organization Address City/State/ZIP Code Phon e Number [place] [phone] documented in this encounter Visit Diagnoses Diagnosis Encounter for screening of mot her Unspecified screening documented in this encounter Care Teams Sheeter Operator Relationship Specialty Start Date End Date Елена Coates MD PCP - General 08/29/10 [address] [place] [address] documented as of this encounter
[2022-05-25 08:32] LABS: Calculated LDL 97 mg/dL (<100); Cholesterol 194 mg/dL (<200); HDL Cholesterol 82 mg/dL (40-60); Triglyceride 75 mg/dL (<150)
== END 2022-05-25 01:39 | disposition home or self-care (01) ==
PROVIDERS: PCP Family Medicine; Visit Provider Family Medicine
DX: Z13.220 Encounter for screening for lipoid disorders (principal)
CPT/HCPCS: 36415; 80061